=== PATIENT | male | born 1950 | race Caucasian/White ===

== ENCOUNTER 2018-10-12 06:22 | Day surgery (SDC) | payer BC ==
--- NOTE | 2018-10-11 19:36 | HP ---
HISTORY AND PHYSICAL CHIEF COMPLAINT: Left shoulder pain. HISTORY OF PRESENT ILLNESS: The patient is 68 years old, [id number], who presents with progressive left shoulder pain for the past several months. He has tried conservative measures with persistent pain with overhead use and at night. He notes that it limits his normal function and activities. PAST MEDICAL HISTORY: 1. Hypertension. 2. Myasthenia gravis. 3. Reflux disease. 4. Hypothyroidism. PAST SURGICAL HISTORY: 1. Partial thyroidectomy. 2. Left elbow olecranon bursectomy. 3. Right inguinal hernia repair. 4. Bilateral knee arthroscopy. 5. Bilateral cataract removal. 6. Colonoscopy. CURRENT MEDICATIONS: Current medications include: 1. Lasix. 2. Metoprolol. 3. Prednisone. 4. Terazosin. ALLERGIES: HE DENIES DRUG ALLERGIES. FAMILY HISTORY: Significant for heart disease. SOCIAL HISTORY: Negative for current tobacco or alcohol use. REVIEW OF SYSTEMS: Sixteen-point review of systems otherwise reviewed and is noncontributory. PHYSICAL EXAMINATION: The patient is approximately 5 feet 10 inches tall, 210 pounds of mesomorphic habitus. HEENT exam is nonfocal. NECK: Supple. He has painless cervical spine motion with Active range of motion of left shoulder forward elevation 145 degrees, external rotation degrees, internal rotation to L2. Motor strength is 5-/5 for abduction and external rotation. He has moderate subacromial crepitus. Impingement test, Neer test and Speed tests are positive. His distal neurovascular exam appears intact in the left upper extremity. MRI report left shoulder shows evidence of a possible full-thickness tear supraspinatus insertion. Intra-articular bicipital tendinosis is also noted. IMPRESSION: 1. Left shoulder impingement with symptomatic rotator cuff tear. 2. Left shoulder bicipital tendinosis. RECOMMENDATIONS: I talked to the patient at length regarding his condition along with treatment options. At this point he is quite symptomatic and opts to proceed with surgery. We will plan to proceed with arthroscopic evaluation with probable subacromial decompression, possible rotator cuff repair versus debridement, and possible biceps tenotomy. We will likely perform that as an outpatient procedure. Risks and benefits were discussed at length in layman's terms. MMODL / IJN: [id number] /
[~2018-10-12 06:22] MED LIST: DEXAMETHASONE SOD PHOSPHATE 10 MG/ML 1 ML VIAL IV ONE; LACTATED RINGERS 1,000 ML IV SCH; MIDAZOLAM 2 MG/2 ML VIAL IV PRN; ONDANSETRON 4 MG/2 ML VIAL IVP ONE
[2018-10-12] MEDS ORDERED: HYDROCORTISONE SUCCINATE 100 MG/2 ML VIAL IVP ONE (07:36)
[2018-10-12 07:40] LABS: Glucose,Whole Blood 100 mg/dL (75-99)
[2018-10-12] MEDS ORDERED: ePHEDrine SULFATE/0.9% NACL/PF 50 MG/5 ML SYRINGE IV ONE (07:52)
[2018-10-12] MEDS ORDERED: MIDAZOLAM 2 MG/2 ML VIAL ONE (07:52)
[2018-10-12] MEDS ORDERED: SUCCINYLCHOLINE CHLORIDE 100 MG/5 ML SYR IV ONE (07:52)
[2018-10-12] MEDS ORDERED: fentaNYL (PF) 50 MCG/ML 2 ML AMP ONE (07:52)
[2018-10-12] MEDS ORDERED: PROPOFOL 10 MG/ML 20 ML VIAL IV ONE (07:52)
[2018-10-12] MEDS ORDERED: EPINEPHrine (PF) 1 ML in SODIUM CHLORIDE 0.9% IRRIGATIO 3,000 ML IRRIGATION ONE ×8 (08:08)
--- NOTE | 2018-10-12 09:18 | P.OP ---
Date of Procedure: 10/12/18 Preoperative Diagnosis: Symptomatic left rotator cuff tear Postoperative Diagnosis: 1.5 cm rotator cuff tear, high-grade partial-thickness tear intra-articular long head of biceps, type II SLAP lesion Procedure(s) Performed: Left shoulder arthroscopic subacromial decompression/superior labral debridement/biceps tenotomy/rotator cuff repair Implants: Arthrex 5.5 mm swivel lock anchor 1 Anesthesia: favian SHETTY Surgeon: Luciano Grijalva Carton Forming Machine Adjuster #1: Agustin Rodriguez Estimated Blood Loss (ml): 10 Pathology: none sent Condition: stable Disposition: PACU Indications for Procedure: The patient's a 68-year-old male who presents with progressive left shoulder pain despite conservative measures. A discussion of the risks and benefits of operative intervention versus continued conservative measures was made with the patient. He opted to proceed with surgery. Operative risks to include infection, neurovascular injury, development of blood clots, possible tendon rerupture, possible postoperative stiffness and need for subsequent procedures was discussed. Informed consent was obtained. Operative Findings: As below Description of Procedure: The patient was brought to the operating room, and after induction of general anesthesia was placed in a beachchair position. A preoperative interscalene block was placed for postoperative analgesia. I examined the left shoulder. There was no gross block to passive motion or gross glenohumeral instability. The left upper extremity was prepped and draped in normal fashion. The bony outlines the acromion, distal clavicle, and coracoid process were outlined with a skin marker. The glenohumeral joint was inflated with 50 mL of saline utilizing a spinal needle from posterior approach. A posterior portal was made through a 5 mm skin incision 1 cm medial and inferior to the posterior lateral border time. A blunt trocar was used to easily into the joint. Diagnostic arthroscopy was performed. An anterior portal was made just lateral to the coracoid process entering the joint above the subscapularis tendon. The subscapularis tendon appeared to be intact. Anterior labrum was intact. The inferior recess was inspected. The posterior labrum was intact. There was a high-grade partial-thickness tear of the long head of the biceps involving interarticular portion. It was elected to proceed with release at this point. This was released from the superior labrum with electrocautery and was allowed to retract to the bicipital groove. A type II superior labral tear was noted in this was debrided back to stable base with a motorized shaver. On inspection the rotator cuff a full-thickness tear involving the anterior aspect the supraspinatus was noted.. A lateral portal was made 2 centimeters inferior to the anterior lateral border of the acromion. The rotator cuff was then mobilized with a traction suture. This was then easily brought back to the greater tuberosity. The soft tissue on the undersurface of the acromion was debrided with a motorized shaver and electrocautery clearly defining the anterior medial and lateral borders as well as the distal clavicle. An anterior inferior acromioplasty was performed with a motorized carmencita starting anterolateral, then extending this posteriorly, then extending this medially. I converted to a flat acromion and this was verified in the posterior and lateral viewing portals. The greater tuberosity was lightly decorticating with a shaver down to a bleeding bony surface. A #2 fiber tape was passed through the rotator cuff with a scorpion suture passer. A central fiber link was also placed. A lateral anchor was placed utilizing the appropriate starting awl. 5.5 mm swivel lock anchor was inserted. Good purchase was obtained. Final arthroscopic view showed adequate compression at the footprint. The arthroscope was then removed. The portals were closed with simple 3-0 nylon sutures. A sterile dressing was applied in addition to a sling. The patient was then awoken from general anesthesia and transferred to recovery room in good condition. Blood loss was estimated at 10 mL. No complications were incurred. Sponge and needle counts were correct in the case. Duarte CORTEZ assisted and the major components of the case to include arm positioning, anchor placement, and rotator cuff repair.
[2018-10-12 09:29] VITALS: TEMP 97.2
[2018-10-12] MEDS: HYDROmorphone 0.5 MG/0.5 ML SYRINGE IVP PRN ×4 (09:38→09:56)
[2018-10-12] MEDS ORDERED: fentaNYL (PF) 50 MCG/ML 2 ML AMP IVP ONE ×2 (10:11→10:16)
[2018-10-12] MEDS ORDERED: LACTATED RINGERS 1,000 ML IV ONE (10:15)
[2018-10-12 10:21] VITALS: RESP 16
[2018-10-12 10:35] VITALS: BP 118/70
[2018-10-12] MEDS ORDERED: HYDROcodone/APAP 7.5-325MG 1 EACH TAB PO ONE (10:44)
[2018-10-12 10:49] VITALS: PULSE 64
== END 2018-10-12 11:23 | disposition home or self-care (01) ==
LOC: OR 06:22
PROVIDERS: ATTEND Orthopaedic Surgery
DX: M75.102 Unspecified rotator cuff tear or rupture of left shoulder, not specified as traumatic (principal); S46.112A Strain of muscle, fascia and tendon of long head of biceps, left arm, initial encounter; X58.XXXA Exposure to other specified factors, initial encounter; S43.432A Superior glenoid labrum lesion of left shoulder, initial encounter; I11.0 Hypertensive heart disease with heart failure; I50.9 Heart failure, unspecified; K21.9 Gastro-esophageal reflux disease without esophagitis; G70.00 Myasthenia gravis without (acute) exacerbation; F41.9 Anxiety disorder, unspecified; F41.0 Panic disorder [episodic paroxysmal anxiety]; F32.9 Major depressive disorder, single episode, unspecified; H93.3X9 Disorders of unspecified acoustic nerve; N52.8 Other male erectile dysfunction; M17.10 Unilateral primary osteoarthritis, unspecified knee; Z85.850 Personal history of malignant neoplasm of thyroid; E89.0 Postprocedural hypothyroidism; Z79.82 Long term (current) use of aspirin; Z79.52 Long term (current) use of systemic steroids; Z79.899 Other long term (current) drug therapy
CPT/HCPCS: 29826; 29827; C1713; C1894; J2250; J1100; J1720; J0690; J2405; J0171; J3010; J0330; J2704; J1170

== ENCOUNTER → 2023-03-14 | Outpatient (CLI) | payer MEDICARE, BC ==
[2023-03-14 15:27] LABS: BUN/Creat Ratio 19.42 Ratio (12.00-20.00); Blood Urea Nitrogen 23.3 mg/dL (9.0-27.0); Calcium 9.9 mg/dL (8.7-10.3); Carbon Dioxide 23.5 mmol/L (21.6-31.8); Chloride 107 mmol/L (96-109); Glucose 95 mg/dL (70-110); Potassium 4.4 mmol/L (3.5-5.5); Sodium 142 mmol/L (135-145)
[2023-03-14 15:32] LABS: HCT 45.1 % (39.6-50.0); HGB 15.6 g/dL (13.0-17.0); RBC 5.01 X 10*6/uL (4.40-5.60); WBC 7.43 X 10*3/uL (4.50-10.00)
[2023-03-14 15:33] LABS: Basophils # (A) 0.03 X 10*3/uL (0.00-0.10); Basophils % (A) 0.4 %; Eosinophils # (A) 0.08 X 10*3/uL (0.04-0.35); Eosinophils % (A) 1.1 %; Lymphocytes # (A) 1.36 X 10*3/uL (0.90-5.00); Lymphocytes % (A) 18.3 %; MCH 31.1 pg (27.0-32.0); MCHC 34.6 g/dL (32.0-37.0); Mean Platelet Volume 10.4 FL (9.5-12.2); Monocytes # (A) 0.58 X 10*3/uL (0.20-1.00); Monocytes % (A) 7.8 %; NRBC Per 100 WBC 0 X 10*3/uL (0.00-0.01); Neutrophils # (A) 5.36 X 10*3/uL (1.80-7.70); Neutrophils % (A) 72.1 %; Platelet Count 244 X 10*3/uL (140-440); RDW 13.8 % (11.5-14.5)
== END | disposition home or self-care (01) ==
LOC: LABPAT 11:26
PROVIDERS: ATTEND Orthopaedic Surgery
DX: G70.00 Myasthenia gravis without (acute) exacerbation (principal)
CPT/HCPCS: 80048; 85025; 86850; 86900; 86901; 87070

== ENCOUNTER → 2023-03-14 | Outpatient (CLI) | payer MEDICARE, BC | END | disposition home or self-care (01) | LOC: LABWHC1 11:29 | PROVIDERS: ATTEND Family Medicine | DX: Z53.9 Procedure and treatment not carried out, unspecified reason (principal) ==

== ENCOUNTER 2023-03-21 05:45 | Day surgery (SDC) | payer MEDICARE, BC ==
[2023-03-15 12:54] VITALS: BMI 27.2
--- NOTE | 2023-03-20 08:12 | P.HPOR ---
History of Present Illness H&P Date: 03/20/23 Chief Complaint: Left hip pain The patient is a 72-year-old retired male who presents with progressive left hip pain for the past several years worsening recently. He is having pain with weightbearing activities. He notes giving way. He notes groin and thigh pain. He has tried medications without much relief. He is having night symptoms. Review of Systems Negative except as in HPI Past Medical History Past Medical History: Cancer, Hypertension, Osteoarthritis (OA) Additional Past Medical History / Comment(s): MYASTHENIA GRAVIS DIAGNOSED POST ANESTHESIA WHEN HE BACK SURGERY, NO symptoms with myasthenia gravis. HEADACHES FROM IG INFUSION. 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 THYROID CANCER. GOUT,Covid 2020-ICU petr collapsed lungs History of Any Multi-Drug Resistant Organisms: None Reported Past Surgical History: Hernia Repair, Orthopedic Surgery Additional Past Surgical History / Comment(s): 11/12/18 RIGHT SHOULDER. LUMBAR BACK SURGERY FUSION HAS 2 RODS AND CAGES, RIGHT AND LEFT KNEE ARTHROSCOPIC, RIGHT ING,HERNIA X2. PARTIAL THYROIDECTOMY Past Anesthesia/Blood Transfusion Reactions: No Reported Reaction Additional Past Anesthesia/Blood Transfusion Reaction / Comment(s): no hx blood transfusion Smoking Status: Never smoker - Past Family History Mother Family Medical History: No Reported History Medications and Allergies Home Medications Medication Instructions Recorded Confirmed Type Furosemide [Lasix] 20 mg PO QAM PRN 11/12/15 03/15/23 History Potassium Chloride [Klor-Con 20] 20 meq PO HS 11/12/15 03/15/23 History Terazosin HCl [Hytrin] 10 mg PO HS 11/12/15 03/15/23 History Acetaminophen 325 - 650 mg PO Q6H PRN 10/09/18 03/15/23 History Calcium/Magnesium/Zinc 1 tab PO DAILY 10/09/18 03/15/23 History [Zajcxan-Oeddogzqw-Epjc Tablet] Ivig 1 dose IV Q42D 10/09/18 03/15/23 History Metoprolol Tartrate [Lopressor] 25 mg pe PO HS 10/09/18 03/15/23 History predniSONE 20 mg PO PANIAGUA 10/09/18 03/15/23 History Cholecalciferol [Vitamin D3 (125 125 mcg PO DAILY 03/15/23 03/15/23 History Mcg = 5000 Iu)] SUMAtriptan succinate 50 mg PO DIRECTED PRN 03/15/23 03/15/23 History diphenhydrAMINE [Benadryl] 25 mg PO ONCE PRN 03/15/23 03/15/23 History mycophenolate mofetiL [Cellcept] 1,000 mg PO HS 03/15/23 03/15/23 History mycophenolate mofetiL [Cellcept] 500 mg PO QAM 03/15/23 03/15/23 History Allergies Allergy/AdvReac Type Severity Reaction Status Date / Time adhesive tape Allergy skin Verified 03/15/23 12:22 redness Physical Examination - Hip left Gait: antalgic Tenderness with palpation: anterior Pain with motion: internal rotation and hip flexion ROM: flexion: 80 degrees ROM: internal rotation: 10 degrees (With pain) ROM: external rotation: 60 degrees Crepitus with motion: Yes Strength: abduction: 4/5 Tests: impingement tests: positive Results The patient is a well-developed well-nourished male proximal 5 foot 10, 185 pounds of the Sushila habitus. HEENT exam is nonfocal, neck is supple. He has painful limited passive motion of the left hip. Clinically he has shortening compared to the right. He has a Trendelenburg gait pattern. His distal neurovascular appears intact in the left lower extremity. - Diagnostic results Hip MRI: image reviewed (MRI of the left hip shows evidence of severe osteoarthrosis with [id number] changes.) Assessment and Plan Assessment: Left hip severe osteoarthrosis Plan: I talked with the patient at length regarding his condition along with treatment options. At this point he is quite limited because of pain related to his left hip osteoarthrosis despite conservative measures. After a thorough discussion, he opts to proceed with surgery. We will plan to proceed with left total hip arthroplasty utilizing an anterior approach. Risks and benefits were discussed at length in layman's terms. We will institute DVT prophylaxis postoperatively.
[~2023-03-21 05:45] MED LIST changes: +ACETAMINOPHEN TAB 500 MG TAB PO PRN; -DEXAMETHASONE SOD PHOSPHATE 10 MG/ML 1 ML VIAL IV ONE; -LACTATED RINGERS 1,000 ML IV SCH; +MELOXICAM 7.5 MG TAB PO PRN; -MIDAZOLAM 2 MG/2 ML VIAL IV PRN; -ONDANSETRON 4 MG/2 ML VIAL IVP ONE; +TRANEXAMIC 1,000 MG/100ML-NACL 1,000 MG in SALINE 1 100ML.BAG IVPB PRN
[2023-03-21] MEDS: LACTATED RINGERS 1,000 ML IV SCH ×2 (06:41→07:31)
[2023-03-21 07:05] LABS: Prothrombin Time 11.1 sec (10.0-12.5)
[2023-03-21] MEDS: ONDANSETRON 4 MG/2 ML VIAL IVP ONE ×2 (07:05→14:35)
[2023-03-21] MEDS ORDERED: MIDAZOLAM 2 MG/2 ML VIAL IVP ONE ×2 (07:05→07:17)
[2023-03-21] MEDS ORDERED: fentaNYL (PF) 50 MCG/ML 2 ML AMP IVP ONE (07:17)
[2023-03-21] MEDS ORDERED: fentaNYL (PF) 50 MCG/ML 2 ML AMP ONE (07:27)
[2023-03-21] MEDS ORDERED: PHENYLEPHRINE 10 MG/ML VIAL ONE (07:27)
[2023-03-21] MEDS ORDERED: MIDAZOLAM 2 MG/2 ML VIAL ONE (07:27)
[2023-03-21] MEDS ORDERED: SUGAMMADEX SODIUM 200 MG/2 ML SDV IV ONE (07:27)
[2023-03-21] MEDS ORDERED: ROCURONIUM 10 MG/ML (5 ML VIAL) IV ONE (07:27)
[2023-03-21] MEDS ORDERED: HYDROmorphone (PF) 1 MG/ML ONE (07:27)
[2023-03-21] MEDS ORDERED: LIDOCAINE 1% INJ 10MG/ML (20 ML MDV) ONE (07:27)
[2023-03-21] MEDS ORDERED: PROPOFOL 10 MG/ML 20 ML VIAL IV ONE (07:27)
[2023-03-21] MEDS ORDERED: ePHEDrine 50 MG/ML 1 ML VIAL ONE (07:27)
[2023-03-21] MEDS ORDERED: TRANEXAMIC 1,000 MG/100ML-NACL PREMIX BAG ONE (07:27)
[2023-03-21] MEDS ORDERED: ROPIVACAINE 5 MG/ML 30 ML VIAL ONE (07:27)
[2023-03-21] MEDS ORDERED: ceFAZolin 3,000 MG in SODIUM CHLORIDE 0.9% IRRIGATIO 3,000 ML IRRIGATION ONE (08:03)
[2023-03-21] MEDS ORDERED: LACTATED RINGERS 1,000 ML IV ONE (09:07)
[2023-03-21] MEDS ORDERED: hydrOXYzine pamoate 25 MG CAP PO PRN (09:14)
[2023-03-21] MEDS ORDERED: HYDROmorphone 0.5 MG/0.5 ML SYRINGE IVP PRN ×2 (09:14)
[2023-03-21] MEDS ORDERED: MAGNESIUM HYDROXIDE 2,400 MG/30 ML CUP PO PRN (09:14)
[2023-03-21] MEDS ORDERED: HYDROcodone/APAP 5-325MG 1 EACH TAB PO PRN (09:14)
[2023-03-21] MEDS ORDERED: NALOXONE 0.4 MG/ML 1 ML VIAL IV PRN (09:14)
--- NOTE | 2023-03-21 09:38 | P.OP ---
Date of Procedure: 03/21/23 Preoperative Diagnosis: Left hip severe osteoarthrosis Postoperative Diagnosis: Same Procedure(s) Performed: Left total hip arthroplastypress-fit anterior approach Implants: Depuy Corail size [id number] standard collared press-fit femoral stem, 49 mm/28 mm dual mobility femoral head, 58 mm Edmonds acetabular shell with metal acetabular liner. Anesthesia: DIOGENES Surgeon: Luciano Grijalva Interior Surface Insulation Worker #1: Ariseto Weston Estimated Blood Loss (ml): 150 Pathology: none sent Indications for Procedure: The patient's a 72-year-old male presents with progressive left hip pain secondary to osteoarthrosis despite conservative measures. A discussion of the risks and benefits of operative intervention versus continued conservative measures was made with patient. He opted to proceed with surgery. Specific risks of surgery to include infection, neurovascular injury, development of blood clots, fracture, leg length discrepancy, possible instability, possible component loosening/failure and need for subsequent procedures was discussed. Informed consent was obtained. Operative Findings: As below Description of Procedure: The patient was brought to the operating room, and after induction of spinal anesthesia was placed supine on the Nehal table. Positioning was checked with fluoroscopy. The left hip was then prepped and draped in a normal fashion. A 12 cm incision was then made starting 2 fingerbreadths distal and 3 finger breaths posterior to the ASIS in line with the proximal femur. The skin was incised sharply. Subcutaneous tissues were divided sharply. Electrocautery was used for hemostasis. The fascia was split in line with skin incision. The interval between the sartorius and tensor fascia patricia was then bluntly developed. The posterior fascia was opened with electrocautery. The lateral circumflex vessels were identified and cauterized prior to sectioning. A retractor was placed along the superior femoral neck as well as the anterior acetabular rim. A wide capsulotomy was performed. The neck cut was then made at a 45 angle to the shaft approximately 1 1/2 cm above the level of the lesser trochanter. The head was extracted. Attention was then paid towards preparing the acetabular. Anterior and posterior retractors were placed. The remaining capsular labral tissue sharply debrided clearly defining the acetabular margins. I began reaming with a 51 mm reamer taking care to initially medialize then reaming at 45 of abduction and 20 of anteversion. Sequential reaming is performed up to 57 mm. A trial 58 mm acetabular shell was inserted in the same orientation and was fully seated. There was good rim fit and stability. Positioning was checked with fluoroscopy. The final 58 mm acetabular shell was inserted again at 45 of abduction and 20 of anteversion. This was fully seated. There was good rim fit and stability. Again fluoroscopy was used to check the adequacy of placement. A neutral metal liner was gently impacted. Care was taken to avoid any soft tissue in terposition. Pulsatile lavage was utilized. Attention was then paid towards preparing the proximal femur. The central region was cleared of soft tissue. A canal finder was used to find the femoral canal. Sequential broaching was performed up to size 14 taking care to lateralize proximally. A calcar mill was used to fashion the medial calcar. There was good rotational stability. A standard neck along with a 49/28 mm +5 femoral head was placed. The hip was gently reduced. Fluoroscopy was used to check the adequacy of positioning along with leg lengths. I felt both were good. The hip was gently dislocated. The trial components were removed. The final size 14 collared standard press-fit femoral stem was inserted parallel to the posterior cortex. This was fully seated and there was good rotational stability. A 49/28 mm +5 femoral head was placed. This was gently impacted. The hip was then gently reduced. Final fluoroscopic view showed adequate placement implant along with zoroastrianism of leg length. Stability was checked with 80 of external rotation and 60 of extension of the right hip. The wound was irrigated with sterile lavage. The fascia was closed with running 0 Vicryl suture. There was minimal drainage therefore a deep drain was not placed. The second dose of IV TXA was given. The subcutaneous tissues were reapproximated interrupted 2-0 Vicryl sutures. The skin was reapproximated with 3-0 subcuticular strata fix suture. Skin tape and adhesive was applied. A sterile dressing was applied. The patient was then awoken from sedation and transferred to recovery room in good condition. Blood loss was estimated at 150 mL. No complications were incurred. Sponge and needle counts were correct at the end of the case. Aristeo CORTEZ assisted during the major components is case to include exposure, bone resection, implantation, and closure.
[2023-03-21] MEDS: HYDROmorphone 0.5 MG/0.5 ML SYRINGE IVP PRN ×3 (09:57→10:37)
--- NOTE | 2023-03-21 10:04 | XR ---
EXAMINATION TYPE: XR Hip Limited LT DATE OF EXAM: 03/21/2023 COMPARISON: None HISTORY: Left hip replacement TECHNIQUE: AP left hip FINDINGS: Femoral prosthesis has been placed. No acute fractures are evident. Soft tissue postsurgica l changes are evident. IMPRESSION: 1. No acute fracture post left hip replacement
--- NOTE | 2023-03-21 10:56 | P.ANPRN ---
Procedure Note - Anesthesia - Nerve Block Performed Left Julio Single Time Out Performed: Yes ([id number]) Date of Procedure: 03/21/23 Procedure Start Time: : Procedure Stop Time: Location of Patient: PreOp Indication: Acute Post-Operative Pain, Requested by Surgeon Specifically requested for management of pain by DrGustavo: Luciano Grijalva Sedation Type: Sedate with meaningful contact maintained Preparation: Sterile Prep Position: Supine Catheter: None Needle Types: Pajunk Needle Gauge: 21 Ultrasound used to visualize needle placement: Yes Ultrasound used to observe medication spread: Yes Injectate: 0.5% Ropivacaine (see comment for volume) (30cc) Blood Aspirated: No Pain Paresthesia on Injection Noted: No Resistance on Injection: Normal Image Stored and Saved: Yes Events: Uneventful and Well Tolerated
--- NOTE | 2023-03-21 12:49 | XR ---
EXAMINATION TYPE: XR Hip Limited LT, FL guidance operating room DATE OF EXAM: 03/21/2023 Comparison: None Clinical History: 72-year-old male Left Hip-Ant Findings: DAP 1.2890 Gycm2. FL 26.[address] DAVIS Impression: Intraoperative fluoroscopy as above.
[2023-03-21] MEDS: HYDROcodone/APAP 7.5-325MG 1 EACH TAB PO PRN ×2 (14:24→20:42)
[2023-03-21] MEDS ORDERED: SUMAtriptan succinate 50 MG TAB PO PRN (15:50)
[2023-03-21] MEDS ORDERED: FUROSEMIDE 20 MG TAB PO PRN (15:50)
--- NOTE | 2023-03-21 16:01 | P.CONS ---
History of Present Illness - Reason for Consult Consult date: 03/21/23 Medical management Requesting physician: Luciano Grijalva - Chief Complaint Left hip surgery - History of Present Illness This is a pleasant 72-year-old patient who follows with Dr. Aubrey Grijalva. 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 Patient is in the ICU in 2020 with COVID. Patient's also had previous lumbar surgery. Has undergone left total hip arthroplasty. Some pain is present at the oper ative site. No nausea vomiting. ,Lina at the bedside. Review of systems: GEN.: Tired EYES: None HEENT: Deaf in the right ear NECK: None RESPIRATORY: None CARDIOVASCULAR: None GASTROINTESTINAL: None GENITOURINARY: None MUSCULOSKELETAL: Chronic low back pain, left hip pain LYMPHATICS: None HEMATOLOGICAL: None PSYCHIATRY: None NEUROLOGICAL: None INVESTIGATIONS, reviewed in the clinical context: 03/14/2023: White count 7.4 hemoglobin 15.6 platelets 244 sodium 142 potassium 4.4 creatinine 1.2 Assessment and plan: -Left total hip arthroplasty. Pain controllable or throat. Xarelto for DVT prophylaxis. -Myasthenia gravis. Patient admitted to his neurologist recently. Will increase the CellCept for his surgery. Patient takes prednisone 20 mg once a week on Sundays. No change of dose was recommended for that. Discussed with the patient. 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 Hytrin. Care was discussed with the patient and at the bedside. Questions answered. Thank you Dr. Grijalva Past Medical History Past Medical History: Cancer, Hypertension, Osteoarthritis (OA) Additional Past Medical History / Comment(s): MYASTHENIA GRAVIS DIAGNOSED POST ANESTHESIA WHEN HE BACK SURGERY, NO symptoms with myasthenia gravis. HEADACHES FROM IG INFUSION. 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 THYROID CANCER. GOUT,Covid 2020-ICU petr collapsed lungs History of Any Multi-Drug Resistant Organisms: None Reported Past Surgical History: Hernia Repair, Orthopedic Surgery Additional Past Surgical History / Comment(s): 11/12/18 RIGHT SHOULDER. and left shoulder, right hand surgery, LUMBAR BACK SURGERY FUSION HAS 2 RODS AND CAGES, RIGHT AND LEFT KNEE ARTHROSCOPIC, RIGHT ING,HERNIA X2. PARTIAL THYROIDECTOMY, left hip replacement Past Anesthesia/Blood Transfusion Reactions: No Reported Reaction Additional Past Anesthesia/Blood Transfusion Reaction / Comm: no hx blood transfusion Past Psychological History: Anxiety Additional Psychological History / Comment(s): CLAUSTROPHOBIC Smoking Status: Never smoker Past Alcohol Use History: None Reported Past Drug Use History: None Reported - Past Family History Mother Family Medical History: No Reported History Medications and Allergies Home Medications Medication Instructions Recorded Confirmed Type Furosemide [Lasix] 20 mg PO QAM PRN 11/12/15 03/21/23 History Potassium Chloride [Klor-Con 20] 20 meq PO HS 11/12/15 03/21/23 History Terazosin HCl [Hytrin] 10 mg PO HS 11/12/15 03/21/23 History Acetaminophen 325 - 650 mg PO Q6H PRN 10/09/18 03/21/23 History Calcium/Magnesium/Zinc 1 tab PO DAILY 10/09/18 03/21/23 History [Qeqzojs-Bersqgxdf-Ujjb Tablet] Ivig 1 dose IV Q42D 10/09/18 03/21/23 History Metoprolol Tartrate [Lopressor] 25 mg pe PO HS 10/09/18 03/21/23 History predniSONE 20 mg PO PANIAGUA 10/09/18 03/21/23 History Cholecalciferol [Vitamin D3 (125 125 mcg PO DAILY 03/15/23 03/21/23 History Mcg = 5000 Iu)] SUMAtriptan succinate 50 mg PO DIRECTED PRN 03/15/23 03/21/23 History diphenhydrAMINE [Benadryl] 25 mg PO ONCE PRN 03/15/23 03/21/23 History mycophenolate mofetiL [Cellcept] 1,000 mg PO HS 03/15/23 03/21/23 History mycophenolate mofetiL [Cellcept] 500 mg PO QAM 03/15/23 03/21/23 History Allergies Allergy/AdvReac Type Severity Reaction Status Date / Time adhesive tape Allergy skin Verified 03/21/23 06:25 redness Physical Exam Vitals: Vital Signs Temp Pulse Pulse Resp BP BP Pulse Ox 03/21/23 14:37 98.5 F 112 H 19 170/84 94 L 03/21/23 14:00 97.5 F L 62 22 135/77 96 03/21/23 13:35 64 16 122/70 99 03/21/23 13:05 61 16 126/67 98 03/21/23 12:15 59 L 16 125/65 98 03/21/23 11:45 57 L 16 127/68 98 03/21/23 11:15 61 16 125/67 98 03/21/23 10:45 64 16 127/62 99 03/21/23 10:30 65 18 123/64 99 03/21/23 10:15 63 18 114/58 100 03/21/23 10:00 63 20 129/64 99 03/21/23 09:45 66 20 121/62 99 03/21/23 09:35 97.5 F L 71 22 139/67 98 03/21/23 07:29 52 L 18 140/65 96 03/21/23 07:08 97.9 F 57 L 18 129/71 97 Intake and Output 03/21/23 03/21/23 03/21/23 06:59 14:59 22:59 Intake Total 2000 Output Total 150 Balance 1851 Intake: IV 2000 Output: Estimated Blood Loss 150 Other: Weight 87.4 kg 87.4 kg
[2023-03-21] MEDS: ONDANSETRON 4 MG/2 ML VIAL IVP PRN (16:18)
[2023-03-21] MEDS ORDERED: METOCLOPRAMIDE 5 MG/ML 2 ML VIAL IVP PRN (19:52)
[2023-03-21] MEDS: DOXAZOSIN 4 MG TAB PO SCH (20:44)
[2023-03-21] MEDS ORDERED: METOPROLOL TARTRATE 25 MG TAB PO SCH (21:00)
[2023-03-21] MEDS ORDERED: POTASSIUM CHLORIDE ER 20 MEQ TAB.ER PO SCH (21:00)
[2023-03-21] MEDS ORDERED: SENNOSIDES-DOCUSATE SODIUM 1 EACH TAB PO SCH (21:00)
[2023-03-22 03:41] VITALS: PULSE 65
[2023-03-22] MEDS: HYDROcodone/APAP 7.5-325MG 1 EACH TAB PO PRN ×2 (04:47→11:39)
[2023-03-22] MEDS: LACTATED RINGERS 1,000 ML IV SCH (08:00)
[2023-03-22] MEDS: DOXAZOSIN 4 MG TAB PO SCH (08:29)
[2023-03-22] MEDS ORDERED: NON FORMULARY DRUG (Calcium/Magnesium/Zinc [Calcium-Magnesium-Zinc Tablet] 1 EACH Tablet) PO SCH (09:00)
[2023-03-22] MEDS ORDERED: CHOLECALCIFEROL 125 MCG (5000 IU) TABLET PO SCH (09:00)
[2023-03-22] MEDS ORDERED: RIVAROXABAN 10 MG TAB PO SCH (09:00)
[2023-03-22 09:31] VITALS: BP 115/57; RESP 20; TEMP 98.6
[2023-03-22 10:45] LABS: Basophils # (A) 0.02 X 10*3/uL (0.00-0.10); Basophils % (A) 0.3 %; Eosinophils # (A) 0.09 X 10*3/uL (0.04-0.35); Eosinophils % (A) 1.2 %; HCT 33.6 % (39.6-50.0); HGB 11.3 g/dL (13.0-17.0); Lymphocytes # (A) 0.96 X 10*3/uL (0.90-5.00); Lymphocytes % (A) 12.6 %; MCH 30.8 pg (27.0-32.0); MCHC 33.6 g/dL (32.0-37.0); MCV 91.6 FL (80.0-97.0); Monocytes # (A) 0.75 X 10*3/uL (0.20-1.00); Monocytes % (A) 9.9 %; NRBC Per 100 WBC 0 X 10*3/uL (0.00-0.01); Neutrophils # (A) 5.75 X 10*3/uL (1.80-7.70); Neutrophils % (A) 75.7 %; Platelet Count 231 X 10*3/uL (140-440); RBC 3.67 X 10*6/uL (4.40-5.60); RDW 13.7 % (11.5-14.5); WBC 7.59 X 10*3/uL (4.50-10.00)
--- NOTE | 2023-03-22 10:47 | P.PN ---
Subjective Progress Note Date: 03/22/23 Principal diagnosis: Left hip osteoarthritis Patient was seen at bedside this morning with dressing present over left anterior hip. Patient says he has been doing well since surgery yesterday. Patient says last night he did walk down the hallway using walker. Patient says he has urinated several times since surgery yesterday. Patient says he is hoping to go home later today. Patient says he does have a walker for home. Patient says the pain is well-controlled with medication. Patient denies chest pain, fever, shortness breath, nausea, vomiting, change in vision, loss of bowel/bladder control. Objective - Vital Signs Vital signs: Vital Signs Temp 98.7 F 03/22/23 01:17 Pulse 65 03/22/23 01:17 Resp 18 03/22/23 01:17 BP 105/58 03/22/23 01:17 Pulse Ox 95 03/22/23 01:17 FiO2 Intake & Output 03/21/23 03/22/23 03/22/23 18:59 06:59 18:59 Intake Total 2000 Output Total 150 Balance 1851 Weight 87.4 kg Intake: IV 2000 Output: Estimated Blood Loss 150 Other: Voiding Method Urinal # Voids 3 1 - Exam Left hip: Incision is clean, dry, and intact. The exofin fusion tape is in good condition. There is minimal soft tissue swelling and ecchymosis surrounding the medial and lateral aspects of the incision. Calf is soft, no tenderness with palpation. Plantar flexion, dorsiflexion, EHL, FHL are intact. Sensory exam to light touch throughout the extremity is intact, dorsal pedis pulses 2+. Assessment and Plan Assessment: 1. Left hip osteoarthritis - Postoperative day #1 status post direct anterior left total hip arthroplasty Plan: 1. Left hip osteoarthritis - left total hip arthroplasty performed yesterday, 03/21/2023. Patient stable at bedside this morning. Patient does have a walker home. Pending PT/OT evaluation today, plan for discharge home today with health services. 2. Appreciate medical management 3. Pain management - [place] 4. DVT prophylaxis - Xarelto in hospital. Going home with Eliquis 2.5 mg twice a day times x 2 weeks 5. GI prophylaxis - senna 6. PT/OT - weightbearing as tolerated walker 7. Encourage incentive spirometer use 8. Discharge planning - home today with health services pending PT/OT eval Time with Patient: Less than 30
--- NOTE | 2023-03-22 10:52 | P.DS ---
Providers Date of admission: 03/21/2023 Expected date of discharge: 03/22/23 Attending physician: Luciano Grijalva Consults: 03/21/23 09:14 Consult Physician Routine Consulting Provider: Floyd Camarillo Consult Reason/Comments: medical management s/p direct anterior left total hip arthroplasty Do you want consulting provider notified?: Yes Primary care physician: Aubrey Grijalva Hospital Course: Date of admission: 03/21/2023 Date of discharge: 03/22/2023 Admission diagnosis: Left hip osteoarthritis Discharge diagnosis: Same Attending physician: Dr. Grijalva Surgical procedures: Direct anterior left total hip arthroplasty Brief history: Patient is a 72-year-old male with a history of progressive primary left hip osteoarthritis. At this point patient has failed conservative treatment measures and has opted to proceed with a elective left total hip arthroplasty. Hospital course: Details of patient's surgery can be found in operative report. Patient tolerated the procedure well and was subsequently transported to orthopedic floor. Patient's orthopeidc and medical care was provided daily. Patient had daily laboratory tests performed for evaluation of overall blood counts. Patient had daily physical therapy to include strengthening range of motion as well as education with walker ambulation. Patient was treated with Xarelto for their postoperative DVT prophylaxis during their inpatient stay. Patient was noted to have a relatively uneventful postoperative course. Patient reported satisfactory pain control with oral pain medications by postoperative day 1. Patient showed satisfactory progress with physical therapy. Patient moved steadily through the program and had no difficulty meeting the goals by postoperative day 1. Given patient's otherwise satisfactory course and having met physical therapy goals, plan is to discharge patient home with health services on postoperative day 1. Discharge condition/disposition: Patient will be discharged home with health services in stable condition. Discharge medications: Instructions are given on resumption of patient's normal daily medications per primary care recommendation, in addition patient will be prescribed [place]; senna; Zofran; Eliquis 2.5 mg twice a day 2 weeks. Discharge instructions: 1. Wound care and infection precautions, keep incision dry and covered while showering, no lotions, creams, moisturizers. No soaking, tubs, pools, hottubs. Do not scrub over the incision. 2. Weight-bear as tolerated with walker / cane until follow-up. 3. Ice and elevate when necessary. Do not exceed 20 minutes per hour with ice pack. 4. Utilize compression sleeve until seen at first follow up appointment. 5. Visiting nursing care. 6. Home physical therapy. 7. Pain meds and anticoagulants per prescription. 8. Pain medication has potential to cause constipation. Increase oral fluid and fiber intake. Contact primary care provider if you have not had a bowel movement within 48 hours after discharge 9. No anti-inflammatory medication until discussed at first post operative visit, this including Motrin, Aleve, Mobic, Diclofenac. 10. Follow up in office at 2 weeks postop with Duarte Rodriguez PA-C / Aristeo Weston PA-C 11. Follow up with your primary care doctor 7-10 days after discharge. 12. Contact [facility] with any questions, . Assessment: Left hip osteoarthritis Procedures: Direct anterior left total hip arthroplasty Patient Condition at Discharge: Good Plan - Discharge Summary Discharge Rx Participant: Yes New Discharge Prescriptions: New Sennosides-Docusate Sodium [Senokot-S] 2 each PO HS #60 tab Continue Potassium Chloride [Klor-Con 20] 20 meq PO HS Terazosin HCl [Hytrin] 10 mg PO HS Furosemide [Lasix] 20 mg PO QAM PRN PRN Reason: LEG SWELLING Acetaminophen 325 - 650 mg PO Q6H PRN PRN Reason: Pain Calcium/Magnesium/Zinc [Wzofeyj-Bowvlmwbe-Aziu Tablet] 1 tab PO DAILY Metoprolol Tartrate [Lopressor] 25 mg pe PO HS predniSONE 20 mg PO PANIAGUA Ivig 1 dose IV Q42D Cholecalciferol [Vitamin D3 (125 Mcg = 5000 Iu)] 125 mcg PO DAILY diphenhydrAMINE [Benadryl] 25 mg PO ONCE PRN PRN Reason: prior to IVIG infusion mycophenolate mofetiL [Cellcept] 500 mg PO QAM mycophenolate mofetiL [Cellcept] 1,000 mg PO HS SUMAtriptan succinate 50 mg PO DIRECTED PRN PRN Reason: migraines Discharge Medication List Furosemide [Lasix] 20 mg PO QAM PRN 11/12/15 [History] Potassium Chloride [Klor-Con 20] 20 meq PO HS 11/12/15 [History] Terazosin HCl [Hytrin] 10 mg PO HS 11/12/15 [History] Acetaminophen 325 - 650 mg PO Q6H PRN 10/09/18 [History] Calcium/Magnesium/Zinc [Tczslep-Dclzvtpyv-Hobf Tablet] 1 tab PO DAILY 10/09/18 [History] Ivig 1 dose IV Q42D 10/09/18 [History] Metoprolol Tartrate [Lopressor] 25 mg pe PO HS 10/09/18 [History] predniSONE 20 mg PO PANIAGUA 10/09/18 [History] Cholecalciferol [Vitamin D3 (125 Mcg = 5000 Iu)] 125 mcg PO DAILY 03/15/23 [History] SUMAtriptan succinate 50 mg PO DIRECTED PRN 03/15/23 [History] diphenhydrAMINE [Benadryl] 25 mg PO ONCE PRN 03/15/23 [History] mycophenolate mofetiL [Cellcept] 1,000 mg PO HS 03/15/23 [History] mycophenolate mofetiL [Cellcept] 500 mg PO QAM 03/15/23 [History] Sennosides-Docusate Sodium [Senokot-S] 2 each PO HS #60 tab 03/22/23 [Rx] Follow up Appointment(s)/Referral(s): Aristeo Weston PAC [PHYSICIAN [employer]] - 2 Weeks [facility] [NON-STAFF] - As Needed Aubrey Grijalva MD [Primary Care Provider] - 1 Week Patient Instructions/Handouts: Anterior Hip Replacement (DC), Anterior Hip Replacement (GEN) Activity/Diet/Wound Care/Special Instructions: Orthopedic Discharge Instructions: 1. Wound care and infection precautions, keep incision dry and covered while showering, no lotions, creams, moisturizers. No soaking, pools, hot tubs. Do not scrub over incision. 2. Weight-bear as tolerated with walker / cane until follow-up. 3. Ice and elevate when necessary. Do not exceed 20 minutes per hour with ice pack. 4. Utilize compression sleeve until seen at first follow up appointment. 5. Pain meds and anticoagulants per prescription. 6. Pain medication has potential to cause constipation. Increase oral fluid and fiber intake. Contact primary care provider if you have not had a bowel movement within 48 hours after discharge. 7. No anti-inflammatory medication until discussed at first post operative visit, this including Motrin, Aleve, Mobic, Diclofenac. 8. Follow up in office at 2 weeks postop with Duarte Rodriguez PA-C / Aristeo Weston PA-C 9. Follow up with your primary care doctor 7-10 days after discharge. 10. Contact [facility] with any questions, . Keep incision clean, dry, intact. While showering, cover fusion tape with Saran wrap. Keep fusion tape on until follow-up appointment in office 2 weeks Discharge Disposition: HOME WITH HOME HEALTH SERVICES
[2023-03-22] MEDS: ONDANSETRON 4 MG/2 ML VIAL IVP PRN (11:39)
--- NOTE | 2023-03-22 12:42 | P.PN ---
Progress Note - Text Progress Note Date: 03/22/23 - Chief Complaint Left hip surgery - History of Present Illness This is a pleasant 72-year-old patient who follows with Dr. Aubrey Grijalva. 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 Patient is in the ICU in 2020 with COVID. Patient's also had previous lumbar surgery. Has undergone left total hip arthroplasty. Some pain is present at the operative site. No nausea vomiting. ,Lina at the bedside. 03/22/2023: Some pain at the operative site. Did vomit last night. Doing better this morning. Did discuss the patient to have light meals. Special in view of pain medications. Otherwise doing well. Did ambulate for therapy. On examination: VITAL SIGNS: [98.6, 65, 20, 11 5 x 57, 96% room air] GENERAL APPEARANCE: Renal point chair, comfortable HEENT: Normal external appearance of nose and ear. Oral cavity normal EYES: Pupils equal. Conjunctiva normal. NECK: JVD not raised. Mass not palpable. RESPIRATORY: Respiratory effort normal. Lungs clear to auscultation. CARDIOVASCULAR: First and second sounds normal. No edema. ABDOMEN: Soft. Liver and spleen not palpable. No tenderness. No mass palpable. PSYCHIATRY: Alert and oriented x3. Mood and affect normal. MUSCULAR skeletal: Dressing over the left hip incision site. Evidence of OA. INVESTIGATIONS, reviewed in the clinical context: 03/23/2023: White count 7.5 hemoglobin 11.3 platelets 231 03/14/2023: White count 7.4 hemoglobin 15.6 platelets 244 sodium 142 potassium 4.4 creatinine 1.2 Assessment and plan: -Left total hip arthroplasty. Pain controllable or throat. Xarelto for DVT prophylaxis. -Acute postprocedure blood loss anemia expected from surgery Add ferrous sulfate twice a day. -Myasthenia gravis. Seen by his neurologist recently. Did increase the CellCept for his surgery. Patient takes prednisone 20 mg once a week on Sundays. No change of dose was recommended for that. Discussed with the patient. 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 Hytrin. Care was discussed with the patient. Questions answered. Patient to follow-up with his PCP upon discharge. Thank you Dr. Grijalva Past Medical History Past Medical History: Cancer, Hypertension, Osteoarthritis (OA) Additional Past Medical History / Comment(s): MYASTHENIA GRAVIS DIAGNOSED POST ANESTHESIA WHEN HE BACK SURGERY, NO symptoms with myasthenia gravis. HEADACHES FROM IG INFUSION. 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 THYROID CANCER. GOUT,Covid 2020-ICU petr collapsed lungs History of Any Multi-Drug Resistant Organisms: None Reported Past Surgical History: Hernia Repair, Orthopedic Surgery Additional Past Surgical History / Comment(s): 11/12/18 RIGHT SHOULDER. and left shoulder, right hand surgery, LUMBAR BACK SURGERY FUSION HAS 2 RODS AND CAGES, RIGHT AND LEFT KNEE ARTHROSCOPIC, RIGHT ING,HERNIA X2. PARTIAL THYROIDECTOMY, left hip replacement Past Anesthesia/Blood Transfusion Reactions: No Reported Reaction Additional Past Anesthesia/Blood Transfusion Reaction / Comm: no hx blood transfusion Past Psychological History: Anxiety Additional Psychological History / Comment(s): CLAUSTROPHOBIC Smoking Status: Never smoker Past Alcohol Use History: None Reported Past Drug Use History: None Reported
[2023-03-26] MEDS ORDERED: predniSONE 20 MG TAB PO SCH (15:50)
== END 2023-03-22 13:54 | disposition home health service (06) ==
LOC: OR 05:45 → 4SSUR 09:24 → OR 03-22 13:54
PROVIDERS: ATTEND Orthopaedic Surgery
DX: M16.12 Unilateral primary osteoarthritis, left hip (principal); G89.18 Other acute postprocedural pain; I10 Essential (primary) hypertension; G70.00 Myasthenia gravis without (acute) exacerbation; Z85.850 Personal history of malignant neoplasm of thyroid; M10.9 Gout, unspecified; Z86.16 Personal history of COVID-19; E89.0 Postprocedural hypothyroidism; Z96.652 Presence of left artificial knee joint; Z79.624 Long term (current) use of inhibitors of nucleotide synthesis; Z79.899 Other long term (current) drug therapy; Z91.048 Other nonmedicinal substance allergy status
CPT/HCPCS: 97161; 97535; 97166; 64447; 85025; 85610; 73501; 27130; C1776; J2250; J2765; J0690 ×3; J2405 ×2; J3010; J7517 ×2; J1170

== ENCOUNTER → 2023-09-08 | Outpatient (CLI) | payer MEDICARE, BC ==
[2023-09-08 13:04] LABS: Partial Thromboplastin Time 26.5 sec (22.0-30.0)
[2023-09-08 17:28] LABS: Basophils # (A) 0.04 X 10*3/uL (0.00-0.10); Basophils % (A) 0.6 %; Eosinophils # (A) 0.14 X 10*3/uL (0.04-0.35); Eosinophils % (A) 2.1 %; HCT 46.4 % (39.6-50.0); HGB 15.3 g/dL (13.0-17.0); Lymphocytes # (A) 0.97 X 10*3/uL (0.90-5.00); Lymphocytes % (A) 14.4 %; MCH 29.9 pg (27.0-32.0); MCV 90.8 FL (80.0-97.0); Monocytes # (A) 0.44 X 10*3/uL (0.20-1.00); Monocytes % (A) 6.5 %; NRBC Per 100 WBC 0 X 10*3/uL (0.00-0.01); Neutrophils # (A) 5.11 X 10*3/uL (1.80-7.70); Neutrophils % (A) 76.1 %; Platelet Count 251 X 10*3/uL (140-440); RBC 5.11 X 10*6/uL (4.40-5.60); RDW 14.3 % (11.5-14.5); WBC 6.72 X 10*3/uL (4.50-10.00)
[2023-09-08 17:47] LABS: BUN/Creat Ratio 21.75 Ratio (12.00-20.00); Blood Urea Nitrogen 26.1 mg/dL (9.0-27.0); Chloride 108 mmol/L (96-109); Glucose 100 mg/dL (70-110); Potassium 4.4 mmol/L (3.5-5.5); Sodium 143 mmol/L (135-145)
[2023-09-08 17:48] LABS: Calcium 9.7 mg/dL (8.7-10.3); Carbon Dioxide 22.7 mmol/L (21.6-31.8)
== END | disposition home or self-care (01) ==
LOC: LABWHC1 11:45
PROVIDERS: ATTEND Orthopaedic Surgery
DX: Z01.812 Encounter for preprocedural laboratory examination (principal); M17.12 Unilateral primary osteoarthritis, left knee; Z22.322 Carrier or suspected carrier of Methicillin resistant Staphylococcus aureus
CPT/HCPCS: 36415; 80048; 85025; 85610; 85730; 87070

== ENCOUNTER 2023-09-12 11:17 | Day surgery (SDC) | payer MEDICARE, BC ==
--- NOTE | 2023-09-11 08:15 | P.HPOR ---
History of Present Illness H&P Date: 09/11/23 Chief Complaint: Left knee pain Patient is a 72-year-old retired male who presents with progressive left knee pain for the past 2 years. He notes diffuse pain along with swelling and stiffness. He tried medications in addition to injections without much relief. He does have a history of left knee arthroscopy. He notes daily pain in addition to night symptoms. Review of Systems As per HPI Past Medical History Past Medical History: Cancer, Heart Failure, Hypertension, Osteoarthritis (OA) Additional Past Medical History / Comment(s): MYASTHENIA GRAVIS POST ANESTHESIA WHEN HE BACK SURGERY, NO RESIDUAL. HEADACHES FROM IG INFUSION. 2020 covid, bilateral lung collapsed in ICU FOR 4 WEEKS AT [facility]. 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 THYROID CANCER. GOUT History of Any Multi-Drug Resistant Organisms: None Reported Past Surgical History: Hernia Repair, Orthopedic Surgery Additional Past Surgical History / Comment(s): 03/21/23 left take hip arthroplasty 11/12/18 RIGHT SHOULDER. and left shoulder, right hand surgery, LUMBAR BACK SURGERY FUSION HAS 2 RODS AND CAGES, RIGHT AND LEFT KNEE ARTHROSCOPIC, RIGHT ING,HERNIA X2. PARTIAL THYROIDECTOMY, left hip replacement Past Anesthesia/Blood Transfusion Reactions: No Reported Reaction Additional Past Anesthesia/Blood Transfusion Reaction / Comment(s): MYASTHENIA GRAVIS POST LUMBAR SURGERY. Past Psychological History: Anxiety Additional Psychological History / Comment(s): CLAUSTROPHOBIC Smoking Status: Never smoker Past Alcohol Use History: None Reported Past Drug Use History: None Reported - Past Family History Mother Family Medical History: No Reported History Medications and Allergies Home Medications Medication Instructions Recorded Confirmed Type Furosemide [Lasix] 20 mg PO QAM PRN 11/12/15 09/08/23 History Potassium Chloride [Klor-Con 20] 20 meq PO HS 11/12/15 09/08/23 History Terazosin HCl [Hytrin] 10 mg PO HS 11/12/15 09/08/23 History Acetaminophen 325 - 650 mg PO Q6H PRN 10/09/18 09/08/23 History Calcium/Magnesium/Zinc 1 tab PO DAILY 10/09/18 09/08/23 History [Gctoica-Dqzzxofkk-Ttqo Tablet] Ivig 1 dose IV Q42D 10/09/18 09/08/23 History Metoprolol Tartrate [Lopressor] 25 mg pe PO HS 10/09/18 09/08/23 History predniSONE 20 mg PO PANIAGUA 10/09/18 09/08/23 History Cholecalciferol [Vitamin D3 (125 125 mcg PO DAILY 03/15/23 09/08/23 History Mcg = 5000 Iu)] SUMAtriptan succinate 50 mg PO DIRECTED PRN 03/15/23 09/08/23 History diphenhydrAMINE [Benadryl] 25 mg PO ONCE PRN 03/15/23 09/08/23 History mycophenolate mofetiL [Cellcept] 1,000 mg PO BID 03/15/23 09/08/23 History Allergies Allergy/AdvReac Type Severity Reaction Status Date / Time adhesive tape Allergy skin Verified 09/08/23 08:46 redness Physical Examination - Knee left Appearance: effusion Effusion grade: grade 2 Valgus alignment in stance: 10 degrees Tenderness with palpation: anterior, medial, lateral Pain: throughout ROM Gait: limping ROM: extension: -15 degrees ROM: flexion: 100 degrees Crepitus with motion: Yes Strength: extension: 5/5 Strength: flexion: 5/5 Meniscal tests: medial meniscal tests: positive, lateral meniscal tests: positive, medial joint line pain: positive, lateral joint line pain: positive Results Patient is a well-developed well-nourished male approximately 5 foot 10, 186 pounds of mesomorphic habitus. HEENT exam is nonfocal, neck supple. He has painless passive motion of the left hip. Straight leg raise is negative. He's tender about the medial and lateral joint line of left knee. Collaterals are stable, Kristian is negative, and Anil's is equivocal. He has genu valgum alignment. He has an antalgic gait pattern. His distal neurovascular appears intact in the left lower extremity. - Diagnostic results Knee x-ray: image reviewed (3 views of the left knee obtained in the office show severe lateral and patellofemoral compartment osteoarthrosis.) Assessment and Plan Assessment: Left knee severe lateral and patellofemoral compartment osteoarthrosis Plan: I talked to the patient at length regarding his condition along with treatment options. At this point he is quite symptomatic having pain and mechanical symptoms related to his left knee osteoarthrosis despite extensive previous conservative measures. After a thorough discussion he opts to proceed with surgery. We'll plan to proceed with left total knee arthroplasty. Risks and benefits were discussed at length in layman's terms. We will institute DVT prophylaxis postoperatively.
[~2023-09-12 11:17] MED LIST changes: -ACETAMINOPHEN TAB 500 MG TAB PO PRN; -MELOXICAM 7.5 MG TAB PO PRN
[2023-09-12] MEDS ORDERED: MIDAZOLAM 2 MG/2 ML VIAL IV PRN (11:42)
[2023-09-12] MEDS: IV FLUID CONTINUATION 1,000 ML IV ONE ×2 (12:00→14:54)
[2023-09-12] MEDS: LACTATED RINGERS 1,000 ML IV SCH (12:00)
[2023-09-12] MEDS: ACETAMINOPHEN TAB 500 MG TAB PO PRN (12:06)
[2023-09-12] MEDS: MELOXICAM 7.5 MG TAB PO PRN (12:07)
[2023-09-12] MEDS: ONDANSETRON 4 MG/2 ML VIAL IVP ONE (12:08)
[2023-09-12] MEDS: DEXAMETHASONE SOD PHOSPHATE 4 MG/ML 1 ML VIAL IV ONE (12:08)
[2023-09-12] MEDS: MIDAZOLAM 2 MG/2 ML VIAL IVP ONE ×2 (12:16→12:25)
[2023-09-12] MEDS: fentaNYL (PF) 50 MCG/1 ML VIAL IVP ONE (12:17)
[2023-09-12 12:20] LABS: Glucose,Whole Blood 96 mg/dL (70-110)
--- NOTE | 2023-09-12 12:59 | P.ANPRN ---
Procedure Note - Anesthesia - Nerve Block Performed Left Elizabethck Single Time Out Performed: Yes Date of Procedure: 09/12/23 Procedure Start Time: 12:16 Procedure Stop Time: 12:21 Location of Patient: PreOp Indication: Acute Post-Operative Pain, Analgesia, Requested by Surgeon Sedation Type: Sedate with meaningful contact maintained Preparation: Sterile Prep Position: Right Lateral Needle Types: Pajunk Needle Gauge: 21 Ultrasound used to visualize needle placement: Yes Ultrasound used to observe medication spread: Yes Injectate: 0.5% Ropivacaine (see comment for volume) ([id number]) Blood Aspirated: No Pain Paresthesia on Injection Noted: No Resistance on Injection: Normal Image Stored and Saved: Yes Events: Uneventful and Well Tolerated
--- NOTE | 2023-09-12 13:01 | P.ANPRN ---
Procedure Note - Anesthesia - Nerve Block Performed Left Adductor Canal Infusion Time Out Performed: Yes Date of Procedure: 09/12/23 Procedure Start Time: 12: Procedure Stop Time: : Location of Patient: PreOp Indication: Acute Post-Operative Pain, Analgesia, Requested by Surgeon Sedation Type: Sedate with meaningful contact maintained Preparation: Sterile Prep, Sterile Dressing Position: Supine Catheter: Indwelling Needle Types: On-Q Ultrasound used to visualize needle placement: Yes Ultrasound used to observe medication spread: Yes Injectate: 0.5% Ropivacaine (see comment for volume) (Ropiv [id number]) Blood Aspirated: No Pain Paresthesia on Injection Noted: No Resistance on Injection: Normal Image Stored and Saved: Yes Events: Uneventful and Well Tolerated
[2023-09-12] MEDS ORDERED: ROPIVACAINE 5 MG/ML 30 ML VIAL ONE (13:04)
[2023-09-12] MEDS ORDERED: DEXAMETHASONE SOD PHOSPHATE 4 MG/ML 1 ML VIAL ONE (13:04)
[2023-09-12] MEDS ORDERED: KETAMINE HCL IN 0.9 % NACL 50 MG/5 ML SYRINGE ONE (13:04)
[2023-09-12] MEDS ORDERED: MIDAZOLAM 2 MG/2 ML VIAL ONE (13:04)
[2023-09-12] MEDS ORDERED: PROPOFOL 10 MG/ML 20 ML VIAL IV ONE (13:04)
[2023-09-12] MEDS ORDERED: TRANEXAMIC 1,000 MG/100ML-NACL PREMIX BAG ONE (13:04)
[2023-09-12] MEDS ORDERED: ePHEDrine 50 MG/ML 1 ML VIAL ONE (13:04)
[2023-09-12] MEDS: ceFAZolin 3,000 MG in SODIUM CHLORIDE 0.9% IRRIGATIO 3,000 ML IRRIGATION ONE (13:42)
[2023-09-12] MEDS ORDERED: NALOXONE 0.4 MG/ML 1 ML VIAL IV PRN (14:59)
[2023-09-12] MEDS ORDERED: MAGNESIUM HYDROXIDE 2,400 MG/30 ML CUP PO PRN (14:59)
[2023-09-12] MEDS ORDERED: HYDROcodone/APAP 7.5-325MG 1 EACH TAB PO PRN (14:59)
[2023-09-12] MEDS ORDERED: HYDROmorphone 0.5 MG/0.5 ML SYRINGE IVP PRN (14:59)
--- NOTE | 2023-09-12 15:16 | P.OP ---
Date of Procedure: 09/12/23 Preoperative Diagnosis: Left knee severe tricompartmental osteoarthrosis/chondrocalcinosis Postoperative Diagnosis: Same Procedure(s) Performed: Left total knee arthroplastycementedposterior stabilized Implants: Depuy Attune size 8 cemented femoral component, size 7 cemented tibial component, 9 mm articular surface, 41 mm cemented patellar component. There is a posterior stabilized implant. Anesthesia: regional, spinal Surgeon: Luciano Grijalva Party Plan Demonstrator #1: Aristeo Weston Estimated Blood Loss (ml): 50 Pathology: none sent Condition: stable Disposition: PACU Indications for Procedure: The patient is a 73-year-old male who presents with progressive left knee pain secondary to osteoarthrosis and chondrocalcinosis despite conservative measures. A discussion of the risks and benefits of operative intervention versus continu ed conservative measures was made with the patient. He opted to proceed with surgery. Operative risks include infection, neurovascular injury, development of blood clots, possible fracture, possible component loosening/failure and possible need for subsequent procedures was discussed. Informed consent was obtained. Operative Findings: As below Description of Procedure: The patient was brought to the operating room, and after induction of spinal anesthesia the left lower extremity was prepped and draped in a normal fashion. The tourniquet was inflated to 270 mm marker. A longitudinal incision extending 3 finger breaths above the superior pole of patella extending to the medial aspect the tibial tubercle was then made. The skin and subcutaneous tissues were divided sharply. Electrocautery was used for hemostasis. A medial parapatellar arthrotomy was performed. The medial soft tissues to include the superficial and deep portions of the medial collateral ligament were elevated subperiosteally. The patella was everted. A portion of the retropatellar fat pad was excised sharply. The anterior cruciate ligament was sacrificed. Blunt retractors were placed. A starting hole was made in the distal femur 1 cm anterior to the posterior cruciate ligament origin. An intramedullary femoral guide was then inserted planning on 5 valgus distal cut with 9 mm distal resection. The cutting block was pinned in place. The distal cut was then made. The posterior referencing sizing guide was utilized. I felt size [] was most appropriate. 3 of external rotation was built into the system and verified off the trans-epicondylar axis and the posterior condyles. The cutting block was pinned in place. The anterior, posterior, and chamfer cuts then made. Bone fragments were removed. The intercondylar guide was placed and the notch cut was made with a sagittal saw. The bone block was removed in one fragment. The trial component was then placed. There is good anterior to posterior and medial to lateral fit. The distal peg holes were drilled. There was still a significant flexion contracture therefore an additional 4 mm of the distal femur was resected. The cutting blocks were utilized to finish the previous cuts. Attention was then paid towards preparing the proximal tibia. An extra medullary guide was utilized in line with the tibial shaft and second metatarsal distally. I planned on 2 mm resection from the medial compartment. The cutting block was pinned in place. The proximal tibial cut was then made. The bone was removed in one fragment. The remnants of the medial and lateral menisci were excised at the capsular junction with electrocautery. The tibia sized most appropriately at size 7. The trial femoral and tibial components were placed along with a 9 mm articular surface. I was able to obtain full flexion and extension with internal and external rotation. After several flexion and extension cycles, the tibial rotation was marked with electrocautery line with the medial one third of the tibial tubercle. Attention was then paid towards preparing the patella. A patella reamer was utilized taking stem to 14 mm of bone stock. A good flush cut was made. The patella sized most appropriately 41 mm. The peg holes were drilled. The trial components placed. I had good patellofemoral tracking with no hands technique. The trial components were then removed. The tibia was prepared in the appropriate rotation with appropriate drill and keel punch. The posterior osteophytes were removed with a curved osteotome. The flexion and extension gaps were checked and felt to be symmetric at 9 mm. A trial components were then removed. The bony surfaces were prepared with pulsatile lavage and dried. The tibial component was then cemented place was fully seated. Excess cement was removed. The femoral component cemented place and was fully seated. Excess cement was removed. The trial 9 mm articular surface was placed and the knee was put in full extension. The patella component was cemented place. After the cement had sufficiently hardened, the knee was again taken through a range of motion. Again I was able to obtain full flexion and extension with varus and valgus stress. The trial 9 mm articular surface was removed and the final one inserted. This was fully seated. Care was taken to avoid any soft tissue interposition. Pulsatile lavage was again utilized. The medial parapatellar arthrotomy was closed with #2 Ethibond suture. The tourniquet was deflated with approximately 60 minutes total tourniquet time. Final hemostasis was obtained with the cautery. There was minimal bleeding therefore a deep drain was not placed. The subcutaneous tissues were reapproximated with interrupted 2-0 Vicryl sutures. The skin was reapproximated with 3-0 subcuticular strata fix suture. Skin tape and adhesive was applied. A sterile dressing was applied. The patient was awoken from sedation and transferred to recovery room in good condition. Blood loss was estimated at 50 mL. No complications were incurred. Sponge and needle counts were correct at the end of the case. Aristeo CORTEZ assisted during the major components of this case to include exposure, bone resection, implantation, and closure.
--- NOTE | 2023-09-12 15:31 | XR ---
EXAMINATION TYPE: XR knee limited LT DATE OF EXAM: 09/12/2023 COMPARISON: NONE TECHNIQUE: Two views submitted HISTORY: Post op FINDINGS: There is a prosthetic knee in near anatomic alignment. There is soft tissue edema and soft tissue a ir\emphysema consistent with recent surgery. IMPRESSION: 1. Postoperative change.
[2023-09-12] MEDS: HYDROmorphone 0.5 MG/0.5 ML SYRINGE IVP PRN (16:24)
[2023-09-12] MEDS: ROPIVACAINE 1,100 MG, SODIUM CHLORIDE 0.9% 500 ML 330 ML, EMPTY PAIN BALL 1 EACH MISCELLANE PRN (17:12)
[2023-09-12] MEDS ORDERED: FUROSEMIDE 20 MG TAB PO PRN (18:56)
--- NOTE | 2023-09-12 19:45 | P.CONS ---
History of Present Illness - Reason for Consult Consult date: 09/12/23 Medical management Requesting physician: Luciano Grijalva - Chief Complaint Left knee surgery - History of Present Illness - Chief Complaint Left hip surgery - History of Present Illness This is a pleasant 73-year-old patient who follows with Dr. Aubrey Grijalva. 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 previous lumbar surgery. Left total knee arthroplasty. No nausea vomiting. Pain control in place. On ropivacaine pump. at the bedside. Review of systems: GEN.: Tired EYES: None HEENT: Deaf in the right ear NECK: None RESPIRATORY: None CARDIOVASCULAR: None GASTROINTESTINAL: None GENITOURINARY: None MUSCULOSKELETAL: Chronic low back pain, left knee pain LYMPHATICS: None HEMATOLOGICAL: None PSYCHIATRY: None NEUROLOGICAL: None Social history: No smoking. No alcohol. Physical examination: VITAL SIGNS: [97.5, 56, 18, 153 x 79, 97% room air GENERAL: JOANEN 27.4, reclining in bed. EYES: Pupils equal. Conjunctiva terese l. HEENT: External appearance of nose and ears normal, oral cavity grossly normal. NECK: JVD not raised; masses not palpable. HEART: First and second heart sounds are normal; no edema. LUNGS: Respiratory rate normal; clear to auscultation. ABDOMEN: Soft, nontender, liver spleen not palpable, no masses palpable. PSYCH: Alert and oriented x3; mood and affect terese l. MUSCULOSKELETAL:No Clubbing/cyanosis;muscles-grossly intact. Dressing of the left knee. OA NEUROLOGICAL: Cranial nerves grossly intact; no facial asymmetry, power and sensation grossly intact. LYMPHATICS: No lymph nodes palpable in the axilla and neck INVESTIGATIONS, reviewed in the clinical context: September 08, 2023: White count 6.7 hemoglobin 15.3 platelets 251 sodium 143 potassium 4.4 creatinine 1.2 Assessment and plan: -Left total knee arthroplasty IV cefazolin for infection prophylaxis. Ropivacaine pain pump. Grannis as needed. -Myasthenia gravis. 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 Hytrin. -Full code Care was discussed with the patient and at the bedside. Questions answered. Thank you Dr. Grijalva Past Medical History Past Medical History: Cancer, Heart Failure, Hypertension, Osteoarthritis (OA) Additional Past Medical History / Comment(s): MYASTHENIA GRAVIS POST ANESTHESIA WHEN HE BACK SURGERY, NO RESIDUAL. HEADACHES FROM IG INFUSION. 2020 covid, bilateral lung collapsed in ICU FOR 4 WEEKS AT [facility]. 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 THYROID CANCER. GOUT History of Any Multi-Drug Resistant Organisms: None Reported Past Surgical History: Hernia Repair, Orthopedic Surgery Additional Past Surgical History / Comment(s): 03/21/23 left take hip arthroplasty 11/12/18 RIGHT SHOULDER. and left shoulder, right hand surgery, LUMBAR BACK SURGERY FUSION HAS 2 RODS AND CAGES, RIGHT AND LEFT KNEE ARTHROSCOPIC, RIGHT ING,HERNIA X2. PARTIAL THYROIDECTOMY, left hip replacement Past Anesthesia/Blood Transfusion Reactions: No Reported Reaction Additional Past Anesthesia/Blood Transfusion Reaction / Comm: MYASTHENIA GRAVIS POST LUMBAR SURGERY. Past Psychological History: Anxiety Additional Psychological History / Comment(s): CLAUSTROPHOBIC Smoking Status: Never smoker Past Alcohol Use History: None Reported Past Drug Use History: None Reported - Past Family History Mother Family Medical History: No Reported History Medications and Allergies Home Medications Medication Instructions Recorded Confirmed Type Furosemide [Lasix] 20 mg PO QAM PRN 11/12/15 09/08/23 History Potassium Chloride [Klor-Con 20] 20 meq PO HS 11/12/15 09/08/23 History Terazosin HCl [Hytrin] 10 mg PO HS 11/12/15 09/08/23 History Acetaminophen 325 - 650 mg PO Q6H PRN 10/09/18 09/08/23 History Calcium/Magnesium/Zinc 1 tab PO DAILY 10/09/18 09/08/23 History [Vdfdboe-Mlsjettow-Tauj Tablet] Ivig 1 dose IV Q42D 10/09/18 09/08/23 History Metoprolol Tartrate [Lopressor] 25 mg pe PO HS 10/09/18 09/08/23 History predniSONE 20 mg PO PANIAGUA 10/09/18 09/08/23 History Cholecalciferol [Vitamin D3 (125 125 mcg PO DAILY 03/15/23 09/08/23 History Mcg = 5000 Iu)] SUMAtriptan succinate 50 mg PO DIRECTED PRN 03/15/23 09/08/23 History diphenhydrAMINE [Benadryl] 25 mg PO ONCE PRN 03/15/23 09/08/23 History mycophenolate mofetiL [Cellcept] 1,000 mg PO BID 03/15/23 09/08/23 History Allergies Allergy/AdvReac Type Severity Reaction Status Date / Time adhesive tape Allergy skin Verified 09/12/23 11:45 redness Physical Exam Vitals: Vital Signs Temp Pulse Pulse Resp BP Pulse Ox 09/12/23 17:32 97.5 F L 56 L 18 153/79 97 09/12/23 17:11 59 L 20 151/79 95 09/12/23 16:45 56 L 18 139/76 99 09/12/23 16:15 53 L 18 134/87 99 09/12/23 16:00 54 L 18 139/72 98 09/12/23 15:45 56 L 15 139/72 98 09/12/23 15:30 56 L 20 130/63 96 09/12/23 15:15 64 18 105/61 91 L 09/12/23 15:12 97.1 F L 60 16 115/66 92 L 09/12/23 12:35 57 L 16 125/74 97 09/12/23 11:50 97.1 F L 60 16 138/76 97 Intake and Output 09/12/23 09/12/23 09/12/23 06:59 14:59 22:59 Intake Total 1151 520 Output Total 50 Balance 1101 520 Intake: IV 1151 400 Oral 120 Output: Estimated Blood Loss 50 Other: # Voids 1 Weight 86.7 kg 86.7 kg
[2023-09-12] MEDS ORDERED: ACETAMINOPHEN TAB 325 MG TAB PO PRN (20:09)
[2023-09-12] MEDS: METOPROLOL TARTRATE 25 MG TAB PO SCH (20:22)
[2023-09-12] MEDS: HYDROcodone/APAP 5-325MG 1 EACH TAB PO PRN (20:22)
[2023-09-12] MEDS: POTASSIUM CHLORIDE ER 20 MEQ TAB.ER PO SCH (20:22)
[2023-09-12] MEDS: SENNOSIDES-DOCUSATE SODIUM 1 EACH TAB PO SCH (20:24)
[2023-09-12] MEDS: DOXAZOSIN 4 MG TAB PO SCH (20:26)
[2023-09-12] MEDS: ONDANSETRON 4 MG/2 ML VIAL IVP PRN (20:34)
[2023-09-13] MEDS: HYDROmorphone 0.5 MG/0.5 ML SYRINGE IVP PRN (01:23)
[2023-09-13 08:41] VITALS: BP 127/68; PULSE 62; RESP 18; TEMP 97.6
[2023-09-13] MEDS: CHOLECALCIFEROL 125 MCG (5000 IU) TABLET PO SCH (08:53)
[2023-09-13] MEDS: RIVAROXABAN 10 MG TAB PO SCH (08:53)
[2023-09-13 09:06] LABS: Basophils # (A) 0.01 X 10*3/uL (0.00-0.10); Basophils % (A) 0.1 %; Eosinophils # (A) 0 X 10*3/uL (0.04-0.35); Eosinophils % (A) 0 %; HCT 40.1 % (39.6-50.0); HGB 13.5 g/dL (13.0-17.0); Lymphocytes # (A) 0.63 X 10*3/uL (0.90-5.00); Lymphocytes % (A) 5.9 %; MCH 30.2 pg (27.0-32.0); MCHC 33.7 g/dL (32.0-37.0); MCV 89.7 FL (80.0-97.0); Monocytes % (A) 5.7 %; NRBC Per 100 WBC 0 X 10*3/uL (0.00-0.01); Neutrophils # (A) 9.33 X 10*3/uL (1.80-7.70); Neutrophils % (A) 87.9 %; Platelet Count 272 X 10*3/uL (140-440); RBC 4.47 X 10*6/uL (4.40-5.60); RDW 13.9 % (11.5-14.5); WBC 10.61 X 10*3/uL (4.50-10.00)
[2023-09-13] MEDS ORDERED: traMADol 50 MG TAB PO PRN (10:04)
--- NOTE | 2023-09-13 10:30 | P.DS ---
Providers Date of admission: 09/12/2023 Expected date of discharge: 09/13/23 Attending physician: Luciano Grijalva Consults: 09/12/23 14:59 Consult Physician Routine Consulting Provider: Floyd Camarillo Consult Reason/Comments: medical management s/p left total knee arthroplasty Do you want consulting provider notified?: Yes Primary care physician: Aubrey Grijalva Hospital Course: Date of admission: 09/12/2023 Date of discharge: 09/13/2023 Admission diagnosis: Left knee osteoarthritis Discharge diagnosis: Same Attending physician: Dr. Grijalva Surgical procedures: Left total knee arthroplasty Brief history: Patient is a 73-year-old male with a history of progressive primary left knee osteoarthritis. At this point patient has failed conservative treatment measures and has opted to proceed with a elective left total knee arthroplasty. Hospital course: Details of patient's surgery can be found in operative report. Patient tolerated the procedure well and was subsequently transported to orthopedic floor. Patient's orthopeidc and medical care was provided daily. Patient had daily laboratory tests performed for evaluation of overall blood counts. Patient had daily physical therapy to include strengthening range of motion as well as education with walker ambulation. Patient was treated with Xarelto for their postoperative DVT prophylaxis during their inpatient stay. Patient was noted to have a relatively uneventful postoperative course. Patient reported satisfactory pain control with oral pain medications by postoperative day 1. Patient showed satisfactory progress with physical therapy. Patient moved steadily through the program and had no difficulty meeting the goals by postoperative day 1. Given patient's otherwise satisfactory course and having met physical therapy goals, plan is to discharge patient home with health services on postoperative day1. Discharge condition/disposition: Patient will be discharged home with health services in stable condition. Discharge medications: Instructions are given on resumption of patient's normal daily medications per primary care recommendation, in addition patient will be prescribed Tylenol 3; senna; Eliquis 2.5 mg twice daily x 2 weeks. Discharge instructions: 1. Wound care and infection precautions, keep incision dry and covered while showering, no lotions, creams, moisturizers. No soaking, tubs, pools, hottubs. Do not scrub over the incision. 2. Weight-bear as tolerated with walker / cane until follow-up. 3. Ice and elevate when necessary. Do not exceed 20 minutes per hour with ice pack. 4. Utilize compression sleeve until seen at first follow up appointment. 5. Visiting nursing care. 6. Home physical therapy including home CPM. 7. Pain meds and anticoagulants per prescription. 8. Pain medication has potential to cause constipation. Increase oral fluid and fiber intake. Contact primary care provider if you have not had a bowel movement within 48 hours after discharge 9. No anti-inflammatory medication until discussed at first post operative visit, this including Motrin, Aleve, Mobic, Diclofenac. 10. Follow up in office at 2 weeks postop with Duarte Rodriguez PA-C / Aristeo Weston PA-C 11. Follow up with your primary care doctor 7-10 days after discharge. 12. Contact [facility] with any questions, . Assessment: Left knee osteoarthritis Procedures: Left total knee arthroplasty Patient Condition at Discharge: Good Plan - Discharge Summary Discharge Rx Participant: No New Discharge Prescriptions: New Apixaban [Eliquis] 2.5 mg PO BID #60 tab Acetaminophen-Codeine 300-30mg [Tylenol w/codeine #3] 1 - 2 tab PO Q4-6H PRN #36 tablet PRN Reason: Pain Sennosides/Docusate Sodium [Senna Plus 8.6-50 mg Softgel] 1 each PO DAILY #20 capsule Ondansetron [Zofran] 4 mg PO Q8HR PRN #12 tab PRN Reason: Nausea No Action Potassium Chloride [Klor-Con 20] 20 meq PO HS Terazosin HCl [Hytrin] 10 mg PO HS Furosemide [Lasix] 20 mg PO QAM PRN PRN Reason: LEG SWELLING Acetaminophen 325 - 650 mg PO Q6H PRN PRN Reason: Pain Calcium/Magnesium/Zinc [Uyhneey-Parlifexu-Fsvz Tablet] 1 tab PO DAILY Metoprolol Tartrate [Lopressor] 25 mg pe PO HS predniSONE 20 mg PO PANIAGUA Ivig 1 dose IV Q42D Cholecalciferol [Vitamin D3 (125 Mcg = 5000 Iu)] 125 mcg PO DAILY diphenhydrAMINE [Benadryl] 25 mg PO ONCE PRN PRN Reason: prior to IVIG infusion mycophenolate mofetiL [Cellcept] 1,000 mg PO BID SUMAtriptan succinate 50 mg PO DIRECTED PRN PRN Reason: migraines Discharge Medication List Furosemide [Lasix] 20 mg PO QAM PRN 11/12/15 [History] Potassium Chloride [Klor-Con 20] 20 meq PO HS 11/12/15 [History] Terazosin HCl [Hytrin] 10 mg PO HS 11/12/15 [History] Acetaminophen 325 - 650 mg PO Q6H PRN 10/09/18 [History] Calcium/Magnesium/Zinc [Zdhfkvv-Djioiswsa-Uqqv Tablet] 1 tab PO DAILY 10/09/18 [History] Ivig 1 dose IV Q42D 10/09/18 [History] Metoprolol Tartrate [Lopressor] 25 mg pe PO HS 10/09/18 [History] predniSONE 20 mg PO PANIAGUA 10/09/18 [History] Cholecalciferol [Vitamin D3 (125 Mcg = 5000 Iu)] 125 mcg PO DAILY 03/15/23 [History] SUMAtriptan succinate 50 mg PO DIRECTED PRN 03/15/23 [History] diphenhydrAMINE [Benadryl] 25 mg PO ONCE PRN 03/15/23 [History] mycophenolate mofetiL [Cellcept] 1,000 mg PO BID 03/15/23 [History] Acetaminophen-Codeine 300-30mg [Tylenol w/codeine #3] 1 - 2 tab PO Q4-6H PRN #36 tablet 09/13/23 [Rx] Apixaban [Eliquis] 2.5 mg PO BID #60 tab 09/13/23 [Rx] Ondansetron [Zofran] 4 mg PO Q8HR PRN #12 tab 09/13/23 [Rx] Sennosides/Docusate Sodium [Senna Plus 8.6-50 mg Softgel] 1 each PO DAILY #20 capsule 09/13/23 [Rx] Follow up Appointment(s)/Referral(s): Aristeo Weston, KAREN [PHYSICIAN DELIVERY TABLE OPERATOR] - 09/28/23 10:40 am [facility] [NON-STAFF] - 1-2 Days ([facility] will call you to schedule your in home nursing and physical therapy visits. ) [facility] [NON-STAFF] - As Needed (*Please call [facility] once home to arrange delivery of the Continuous Passive Motion (CPM) machine. ) Patient Instructions/Handouts: Knee Replacement (DC), Knee Replacement (GEN) Activity/Diet/Wound Care/Special Instructions: Orthopedic Discharge Instructions: 1. Wound care and infection precautions, keep incision dry and covered while showering, no lotions, creams, moisturizers. No soaking, pools, hot tubs. Do not scrub over incision. 2. Weight-bear as tolerated with walker / cane until follow-up. 3. Ice and elevate when necessary. Do not exceed 20 minutes per hour with ice pack. 4. Utilize compression sleeve until seen at first follow up appointment. 5. Pain meds and anticoagulants per prescription. 6. Pain medication has potential to cause constipation. Increase oral fluid and fiber intake. Contact primary care provider if you have not had a bowel movement within 48 hours after discharge. 7. No anti-inflammatory medication until discussed at first post operative visit, this including Motrin, Aleve, Mobic, Diclofenac. 8. Follow up in office at 2 weeks postop with Duarte Rodriguez PA-C / Aristeo Weston PA-C 9. Follow up with your primary care doctor 7-10 days after discharge. 10. Contact [facility] with any questions, . Keep incision clean, dry, intact. While showering, cover fusion tape with Saran wrap. Keep fusion tape on until follow-up appointment in office in 2 weeks. Discharge Disposition: HOME WITH HOME HEALTH SERVICES
[2023-09-13] MEDS: traMADol 50 MG TAB PO PRN (13:01)
--- NOTE | 2023-09-13 13:10 | P.PN ---
Subjective Progress Note Date: 09/13/23 Principal diagnosis: Left knee osteoarthritis Patient was seen at bedside this morning lying in; position with dressing present over left knee. Patient says he did do well with therapy this morning walked out of the hallway and up and down stairs. Patient says he has urinated several times since surgery yesterday without issue. Patient says he has been passing gas. Patient says he has not had a bowel yet. Patient says she does have a walker and cane at home to aid in ambulation. Patient is looking forward to going home later today. Patient denies any other issues at this time. Patient denies chest pain, fever, shortness of breath, nausea, vomiting, change in vision, loss of bowel/bladder control. Objective - Vital Signs Vital signs: Vital Signs Temp 97.6 F 09/13/23 07:06 Pulse 62 09/13/23 07:06 Resp 18 09/13/23 07:06 BP 127/68 09/13/23 07:06 Pulse Ox 95 09/13/23 07:06 FiO2 Intake & Output 09/12/23 09/13/23 09/13/23 18:59 06:59 18:59 Intake Total 1671 480 Output Total 50 Balance 1621 480 Weight 86.7 kg Intake: IV 1551 Oral 120 480 Output: Estimated Blood Loss 50 Other: # Voids 1 1 - Exam Left knee: Incision is clean, dry, and intact. The exofin fusion tape is in good condition. There is minimal soft tissue swelling and ecchymosis surrounding the medial and lateral aspects of the incision. Calf is soft, no tenderness with palpation. Plantar flexion, dorsiflexion, EHL, FHL are intact. Sensory exam to light touch throughout the extremity is intact, dorsal pedis pulses 2+. - Labs CBC & Chem 7: 09/13/23 06:00 Labs: Abnormal Lab Results - Last 24 Hours (Table) 09/13/23 Range/Units 06:00 WBC 10.61 H (4.50-10.00) X 10*3/uL Neutrophils # 9.33 H (1.80-7.70) X 10*3/uL Lymphocytes # 0.63 L (0.90-5.00) X 10*3/uL Eosinophils # 0 L (0.04-0.35) X 10*3/uL Assessment and Plan Assessment: 1. Left knee osteoarthritis -Postop day 1 status post left total knee arthroplasty Plan: 1. Left knee osteoarthritis -left total knee arthroplasty performed yesterday, 09/12/2023. Patient stable bedside this morning. Patient did do well with therapy this morning. Patient does have a walker for home. Discharge home today with health services. 2. Appreciate medical management 3. Pain management -Elsie; Dilaudid only as necessary 4. DVT prophylaxis -Xarelto in hospital. Going home with Eliquis 2.5 mg twice daily x 2 weeks 5. GI prophylaxis -senna 6. PT/OT -weightbearing as tolerated with walker as needed 7. Encourage incentive spirometer use 8. Discharge planning -discharge home to day with health services Time with Patient: Less than 30
--- NOTE | 2023-09-13 15:47 | P.PN ---
Progress Note - Text Progress Note Date: 09/13/23 - Chief Complaint Left knee surgery - History of Present Illness - Chief Complaint Left hip surgery - History of Present Illness This is a pleasant 73-year-old patient who follows with Dr. Aubrey Grijalva. 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 previous lumbar surgery. Left total knee arthroplasty. No nausea vomiting. Pain control in place. On ropivacaine pump. at the bedside. September 12: Patient doing well. Some pain present. Otherwise tolerating diet. Did ambulate. No dizziness/lightheadedness. Questions answered. Patient neurologist did not change any of his medications for the surgery for myasthenia gravis. Medications reviewed Social history: No smoking. No alcohol. Physical examination: VITAL SIGNS: 97.6, 62, 18, 127 x 68, 95% room air GENERAL: JOANNE 27.4, reclining in bed. EYES: Pupils equal. Conjunctiva terese l. HEENT: External appearance of nose and ears normal, oral cavity grossly normal. NECK: JVD not raised; masses not palpable. HEART: First and second heart sounds are normal; no edema. LUNGS: Respiratory rate normal; clear to auscultation. ABDOMEN: Soft, nontender, liver spleen not palpable, no masses palpable. PSYCH: Alert and oriented x3; mood and affect terese l. MUSCULOSKELETAL:No Clubbing/cyanosis;muscles-grossly intact. Dressing of the left knee. OA INVESTIGATIONS, reviewed in the clinical context: September 12: White count 10.6 hemoglobin 13.5 platelets 272 September 08, 2023: White count 6.7 hemoglobin 15.3 platelets 251 sodium 143 potassium 4.4 creatinine 1.2 Assessment and plan: -Left total knee arthroplasty IV cefazolin for infection prophylaxis. Ropivacaine pain pump. Redgranite as needed. -Myasthenia gravis. 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 Hytrin. -Full code Stable. Doing well. Follow-up with PCP after discharge. Thank you Dr. Grijalva Past Medical History Past Medical History: Cancer, Heart Failure, Hypertension, Osteoarthritis (OA) Additional Past Medical History / Comment(s): MYASTHENIA GRAVIS POST ANESTHESIA WHEN HE BACK SURGERY, NO RESIDUAL. HEADACHES FROM IG INFUSION. 2020 covid, bilateral lung collapsed in ICU FOR 4 WEEKS AT [facility]. 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 THYROID CANCER. GOUT History of Any Multi-Drug Resistant Organisms: None Reported Past Surgical History: Hernia Repair, Orthopedic Surgery Additional Past Surgical History / Comment(s): 03/21/23 left take hip arthroplasty 11/12/18 RIGHT SHOULDER. and left shoulder, right hand surgery, LUMBAR BACK SURGERY FUSION HAS 2 RODS AND CAGES, RIGHT AND LEFT KNEE ARTHROSCOPIC, RIGHT ING,HERNIA X2. PARTIAL THYROIDECTOMY, left hip replacement Past Anesthesia/Blood Transfusion Reactions: No Reported Reaction Additional Past Anesthesia/Blood Transfusion Reaction / Comm: MYASTHENIA GRAVIS POST LUMBAR SURGERY. Past Psychological History: Anxiety Additional Psychological History / Comment(s): CLAUSTROPHOBIC Smoking Status: Never smoker Past Alcohol Use History: None Reported Past Drug Use History: None Reported
--- NOTE | 2023-09-13 19:10 | P.PN ---
Progress Note - Text 09/13/23 622am 73-year-old male status post total knee replacement. Patient has an On-Q pump for postop pain control with a solution running at 86 with a VAS of 3. Dressing clean dry and intact. To continue On-Q pump infusion
[2023-09-17] MEDS ORDERED: predniSONE 20 MG TAB PO SCH (18:56)
== END 2023-09-13 14:40 | disposition home health service (06) ==
LOC: OR 11:17 → 4SSUR 15:08 → OR 09-13 14:40
PROVIDERS: ATTEND Orthopaedic Surgery
DX: M17.12 Unilateral primary osteoarthritis, left knee (principal); I11.0 Hypertensive heart disease with heart failure; I50.9 Heart failure, unspecified; G89.29 Other chronic pain; G89.18 Other acute postprocedural pain; G70.00 Myasthenia gravis without (acute) exacerbation; M10.9 Gout, unspecified; Z79.01 Long term (current) use of anticoagulants; Z79.899 Other long term (current) drug therapy; Z85.850 Personal history of malignant neoplasm of thyroid; Z86.16 Personal history of COVID-19
CPT/HCPCS: 97161; 64999; 64448; 85025; 73560; 27447; C1713 ×2; C1776; C1751; J2250; J1100; J0690 ×3; J2405 ×2; J7517 ×2; J2795; J2704; J1170 ×2; J3010

== ENCOUNTER → 2024-05-31 | Outpatient (CLI) | payer MEDICARE, BC | END | disposition home or self-care (01) | LOC: LABWHC1 13:11 | PROVIDERS: ATTEND Orthopaedic Surgery | DX: Z01.812 Encounter for preprocedural laboratory examination (principal); Z22.322 Carrier or suspected carrier of Methicillin resistant Staphylococcus aureus; M16.11 Unilateral primary osteoarthritis, right hip | CPT/HCPCS: 36415; 86850; 86900; 86901; 87070 ==

== ENCOUNTER 2024-06-07 06:24 | Day surgery (SDC) | payer MEDICARE, BC ==
--- NOTE | 2024-06-06 08:47 | P.HPOR ---
History of Present Illness H&P Date: 06/06/24 Chief Complaint: Right hip pain The patient is a 73-year-old male who presents with progressive right hip pain for the past year worsening over the past couple months. He notes groin and thigh pain with ambulation. He is having night symptoms. He is tried medications without much relief. He notes he has been limping. Review of Systems Per HPI Past Medical History Past Medical History: Cancer, Heart Failure, Hypertension, Osteoarthritis (OA) Additional Past Medical History / Comment(s): MYASTHENIA GRAVIS POST ANESTHESIA WHEN HE BACK SURGERY, NO RESIDUAL. HEADACHES FROM IG INFUSION. 2020 covid, bilateral lung collapsed in ICU FOR 4 WEEKS AT [facility]. 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 THYROID CANCER. GOUT History of Any Multi-Drug Resistant Organisms: None Reported Past Surgical History: Back Surgery, Hernia Repair, Joint Replacement, Orthopedic Surgery Additional Past Surgical History / Comment(s): 03/21/23 left take hip arthroplasty 11/12/18 RIGHT SHOULDER. and left shoulder, right hand surgery, LUMBAR BACK SURGERY FUSION HAS 2 RODS AND CAGES, RIGHT AND LEFT KNEE ARTHROSCOPIC, RIGHT ING,HERNIA X2. PARTIAL THYROIDECTOMY, left hip replacement left knee replaced Past Anesthesia/Blood Transfusion Reactions: No Reported Reaction Additional Past Anesthesia/Blood Transfusion Reaction / Comment(s): MYASTHENIA GRAVIS POST LUMBAR SURGERY. Smoking Status: Never smoker - Past Family History Mother Family Medical History: No Reported History Medications and Allergies Home Medications Medication Instructions Recorded Confirmed Type Potassium Chloride [Klor-Con 20] 20 meq PO HS 11/12/15 05/31/24 History Terazosin HCl [Hytrin] 10 mg PO HS 11/12/15 05/31/24 History Calcium/Magnesium/Zinc 1 tab PO DAILY 10/09/18 05/31/24 History [Mzuvqpa-Tismkltsd-Pptt Tablet] Ivig 1 dose IV Q42D 10/09/18 05/31/24 History Metoprolol Tartrate [Lopressor] 25 mg pe PO HS 10/09/18 05/31/24 History predniSONE 20 mg PO PANIAGUA 10/09/18 05/31/24 History Cholecalciferol [Vitamin D3 (125 50 mcg PO DAILY 03/15/23 05/31/24 History Mcg = 5000 Iu)] mycophenolate mofetiL [Cellcept] 1,000 mg PO BID 03/15/23 05/31/24 History Allergies Allergy/AdvReac Type Severity Reaction Status Date / Time adhesive tape Allergy skin Verified 05/31/24 15:48 redness Physical Examination - Hip right Gait: antalgic Tenderness with palpation: anterior Pain with motion: internal rotation and hip flexion ROM: flexion: 80 degrees ROM: internal rotation: 0 degrees (Pain) ROM: external rotation: 60 degrees Strength: extension: 5/5 Strength: flexion: 5/5 Strength: abduction: 5/5 Tests: impingement tests: positive Results The patient is a well-developed well-nourished male approximately 5 foot 10, 192 pounds of mesomorphic habitus. HEENT exam is nonfocal, neck is supple. He has painful passive motion of the right hip. Straight leg raise is negative. He does have some shortening of the right lower extremity compared to left. His distal neurovascular exam appears intact in the right lower extremity. - Diagnostic results Hip x-ray: image reviewed (X-rays of the right hip obtained in the office show severe degenerative joint disease with uhlu-km-iscg changes and subchondral sclerosis.) Assessment and Plan Assessment: Right hip severe osteoarthrosis Plan: I talked to the patient at length regarding his condition along with treatment options. At this point he is quite symptomatic and limited having both pain and stiffness related to his right hip osteoarthrosis despite conservative measures. After thorough discussion he opts to proceed with surgery. We will plan to proceed with right total hip arthroplasty utilizing an anterior approach. Risks and benefits were discussed at length in layman's terms. We will institute DVT prophylaxis postoperatively.
[2024-06-07] MEDS ORDERED: HYDROmorphone 0.5 MG/0.5 ML SYRINGE IVP PRN ×2 (07:00→10:21)
[2024-06-07 07:17] LABS: Glucose,Whole Blood 92 mg/dL (70-110)
[2024-06-07] MEDS: LACTATED RINGERS 1,000 ML IV SCH (07:19)
[2024-06-07] MEDS: IV FLUID CONTINUATION 1,000 ML IV ONE ×2 (07:19)
[2024-06-07] MEDS: MELOXICAM 7.5 MG TAB PO PRN (07:20)
[2024-06-07] MEDS: ACETAMINOPHEN TAB 500 MG TAB PO PRN (07:20)
[2024-06-07] MEDS: ONDANSETRON 4 MG/2 ML VIAL IVP ONE (07:21)
[2024-06-07 07:26] LABS: INR 1.1 (<1.2); Prothrombin Time 11.7 sec (10.0-12.5)
[2024-06-07] MEDS: DEXAMETHASONE SOD PHOSPHATE 4 MG/ML 1 ML VIAL IV ONE (07:44)
[2024-06-07] MEDS: MIDAZOLAM 2 MG/2 ML VIAL IV PRN (07:55)
[2024-06-07] MEDS: fentaNYL (PF) 50 MCG/ML 2 ML AMP IVP ONE (07:55)
[2024-06-07] MEDS: MIDAZOLAM 2 MG/2 ML VIAL IV ONE (07:58)
[2024-06-07] MEDS ORDERED: DEXAMETHASONE SOD PHOSPHATE 4 MG/ML 1 ML VIAL ONE (08:40)
[2024-06-07] MEDS ORDERED: ePHEDrine 50 MG/ML 1 ML VIAL ONE (08:40)
[2024-06-07] MEDS ORDERED: WATER FOR INJECTION, STERILE 10 ML VIAL IV ONE (08:40)
[2024-06-07] MEDS ORDERED: KETAMINE HCL IN 0.9 % NACL 50 MG/5 ML SYRINGE ONE (08:40)
[2024-06-07] MEDS ORDERED: GLYCOPYRROLATE 0.2 MG/ML 2 ML VIAL ONE (08:40)
[2024-06-07] MEDS ORDERED: fentaNYL (PF) 50 MCG/ML 2 ML AMP ONE (08:40)
[2024-06-07] MEDS ORDERED: ROPIVACAINE 5 MG/ML 30 ML VIAL ONE (08:40)
[2024-06-07] MEDS ORDERED: PROPOFOL 10 MG/ML 20 ML VIAL IV ONE (08:40)
[2024-06-07] MEDS ORDERED: MIDAZOLAM 2 MG/2 ML VIAL ONE (08:40)
[2024-06-07] MEDS: ceFAZolin 1,000 MG in SODIUM CHLORIDE 0.9% 1,000 ML IRRIGATION ONE (09:17)
[2024-06-07] MEDS: LACTATED RINGERS 1,000 ML IV ONE (10:08)
[2024-06-07] MEDS ORDERED: traMADol 50 MG TAB PO PRN (10:21)
[2024-06-07] MEDS ORDERED: NALOXONE 0.4 MG/ML 1 ML VIAL IV PRN (10:21)
[2024-06-07] MEDS ORDERED: MAGNESIUM HYDROXIDE 2,400 MG/30 ML CUP PO PRN (10:21)
[2024-06-07] MEDS ORDERED: Acetaminophen-Codeine 300-30mg TAB PO PRN (10:21)
--- NOTE | 2024-06-07 10:40 | XR ---
EXAMINATION TYPE: XR Hip Limited RT, FL guidance operating room Intraoperative/procedural fluoroscopi c services were provided. CLINICAL INDICATION:Male, 73 years old with history of Rt Hip-Ant; , PHH FINDINGS: Fluoroscopic image demonstrating right hip arthroplasty. No radiographic evidence for complication. Total fluoroscopy time is 21.6 seconds. DAP: 1.0853 Gycm2 Please see the operative/procedural note for further details. [facility], , 06/07/2024 10:38 AM
--- NOTE | 2024-06-07 10:41 | P.OP ---
Date of Procedure: 06/07/24 Preoperative Diagnosis: Right hip severe osteoarthrosis Postoperative Diagnosis: Same Procedure(s) Performed: Right total hip arthroplastyanterior approachpress-fit Implants: DePuy Corail l size [id number] degree collared press-fit femoral stem, 46/28+1.5 bipolar femoral head, 58 mm [place] acetabular shell with metal liner. Anesthesia: spinal Surgeon: Luciano Grijalva Liquid Sugar Melter #1: Aristeo Weston Estimated Blood Loss (ml): 150 Pathology: none sent Condition: stable Disposition: PACU Indications for Procedure: The patient is a 73-year-old male who presents with progressive right hip pain secondary to osteoarthrosis despite conservative measures. A discussion of the risks and benefits of operative intervention versus continued conservative measures was made with the patient. He opted to proceed with surgery. Opera tive risks to include infection, neurovascular 3, development of blood clots, fracture, leg length discrepancy, possible instability, possible component loosening/failure and possible need for subsequent procedures was discussed. Informed consent was obtained. Operative Findings: As below Description of Procedure: The patient was brought to the operating room, and after induction of spinal anesthesia was placed supine on the Nehal table. Positioning was checked with fluoroscopy. The right hip was then prepped and draped in a normal fashion. A 12 cm incision was then made starting 2 fingerbreadths distal and 3 finger breaths posterior to the ASIS in line with the proximal femur. The skin was incised sharply. Subcutaneous tissues were divided sharply. Electrocautery was used for hemostasis. The fascia was split in line with skin incision. The interval between the sartorius and tensor fascia patricia was then bluntly developed. The posterior fascia was opened with electrocautery. The lateral circumflex vessels were identified and cauterized prior to sectioning. A retractor was placed along the superior femoral neck as well as the anterior acetabular rim. A wide capsulotomy was performed. The neck cut was then made at a 45 angle to the shaft approximately 1 1/2 cm above the level of the lesser trochanter. The head was extracted. Attention was then paid towards preparing the acetabular. Anterior and posterior retractors were placed. The remaining capsular labral tissue sharply debrided clearly defining the aceta bular margins. I began reaming with a 53 mm reamer taking care to initially medialize then reaming at 45 of abduction and 20 of anteversion. Sequential reaming is performed up to 57 mm. A trial 58 mm acetabular shell was inserted in the same orientation and was fully seated. There was good rim fit and stability. Positioning was checked with fluoroscopy. The final 58 mm acetabular shell was inserted again at 45 of abduction and 20 of anteversion. This was fully seated. There was good rim fit and stability. Again fluoroscopy was used to check the adequacy of placement. A metal liner was gently impacted. Care was taken to avoid any soft tissue interposition. Pulsatile lavage was utilized. Attention was then paid towards preparing the proximal femur. The saddle region was cleared of soft tissue. A canal finder was used to find the femoral canal. Sequential broaching was performed up to size 14 taking care to lateralize proximally. A calcar mill was used to fashion the medial calcar. There was good rotational stability. A standard neck along with a 48/28 mm +1.5 bipolar femoral head was placed. The hip was gently reduced. Fluoroscopy was used to check the adequacy of positioning along with leg lengths. I felt both were good. The hip was gently dislocated. The trial components were removed. The final size 14 collared standard press-fit femoral stem was inserted parallel to the posterior cortex. This was fully seated and there was good rotational stability. A 48/28 mm +1.5 bipolar femoral head was placed. This was gently impacted. The hip was then gently reduced. Final fluoroscopic view showed adequate placement implant along with temple of leg length. Stability was checked with 80 of external rotation and 60 of extension of the right hip. The wound was irrigated with sterile lavage. The fascia was closed with running 0 Vicryl suture. There was minimal drainage therefore a deep drain was not placed. The second dose of IV TXA was given. The subcutaneous tissues were reapproximated interrupted 2-0 Vicryl sutures. The skin was reapproximated with 3-0 subcuticular strata fix suture. Skin tape and adhesive was applied. A sterile dressing was applied. The patient was then awoken from sedation and transferred to recovery room in good condition. Blood loss was estimated at 150 mL. No complications were incurred. Sponge and needle counts were correct at the end of the case. Aristeo CORTEZ assisted during the major components is case to include exposure, bone resection, implantation, and closure.
--- NOTE | 2024-06-07 11:04 | P.ANPRN ---
Procedure Note - Anesthesia - Nerve Block Performed Right Julio Single Time Out Performed: Yes ([id number]) Date of Procedure: 06/07/24 Procedure Start Time: 07:54 Procedure Stop Time: 08:00 Indication: Acute Post-Operative Pain, Requested by Surgeon Sedation Type: Sedate with meaningful contact maintained Preparation: Sterile Prep Position: Supine Catheter: None Needle Types: Pajunk Needle Gauge: 21 Ultrasound used to visualize needle placement: Yes Ultrasound used to observe medication spread: Yes Injectate: 0.5% Ropivacaine (see comment for volume) (21 mL of block solution used for the block. Which containing 20 mL of 0.5% ropivacaine mixed with 4 mg of dexamethasone) Blood Aspirated: No Pain Paresthesia on Injection Noted: No Resistance on Injection: Normal Image Stored and Saved: Yes Events: Uneventful and Well Tolerated
--- NOTE | 2024-06-07 11:23 | XR ---
EXAMINATION TYPE: XR Hip Limited RT DATE OF EXAM: 06/07/2024 11:15 AM INDICATION: Patient age:Male; 73 years old; Reason for study: Status post hip surgery, assess surgical alignment; PHH. pain COMPARISON: Fluoroscopic images of the right hip from earlier today, right hip radiograph 05/08/2024. TECHNIQUE: The right hip was examined in the single frontal projection. FINDINGS: Post surgical changes from right hip arthroplasty. There is associated soft tissue gas and edema. Hardware appears in appropriate alignment and position on single view. No acute fracture or di slocation. IMPRESSION: Postsurgical changes from right hip arthroplasty. Hardware appears intact with appropriate position. [facility], , 06/07/2024 11:21 AM
[2024-06-07] MEDS: HYDROmorphone 0.5 MG/0.5 ML SYRINGE IVP PRN (13:28)
[2024-06-07] MEDS: Acetaminophen-Codeine 300-30mg TAB PO PRN (14:13)
[2024-06-07] MEDS: HYDROmorphone 1 MG/ML 1 ML SYRINGE IVP STA (15:06)
[2024-06-07] MEDS: hydrOXYzine pamoate 25 MG CAP PO PRN (15:11)
[2024-06-07] MEDS ORDERED: HYDROcodone/APAP 5-325MG 1 EACH TAB PO PRN ×2 (15:19)
[2024-06-07] MEDS ORDERED: HYDROcodone/APAP 7.5-325MG 1 EACH TAB PO PRN (15:20)
[2024-06-07] MEDS: HYDROcodone/APAP 7.5-325MG 1 EACH TAB PO PRN (17:35)
[2024-06-07] MEDS: ONDANSETRON 4 MG/2 ML VIAL IVP PRN (17:36)
[2024-06-07] MEDS: DOXAZOSIN 4 MG TAB PO SCH (20:52)
[2024-06-07] MEDS: SENNOSIDES-DOCUSATE SODIUM 1 EACH TAB PO SCH (20:52)
[2024-06-07 21:01] VITALS: RESP 18
[2024-06-07] MEDS: METOPROLOL TARTRATE 25 MG TAB PO SCH (22:08)
--- NOTE | 2024-06-07 23:22 | P.CONS ---
History of Present Illness - Reason for Consult Consult date: 06/07/24 Medical management - Chief Complaint Right total hip arthroplasty - History of Present Illness Patient is a 73-year-old male with a past medical history of chronic right hip pain failed conservative measures, myasthenia gravis, hypertension, history of thyroid cancer status post partial thyroidectomy, lumbar spinal fusion surgery and left hip and knee replacement was admitted to hospital for elective right total hip arthroplasty. Patient is status post surgery. Currently complaining of right hip pain and requesting IV pain medications. Patient is also feeling anxious. Denies any complaints of chest pain or shortness of breath. No nausea vomiting abdominal pain or diarrhea. No complaints of headache or dizziness. Laboratory data is not available at this time. Review of Systems Constitutional: Patient denies any fever or chills . No generalized weakness or weight loss. Abdomen: Patient denied nausea vomiting and diarrhea and abdominal pain. Cardiovascular: Patient denies any chest pain or short of breath no palpitations. Respiratory: patient denied any cough or sputum production. No shortness of breath Neurologic: Patient denied any numbness or tingling. no headache. Musculoskeletal: Patient denies any complaints of joint swelling or deformity. Right hip pain. Skin: Negative Psychiatric: Negative Endocrine: No heat or cold intolerance. No recent weight gain. Genitourinary: No dysuria or hematuria. All other 14 point ROS negative except the above Past Medical History Past Medical History: Cancer, Heart Failure, Hypertension, Osteoarthritis (OA) Additional Past Medical History / Comment(s): MYASTHENIA GRAVIS POST ANESTHESIA WHEN HE BACK SURGERY, NO RESIDUAL. HEADACHES FROM IG INFUSION. 2020 covid, bilateral lung collapsed in ICU FOR 4 WEEKS AT [facility]. 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 THYROID CANCER. GOUT History of Any Multi-Drug Resistant Organisms: None Reported Past Surgical History: Back Surgery, Hernia Repair, Joint Replacement, Orthopedic Surgery Additional Past Surgical History / Comment(s): 03/21/23 left take hip arthroplasty 11/12/18 RIGHT SHOULDER. and left shoulder, right hand surgery, LUMBAR BACK SURGERY FUSION HAS 2 RODS AND CAGES, RIGHT AND LEFT KNEE ARTHROSCOPIC, RIGHT ING,HERNIA X2. PARTIAL THYROIDECTOMY, left hip replacement left knee replaced, Right JANNETTE Past Anesthesia/Blood Transfusion Reactions: No Reported Reaction Additional Past Anesthesia/Blood Transfusion Reaction / Comm: MYASTHENIA GRAVIS POST LUMBAR SURGERY. Past Psychological History: Anxiety Additional Psychological History / Comment(s): CLAUSTROPHOBIC Smoking Status: Never smoker Past Alcohol Use History: None Reported Past Drug Use History: None Reported - Past Family History Mother Family Medical History: No Reported History Medications and Allergies Home Medications Medication Instructions Recorded Confirmed Type Potassium Chloride [Klor-Con 20] 20 meq PO HS 11/12/15 06/07/24 History Terazosin HCl [Hytrin] 10 mg PO HS 11/12/15 06/07/24 History Calcium/Magnesium/Zinc 1 tab PO DAILY 10/09/18 06/07/24 History [Wpjiudd-Fpsckwxmc-Stwa Tablet] Ivig 1 dose IV Q42D 10/09/18 06/07/24 History Metoprolol Tartrate [Lopressor] 25 mg pe PO HS 10/09/18 06/07/24 History predniSONE 20 mg PO PANIAGUA 10/09/18 06/07/24 History Cholecalciferol [Vitamin D3 (125 50 mcg PO DAILY 03/15/23 06/07/24 History Mcg = 5000 Iu)] mycophenolate mofetiL [Cellcept] 1,000 mg PO BID 03/15/23 06/07/24 History Acetaminophen-Codeine 300-30mg 1 - 2 tab PO Q4-6H PRN #36 tablet 06/07/24 Rx [Tylenol w/codeine #3] Aspirin [Adult Low Dose Aspirin EC] 81 mg PO BID #60 tab 06/07/24 Rx Ondansetron [Zofran] 4 mg PO Q8HR PRN #12 tab 06/07/24 Rx Sennosides/Docusate Sodium [Senna 1 each PO DAILY #20 capsule 06/07/24 Rx Plus 8.6-50 mg Softgel] Allergies Allergy/AdvReac Type Severity Reaction Status Date / Time adhesive tape Allergy skin Verified 06/07/24 06:47 redness Physical Exam Vitals: Vital Signs Temp Pulse Resp BP Pulse Ox 06/07/24 13:13 97.5 F L 68 17 109/64 96 06/07/24 12:08 97.3 F L 63 16 107/59 96 06/07/24 11:30 64 16 100/57 96 06/07/24 11:15 61 16 98/59 96 06/07/24 11:00 64 16 105/63 94 L 06/07/24 10:45 67 16 93/62 93 L 06/07/24 10:35 97.5 F L 74 12 92/64 92 L 06/07/24 08:05 50 L 14 150/80 98 06/07/24 06:46 97.5 F L 53 L 16 133/65 98 Intake and Output 06/06/24 06/07/24 06/07/24 22:59 06:59 14:59 Intake Total 1551 Output Total 150 Balance 1401 Intake: IV 1551 Output: Estimated Blood Loss 150 Other: Weight 85.1 kg 85.1 kg PHYSICAL EXAMINATION: Patient is lying in the bed comfortably, no acute distress, awake alert and oriented.. HEENT: Normocephalic. Neck is supple. Pupils reactive. Nostrils clear. Oral cavity is moist. Neck reveals no JVD, carotid bruits, or thyromegaly. CHEST EXAMINATION: Trachea is central. Symmetrical expansion. Bibasilar diminished sounds. No wheezing or rhonchi or crackles. CARDIAC: Normal S1, S2 with no gallops. No murmurs ABDOMEN: Soft. Bowel sounds normal. No organomegaly. No abdominal bruits. Extremities: reveal no edema. No clubbing or cyanosis Neurologically awake, alert, oriented x3 with well-coordinated movements. No focal deficits noted Skin: No rash or skin lesions. Psychiatric: Coperative. Nonsuicidal. Anxious. Musculoskeletal: No joint swelling or deformity. Normal range of motion. Assessment and Plan Assessment: Status post right total hip arthroplasty postoperative day 0 Prior history of left total hip arthroplasty and left knee arthroplasty Severe osteoarthritis Myasthenia gravis. Patient is on CellCept, prednisone, IVIG Hypertension History of thyroid cancer status post thyroidectomy History of lumbar spinal fusion surgery Anxiety DVT prophylaxis patient is on Xarelto Plan: Patient will continue on pain management, bowel regimen and encourage incentive spirometry. Start back on home medications and follow-up CBC and BMP tomorrow. Further recommendations based on the clinical course. Thank you kindly for your consult.
[2024-06-08 07:29] LABS: African American GFR (CKD) 88 (>60 ml/min/1.73 sqM); Anion Gap 8 mmol/L; Blood Urea Nitrogen 20 mg/dL (9-20); Carbon Dioxide 25 mmol/L (22-30); Chloride 100 mmol/L (98-107); Glucose 108 mg/dL (74-99); Non-African American GFR(CKD) 76 (>60 ml/min/1.73 sqM); Potassium 4.2 mmol/L (3.5-5.1); Sodium 133 mmol/L (137-145)
[2024-06-08 08:43] VITALS: BP 124/73; PULSE 63; TEMP 98.3
[2024-06-08] MEDS: RIVAROXABAN 10 MG TAB PO SCH (08:58)
[2024-06-08] MEDS: CHOLECALCIFEROL 25 MCG (1000 IU) TABLET PO SCH (08:58)
[2024-06-08] MEDS ORDERED: NON FORMULARY DRUG (Calcium/Magnesium/Zinc [Calcium-Magnesium-Zinc Tablet] 1 EACH Tablet) PO SCH (09:00)
[2024-06-08 09:22] LABS: Basophils # (A) 0.02 X 10*3/uL (0.00-0.10); Basophils % (A) 0.2 %; Eosinophils # (A) 0.03 X 10*3/uL (0.04-0.35); Eosinophils % (A) 0.3 %; HCT 38.1 % (39.6-50.0); HGB 12.7 g/dL (13.0-17.0); Lymphocytes % (A) 9.8 %; MCH 29.1 pg (27.0-32.0); MCHC 33.3 g/dL (32.0-37.0); MCV 87.2 FL (80.0-97.0); Mean Platelet Volume 10.7 FL (9.5-12.2); Monocytes # (A) 0.89 X 10*3/uL (0.20-1.00); Monocytes % (A) 7.9 %; NRBC Per 100 WBC 0 X 10*3/uL (0.00-0.01); Neutrophils # (A) 9.11 X 10*3/uL (1.80-7.70); Neutrophils % (A) 81.4 %; Platelet Count 252 X 10*3/uL (140-440); RBC 4.37 X 10*6/uL (4.40-5.60); RDW 13.9 % (11.5-14.5)
--- NOTE | 2024-06-08 11:20 | P.DS ---
Providers Date of admission: 06/06/2024 Expected date of discharge: 06/07/24 Attending physician: Luciano Grijalva Consults: 06/07/24 10:21 Consult Physician Routine Consulting Provider: Dariela Lopez Consult Reason/Comments: Medical management status post direct anterior right total hip arthroplasty Do you want consulting provider notified?: Yes Primary care physician: Stated None Hospital Course: Date of admission: 06/07/2024 Date of discharge: 06/08/2024 Admission diagnosis: Right hip osteoarthritis Discharge diagnosis: Same Attending physician: Dr. Grijalva Surgical procedures: Direct anterior right total hip arthroplasty Brief history: Patient is a 73-year-old male with a history of progressive primary right hip osteoarthritis. At this point patient has failed conservative treatment measures and has opted to proceed with a elective direct anterior right total hip arthroplasty. Hospital course: Details of patient's surgery can be found in operative report. Patient tolerated the procedure well and was subsequently transported to orthopedic floor. Patient's orthopeidc and medical care was provided daily. Patient had daily laboratory tests performed for evaluation of overall blood counts. Patient had daily physical therapy to include strengthening range of motion as well as education with walker ambulation. Patient was treated with Xarelto for their postoperative DVT prophylaxis during their inpatient stay. Patient was noted to have a relatively uneventful postoperative course. Patient reported satisfactory pain control with oral pain medications by postoperative day 1. Patient showed satisfactory progress with physical therapy. Patient moved steadily through the program and had no difficulty meeting the goals by postoperative day 1. Given patient's otherwise satisfactory course and having met physical therapy goals, plan is to discharge patient home with health services on postoperative day 1. Discharge condition/disposition: Patient will be discharged home with health services in stable condition. Discharge medications: Instructions are given on resumption of patient's normal daily medications per primary care recommendation, in addition patient will be prescribed Tylenol with codeine; senna; Zofran; aspirin 81 mg twice daily x 30 days. Discharge instructions: 1. Wound care and infection precautions, keep incision dry and covered while showering, no lotions, creams, moisturizers. No soaking, tubs, pools, hottubs. Do not scrub over the incision. 2. Weight-bear as tolerated with walker / cane until follow-up. 3. Ice and elevate when necessary. Do not exceed 20 minutes per hour with ice pack. 4. Utilize compression sleeve until seen at first follow up appointment. 5. Visiting nursing care. 6. Home physical therapy. 7. Pain meds and anticoagulants per prescription. 8. Pain medication has potential to cause constipation. Increase oral fluid and fiber intake. Contact primary care provider if you have not had a bowel movement within 48 hours after discharge 9. No anti-inflammatory medication until discussed at first post operative visit, this including Motrin, Aleve, Mobic, Diclofenac. 10. Follow up in office at 2 weeks postop with Duatre Rodriguez PA-C / Aristeo Weston PA-C 11. Follow up with your primary care doctor 7-10 days after discharge. 12. Contact [facility] with any questions, . Assessment: Right hip osteoarthritis Procedures: Direct anterior right total hip arthroplasty Patient Condition at Discharge: Good Plan - Discharge Summary Discharge Rx Participant: No New Discharge Prescriptions: New Aspirin [Adult Low Dose Aspirin EC] 81 mg PO BID #60 tab Acetaminophen-Codeine 300-30mg [Tylenol w/codeine #3] 1 - 2 tab PO Q4-6H PRN #36 tablet PRN Reason: Pain Sennosides/Docusate Sodium [Senna Plus 8.6-50 mg Softgel] 1 each PO DAILY #20 capsule Ondansetron [Zofran] 4 mg PO Q8HR PRN #12 tab PRN Reason: Nausea No Action Potassium Chloride [Klor-Con 20] 20 meq PO HS Terazosin HCl [Hytrin] 10 mg PO HS Calcium/Magnesium/Zinc [Gjevxqv-Xmogemkkt-Euzk Tablet] 1 tab PO DAILY Metoprolol Tartrate [Lopressor] 25 mg pe PO HS predniSONE 20 mg PO PANIAGUA Ivig 1 dose IV Q42D Cholecalciferol [Vitamin D3 (125 Mcg = 5000 Iu)] 50 mcg PO DAILY mycophenolate mofetiL [Cellcept] 1,000 mg PO BID Discharge Medication List Potassium Chloride [Klor-Con 20] 20 meq PO HS 11/12/15 [History] Terazosin HCl [Hytrin] 10 mg PO HS 11/12/15 [History] Calcium/Magnesium/Zinc [Vjbqgxw-Weqqkujup-Tjhb Tablet] 1 tab PO DAILY 10/09/18 [History] Ivig 1 dose IV Q42D 10/09/18 [History] Metoprolol Tartrate [Lopressor] 25 mg pe PO HS 10/09/18 [History] predniSONE 20 mg PO PANIAGUA 10/09/18 [History] Cholecalciferol [Vitamin D3 (125 Mcg = 5000 Iu)] 50 mcg PO DAILY 03/15/23 [History] mycophenolate mofetiL [Cellcept] 1,000 mg PO BID 03/15/23 [History] Acetaminophen-Codeine 300-30mg [Tylenol w/codeine #3] 1 - 2 tab PO Q4-6H PRN #36 tablet 06/07/24 [Rx] Aspirin [Adult Low Dose Aspirin EC] 81 mg PO BID #60 tab 06/07/24 [Rx] Ondansetron [Zofran] 4 mg PO Q8HR PRN #12 tab 06/07/24 [Rx] Sennosides/Docusate Sodium [Senna Plus 8.6-50 mg Softgel] 1 each PO DAILY #20 capsule 06/07/24 [Rx] Follow up Appointment(s)/Referral(s): Aristeo Weston, KAREN [PHYSICIAN MANAGER TRAINEE] - 2 Weeks [facility], [NON-STAFF] - 1-2 Days ([facility] will call you to schedule your in home nursing and physical therapy visits. ) Patient Instructions/Handouts: Anterior Hip Replacement (GEN) Activity/Diet/Wound Care/Special Instructions: Orthopedic Discharge Instructions: 1. Wound care and infection precautions, keep incision dry and covered while showering, no lotions, creams, moisturizers. No soaking, pools, hot tubs. Do not scrub over incision. 2. Weight-bear as tolerated with walker / cane until follow-up. 3. Ice and elevate when necessary. Do not exceed 20 minutes per hour with ice pack. 4. Utilize compression sleeve until seen at first follow up appointment. 5. Pain meds and anticoagulants per prescription. 6. Pain medication has potential to cause constipation. Increase oral fluid and fiber intake. Contact primary care provider if you have not had a bowel movement within 48 hours after discharge. 7. No anti-inflammatory medication until discussed at first post operative visit, this including Motrin, Aleve, Mobic, Diclofenac. 8. Follow up in office at 2 weeks postop with Duarte Rodriguez PA-C / Aristeo Weston PA-C 9. Follow up with your primary care doctor 7-10 days after discharge. 10. Contact [facility] with any questions, . Keep incision clean, dry, intact. While showering, cover fusion tape with Saran wrap. Keep fusion tape on until follow-up appointment in office in 2 weeks. Discharge Disposition: HOME WITH HOME HEALTH SERVICES
--- NOTE | 2024-06-08 11:23 | P.PN ---
Subjective Progress Note Date: 06/08/24 Principal diagnosis: Right hip osteoarthritis Patient was seen at bedside this morning sitting up in chair with dressing present over right hip. Patient says recovery has been going well since surgery yesterday. He says he has been up walking several times since surgery with the aid of walker. Patient says he does have a walker at home. Patient says he has urinated several times without problems since surgery. Patient says he is looking forward to going home later today. Patient pain under well-controlled with oral medication. Objective - Vital Signs Vital signs: Vital Signs Temp 98.3 F 06/08/24 07:00 Pulse 63 06/08/24 07:00 Resp 18 06/08/24 07:00 BP 124/73 06/08/24 07:00 Pulse Ox 95 06/08/24 07:00 FiO2 Intake & Output 06/07/24 06/08/24 06/08/24 18:59 06:59 18:59 Intake Total 1551 Output Total 150 300 Balance 1401 -300 Weight 85.1 kg Intake: IV 1551 Output: Urine 300 Estimated Blood Loss 150 Other: Voiding Method Urinal # Voids 1 1 - Exam Right hip: Incision is clean, dry, and intact. The exofin fusion tape is in good condition. There is minimal soft tissue swelling and ecchymosis surrounding the medial and lateral aspects of the incision. Calf is soft, no tenderness with palpation. Plantar flexion, dorsiflexion, EHL, FHL are intact. Sensory exam to light touch throughout the extremity is intact, dorsal pedis pulses 2+. - Labs CBC & Chem 7: 06/08/24 06:05 06/08/24 06:05 Labs: Abnormal Lab Results - Last 24 Hours (Table) 06/08/24 06/08/24 Range/Units 06:05 06:05 WBC 11.20 H (4.50-10.00) X 10*3/uL RBC 4.37 L (4.40-5.60) X 10*6/uL Hgb 12.7 L (13.0-17.0) g/dL Hct 38.1 L (39.6-50.0) % Immature Gran # 0.05 H (0.00-0.04) X 10*3/uL Neutrophils # 9.11 H (1.80-7.70) X 10*3/uL Eosinophils # 0.03 L (0.04-0.35) X 10*3/uL Sodium 133 L (137-145) mmol/L Glucose 108 H (74-99) mg/dL Assessment and Plan Assessment: 1. Right hip osteoarthritis -Postop day 1 status post direct anterior right total hip arthroplasty Plan: 1. Right hip osteoarthritis -direct anterior right total hip arthroplasty form yesterday, 06/07/2024. Patient stable bedside this morning. Patient does have a walker for home. Patient did do well with therapy this morning. Discharge home today with health services. 2. Appreciate medical management 3. Pain management -[place]; Tylenol with codeine 4. GI prophylaxis -senna 5. DVT prophylaxis -Xarelto in hospital. Going home with aspirin 80 mg twice daily x 30 days 6. PT/OT - weight-bearing as tolerated with walker 7. Encourage incentive spirometer use 8. Discharge planning -home today with health services Time with Patient: Less than 30
--- NOTE | 2024-06-08 12:17 | P.PN ---
Subjective Progress Note Date: 06/08/24 Patient is a 73-year-old male with a past medical history of chronic right hip pain failed conservative measures, myasthenia gravis, hypertension, history of thyroid cancer status post partial thyroidectomy, lumbar spinal fusion surgery and left hip and knee replacement was admitted to hospital for elective right total hip arthroplasty. Patient is status post surgery. Currently complaining of right hip pain and requesting IV pain medications. Patient is also feeling anxious. Denies any complaints of chest pain or shortness of breath. No nausea vomiting abdominal pain or diarrhea. No complaints of headache or dizziness. 06/08. Patient seen and examined labs reviewed showed WBC 9.2, hemoglobin 0.7, sodium 133, potassium 4.2. Tolerating diet. Right hip pain is improved. Patient is medically stable for discharge REVIEW OF SYSTEMS: CONSTITUTIONAL: No fever, no malaise,. CARDIOVASCULAR: No chest pain, no palpitations, no syncope. PULMONARY: No shortness of breath, no cough, GASTROINTESTINAL: No diarrhea, no nausea, no vomiting, no abdominal pain. NEUROLOGICAL: No headaches, no weakness, PHYSICAL EXAMINATION: GENERAL: The patient is alert and oriented x3, not in any acute distress. Well developed, well nourished. HEENT: Pupils are round and equally reacting to light. EOMI. No scleral icterus. No conjunctival pallor. Normocephalic, atraumatic. No pharyngeal erythema. No t hyromegaly. CARDIOVASCULAR: S1 and S2 present. No murmurs, rubs, or gallops. PULMONARY: Chest is clear to auscultation, no wheezing or crackles. ABDOMEN: Soft, nontender, nondistended, normoactive bowel sounds. No palpable organomegaly. MUSCULOSKELETAL: No joint swelling or deformity. EXTREMITIES: No cyanosis, clubbing, or pedal edema. NEUROLOGICAL: Gross neurological examination did not reveal any focal deficits. SKIN: No rashes. Assessment and plan Status post right total hip arthroplasty Prior history of left total hip arthroplasty and left knee arthroplasty Severe osteoarthritis Myasthenia gravis. Patient is on CellCept, prednisone, IVIG Hypertension History of thyroid cancer status post thyroidectomy History of lumbar spinal fusion surgery Anxiety Monitor vital signs Monitor CBC Continue pain management per orthopedics Continue DVT prophylaxis per orthopedics, currently on Xarelto Continue Lopressor Aggressive bowel regimen to prevent opioid-induced constipation Patient is medically stable for discharge Labs and medication were reviewed.. Continue same treatment. Continue with symptomatic treatment. Resume home medication. Monitor labs and vitals. DVT and GI prophylaxis. Further recommendations as per clinical course of the patient Dictation was produced using [employer] dictation software. please excuse any grammatical, word or spelling errors. r Objective - Vital Signs Vital signs: Vital Signs Temp 98.3 F 06/08/24 07:00 Pulse 63 06/08/24 07:00 Resp 18 06/08/24 07:00 BP 124/73 06/08/24 07:00 Pulse Ox 95 06/08/24 07:00 FiO2 Intake & Output 06/07/24 06/08/24 06/08/24 18:59 06:59 18:59 Intake Total 1551 Output Total 150 300 Balance 1401 -300 Weight 85.1 kg Intake: IV 1551 Output: Urine 300 Estimated Blood Loss 150 Other: Voiding Method Urinal # Voids 1 1 - Labs CBC & Chem 7: 06/08/24 06:05 06/08/24 06:05 Labs: Abnormal Lab Results - Last 24 Hours (Table) 06/08/24 06/08/24 Range/Units 06:05 06:05 WBC 11.20 H (4.50-10.00) X 10*3/uL RBC 4.37 L (4.40-5.60) X 10*6/uL Hgb 12.7 L (13.0-17.0) g/dL Hct 38.1 L (39.6-50.0) % Immature Gran # 0.05 H (0.00-0.04) X 10*3/uL Neutrophils # 9.11 H (1.80-7.70) X 10*3/uL Eosinophils # 0.03 L (0.04-0.35) X 10*3/uL Sodium 133 L (137-145) mmol/L Glucose 108 H (74-99) mg/dL
[2024-06-09] MEDS ORDERED: predniSONE 20 MG TAB PO SCH (09:00)
== END 2024-06-08 14:05 | disposition home health service (06) ==
LOC: OR 06:24 → 4SSUR 10:28 → OR 06-08 14:05
PROVIDERS: ATTEND Orthopaedic Surgery
DX: M16.11 Unilateral primary osteoarthritis, right hip (principal); M10.9 Gout, unspecified; I11.0 Hypertensive heart disease with heart failure; I50.9 Heart failure, unspecified; G70.00 Myasthenia gravis without (acute) exacerbation; Z86.16 Personal history of COVID-19; Z85.850 Personal history of malignant neoplasm of thyroid; Z98.890 Other specified postprocedural states; Z96.643 Presence of artificial hip joint, bilateral; Z79.624 Long term (current) use of inhibitors of nucleotide synthesis; Z79.01 Long term (current) use of anticoagulants; Z79.899 Other long term (current) drug therapy
CPT/HCPCS: 97161; 64473; 80048; 85025; 85610; 73501; 27130; C1776; J2250; J1100; J0690 ×3; J2405; J3010; J7517 ×2; J1171 ×2

== ENCOUNTER 2024-06-21 22:52 | Inpatient (IN) | payer MEDICARE, BC ==
[2024-06-21] MEDS: LACTATED RINGERS 1,000 ML IV ONE (23:47)
[2024-06-21] MEDS: LORazepam 2 MG/ML INJ IV STA (23:48)
[2024-06-21] MEDS: ACETAMINOPHEN TAB 325 MG TAB PO STA (23:48)
[2024-06-21 23:58] LABS: Basophils # (A) 0.06 10*3/uL (0.00-0.10); Basophils % (A) 0.4 %; Eosinophils # (A) 0.04 10*3/uL (0.04-0.35); Eosinophils % (A) 0.2 %; HCT 38.1 % (39.6-50.0); HGB 13.2 g/dL (13.0-17.0); Lymphocytes # (A) 0.88 10*3/uL (0.90-5.00); Lymphocytes % (A) 5.4 %; MCH 30.1 pg (27.0-32.0); MCHC 34.6 g/dL (32.0-37.0); Mean Platelet Volume 9.9 fL (9.5-12.2); Monocytes # (A) 0.99 10*3/uL (0.20-1.00); Neutrophils # (A) 14.36 10*3/uL (1.80-7.70); Neutrophils % (A) 87.6 %; Platelet Count 344 10*3/uL (140-440); RBC 4.38 10*6/uL (4.40-5.60); RDW 14.2 % (11.5-14.5)
[2024-06-22 00:10] LABS: INR 1.1 (<1.2); Partial Thromboplastin Time 29.6 sec (22.0-30.0); Prothrombin Time 11.5 sec (10.0-12.5)
--- NOTE | 2024-06-22 00:25 | ED ---
General Adult HPI - General Chief complaint: Fever Stated complaint: Fever Time Seen by Provider: 06/21/24 23:07 Source: patient, RN notes reviewed Mode of arrival: ambulatory Limitations: no limitations - History of Present Illness Initial comments: 73-year-old male presents to the emergency department for evaluation of fever. Patient notes that he has been running a fever for the past 3 days. He was seen at a walk-in clinic and was advised to come in for an outpatient abdominal CT. He had this performed today and states that he received a call that he should switch his antibiotic. He notes that his temperature had risen and this prompted his visit to the emergency department today. The patient also reports a recent right hip replacement 2 weeks ago. He has been on Keflex for a surgical site infection. He does note that the erythema to the area has improved but there is still some present and it is swollen and tender in that area as well. He reports that he went to see Dr. Grijalva and there was some drainage from the area at that time. He endorses chills, fever. Denies vomiting. Denies changes in his bowel movements. - Related Data Home Medications Medication Instructions Recorded Confirmed Potassium Chloride [Klor-Con 20] 20 meq PO HS 11/12/15 06/22/24 Terazosin HCl [Hytrin] 10 mg PO HS 11/12/15 06/22/24 Calcium/Magnesium/Zinc 1 tab PO HS 10/09/18 06/22/24 [Swlslsl-Ujgewgebq-Izdu Tablet] Metoprolol Tartrate [Lopressor] 25 mg PO HS 10/09/18 06/22/24 Cholecalciferol [Vitamin D3 (125 125 mcg PO HS 03/15/23 06/22/24 Mcg = 5000 Iu)] mycophenolate mofetiL [Cellcept] 1,000 mg PO BID 03/15/23 06/22/24 ALPRAZolam [Xanax] 0.5 - 1 mg PO BID PRN 06/22/24 06/22/24 Acetaminophen-Codeine 300-30mg 1 tab PO Q6H PRN 06/22/24 06/22/24 [Tylenol w/codeine #3] Amoxicillin 2,000 mg PO ONCE PRN 06/22/24 06/22/24 HYDROcodone/APAP 7.5-325MG [Cabool 1 tab PO Q6H PRN 06/22/24 06/22/24 7.5-325] Pyridostigmine [place] [Mestinon] 60 mg PO DAILY PRN 06/22/24 06/22/24 predniSONE [Deltasone] 20 mg PO PANIAGUA 06/22/24 06/22/24 Previous Rx's Medication Instructions Recorded Aspirin [Adult Low Dose Aspirin EC] 81 mg PO BID #60 tab 06/07/24 Ondansetron [Zofran] 4 mg PO Q8HR PRN #12 tab 06/07/24 cefuroxime axetiL [Ceftin] 500 mg PO 20 #10 tab 06/27/24 metroNIDAZOLE [Flagyl] 500 mg PO TID 10 Days #30 tab 06/27/24 Allergies Allergy/AdvReac Type Severity Reaction Status Date / Time adhesive tape Allergy skin Verified 06/22/24 09:25 redness lactose AdvReac Diarrhea Verified 06/25/24 19:45 Review of Systems ROS Statement: Those systems with pertinent positive or pertinent negative responses have been documented in the HPI. ROS Other: All systems not noted in ROS Statement are negative. Past Medical History Past Medical History: Cancer, Heart Failure, Hypertension, Osteoarthritis (OA) Additional Past Medical History / Comment(s): MYASTHENIA GRAVIS POST ANESTHESIA WHEN HE BACK SURGERY, NO RESIDUAL. HEADACHES FROM IG INFUSION. 2020 covid, bilateral lung collapsed in ICU FOR 4 WEEKS AT [facility]. 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 THYROID CANCER. GOUT History of Any Multi-Drug Resistant Organisms: None Reported Past Surgical History: Hernia Repair, Orthopedic Surgery Additional Past Surgical History / Comment(s): 03/21/23 left take hip arthroplasty 11/12/18 RIGHT SHOULDER. and left shoulder, right hand surgery, LUMBAR BACK SURGERY FUSION HAS 2 RODS AND CAGES, RIGHT AND LEFT KNEE ARTHROSCOPIC, RIGHT ING,HERNIA X2. PARTIAL THYROIDECTOMY, left hip replacement left knee replaced, Right JANNETTE Past Anesthesia/Blood Transfusion Reactions: No Reported Reaction Additional Past Anesthesia/Blood Transfusion Reaction / Comment(s): MYASTHENIA GRAVIS POST LUMBAR SURGERY. Past Psychological History: Anxiety Smoking Status: Never smoker Past Alcohol Use History: None Reported Past Drug Use History: None Reported - Past Family History Mother Family Medical History: No Reported History General Exam Limitations: no limitations General appearance: alert, in no apparent distress Head exam: Present: atraumatic, normocephalic, normal inspection Eye exam: Present: normal appearance, PERRL, EOMI. Absent: scleral icterus, conjunctival injection, periorbital swelling ENT exam: Present: normal exam, mucous membranes moist Respiratory exam: Present: normal lung sounds bilaterally. Absent: respiratory distress, wheezes, rales, rhonchi, stridor Cardiovascular Exam: Present: regular rate, normal rhythm, normal heart sounds. Absent: systolic murmur, diastolic murmur, rubs, gallop, clicks GI/Abdominal exam: Present: distended, tenderness (Left lower quadrant abdominal tenderness to palpation), normal bowel sounds. Absent: guarding, rebound, rigid Extremities exam: Present: full ROM, tenderness, other (Erythematous and swollen area to the surgical incision site on the right lateral thigh) Neurological exam: Present: alert, oriented X3 Psychiatric exam: Present: normal affect, normal mood Skin exam: Present: warm, dry. Absent: intact, normal color (See above) Course Vital Signs 06/21/24 06/21/24 06/22/24 22:56 23:44 00:00 Temperature 101.4 F H 100.0 F H Pulse Rate 91 84 Respiratory 18 16 Rate Blood Pressure 112/72 122/71 O2 Sat by Pulse 97 98 Oximetry 06/22/24 06/22/24 06/22/24 02:42 05:27 09:00 Temperature Pulse Rate 71 69 80 Respiratory 16 16 18 Rate Blood Pressure 116/62 121/60 135/73 O2 Sat by Pulse 95 96 98 Oximetry 06/22/24 06/22/24 06/22/24 10:03 12:48 14:17 Temperature 99.7 F H 101.2 F H 101.8 F H Pulse Rate 79 76 78 Respiratory 18 18 18 Rate Blood Pressure 145/69 111/66 134/72 O2 Sat by Pulse 97 97 98 Oximetry Medical Decision Making - Medical Decision Making Was pt. sent in by a medical professional or institution (, PA, [employer], urgent care, hospital, or jail...) When possible be specific @ -No Did you speak to anyone other than the patient for history (EMS, parent, family, police, friend...)? What history was obtained from this source @ -No Did you review nursing and triage notes (agree or disagree)? Why? @ -I reviewed and agree with nursing and triage notes Were old charts reviewed (outside hosp., previous admission, EMS record, old EKG, old radiological studies, urgent care reports/EKG's, jail records)? Report findings @ -I reviewed the patient's outpatient CT of the abdomen and pelvis revealing acute uncomplicated diverticulitis Differential Diagnosis (chest pain, altered mental status, abdominal pain women, abdominal pain men, vaginal bleeding, weakness, fever, dyspnea, syncope, headache, dizziness, GI bleed, back pain, seizure, CVA, palpatations, mental health, musculoskeletal)? @ -Differential Fever: Pneumonia, viral URI, endocarditis, myocarditis, pericarditis, otitis, sinusitis, peritonsillar Abscess, retropharyngeal Abscess, epiglottitis, peritonitis, appendicitis, Tammy cystitis, diverticulitis, hepatitis, colitis, UTI, PID, TOA, pyelonephritis, prostatitis, epididymitis, meningitis, encephalitis, pulmonary embolism, CVA, thyroid storm, pancreatitis, adrenal crisis, cavernous sinus thrombosis, this is not meant to be an all-inclusive list. EKG interpreted by me (3pts min.). @ -None X-rays interpreted by me (1pt min.). @ -None done CT interpreted by me (1pt min.). @ -None done U/S interpreted by me (1pt. min.). @ -None done What testing was considered but not performed or refused? (CT, X-rays, U/S, labs)? Why? @ -None What meds were considered but not given or refused? Why? @ -None Did you discuss the management of the patient with other professionals (professionals i.e. , PA, [employer], lab, RT, psych nurse, rn social work, laboratory technology teacher, teacher, executive vice president and chief operating officer, window caser)? Give summary @ -Management discussed with [facility] by EC attending, Dr. Machado Was smoking cessation discussed for >3mins.? @ -No Was critical care preformed (if so, how long)? @ -No Were there social determinants of health that impacted care today? How? (Homelessness, low income, unemployed, alcoholism, drug addiction, transportation, low edu. Level, literacy, decrease access to med. care, care home, rehab)? @ -No Was there de-escalation of care discussed even if they declined (Discuss DNR or withdrawal of care, Hospice)? DNR status @ -No What co-morbidities impacted this encounter? (DM, HTN, Smoking, COPD, CAD, Cancer, CVA, ARF, Chemo, Hep., AIDS, mental health diagnosis, sleep apnea, morbid obesity)? @ -None Was patient admitted / discharged? Hospital course, mention meds given and route, prescriptions, significant lab abnormalities, going to OR and other pert inent info. @ -Admitted. Patient presented emergency department for evaluation of fever. Patient had an outpatient CT done of the abdomen pelvis today revealing acute uncomplicated diverticulitis. He states that he has been running a fever for the past 3 days. Admits to left-sided abdominal pain. Laboratory studies obtained revealing leukocytosis at 16. No significant lactic acidosis. Patient febrile in the emergency department. He was administered antipyretics. He was also administered IV fluids, lactated Ringer's. Patient also has erythema and swelling to the surgical wound from his hip replacement that was performed 2 weeks ago. Patient will be started on Unasyn and vancomycin for coverage of both of these issues. He will be admitted to the hospital with consultation to his orthopedic provider. He is understanding agreeable with this plan. Patient stable at time of admission. The case was discussed with [facility] by EC attending, Dr. Cain. Undiagnosed new problem with uncertain prognosis? @ -No Drug Therapy requiring intensive monitoring for toxicity (Heparin, Nitro, Insulin, Cardizem)? @ -No Were any procedures done? @ -No Diagnosis/symptom? @ -Diverticulitis, surgical site infection Acute, or Chronic, or Acute on Chronic? @ -Acute Uncomplicated (without systemic symptoms) or Complicated (systemic symptoms)? @ -Complicated Side effects of treatment? @ -No Exacerbation, Progression, or Severe Exacerbation? @ -No Poses a threat to life or bodily function? How? (Chest pain, USA, HI, pneumonia, PE, COPD, DKA, ARF, appy, cholecystitis, CVA, Diverticulitis, Homicidal, Suicidal, threat to staff... and all critical care pts) @ -No - Lab Data Result diagrams: 06/28/24 03:28 06/26/24 02:41 Lab Results 06/21/24 06/21/24 06/21/24 Range/Units 23:37 23:37 23:37 WBC 16.40 H (4.50-10.00) 10*3/uL RBC 4.38 L (4.40-5.60) 10*6/uL Hgb 13.2 (13.0-17.0) g/dL Hct 38.1 L (39.6-50.0) % MCV 87.0 (80.0-97.0) fL MCH 30.1 (27.0-32.0) pg MCHC 34.6 (32.0-37.0) g/dL RDW (11.5-14.5) % Plt Count 344 (140-440) 10*3/uL MPV 9.9 (9.5-12.2) fL Immature Gran % (Auto) 0.4 % Absolute Nucleated RBC % Neutrophils % 87.6 % Lymphocytes % 5.4 % Monocytes % 6.0 % Eosinophils % 0.2 % Basophils % 0.4 % Immature Gran # 0.07 H (0.00-0.04) 10*3/uL Neutrophils # 14.36 H (1.80-7.70) 10*3/uL Lymphocytes # 0.88 L (0.90-5.00) 10*3/uL Monocytes # 0.99 (0.20-1.00) 10*3/uL Eosinophils # 0.04 (0.04-0.35) 10*3/uL Basophils # 0.06 (0.00-0.10) 10*3/uL NRBC/100 WBC Diff (0.00-0.01) X 10*3/uL ESR (0-20) mm/Hr PT (10.0-12.5) sec INR (<1.2) APTT (22.0-30.0) sec Sodium 134 L (137-145) mmol/L Potassium 4.4 (3.5-5.1) mmol/L Chloride 101 (98-107) mmol/L Carbon Dioxide 23 (22-30) mmol/L Anion Gap 10 mmol/L BUN 26 H (9-20) mg/dL Creatinine 1.09 (0.66-1.25) mg/dL Est GFR (CKD-EPI) (>=60) Est GFR (CKD-EPI)AfAm 78 (>60 ml/min/1.73 sqM) Est GFR (CKD-EPI)NonAf 68 (>60 ml/min/1.73 sqM) BUN/Creatinine Ratio (12.00-20.00) Ratio Glucose 105 H (74-99) mg/dL Plasma Lactic Acid Larry 1.1 (0.7-2.0) mmol/L Calcium 9.5 (8.4-10.2) mg/dL Total Bilirubin 1.1 (0.2-1.3) mg/dL AST 24 (17-59) U/L ALT 20 (4-49) U/L Alkaline Phosphatase 101 (38-126) U/L C-Reactive Protein (0.00-0.80) mg/dL Total Protein 6.3 (6.3-8.2) g/dL Albumin 4.0 (3.5-5.0) g/dL 06/21/24 06/22/24 06/23/24 Range/Units 23:37 13:11 03:41 WBC 10.51 H (4.50-10.00) 10*3/uL RBC 3.90 L (4.40-5.60) 10*6/uL Hgb 11.4 L (13.0-17.0) g/dL Hct 35.3 L (39.6-50.0) % MCV 90.5 (80.0-97.0) fL MCH 29.2 (27.0-32.0) pg MCHC 32.3 (32.0-37.0) g/dL RDW 14.1 (11.5-14.5) % Plt Count 274 (140-440) 10*3/uL MPV 10.0 (9.5-12.2) fL Immature Gran % (Auto) % Absolute Nucleated RBC 0 % Neutrophils % % Lymphocytes % % Monocytes % % Eosinophils % % Basophils % % Immature Gran # (0.00-0.04) 10*3/uL Neutrophils # (1.80-7.70) 10*3/uL Lymphocytes # (0.90-5.00) 10*3/uL Monocytes # (0.20-1.00) 10*3/uL Eosinophils # (0.04-0.35) 10*3/uL Basophils # (0.00-0.10) 10*3/uL NRBC/100 WBC Diff 0 (0.00-0.01) X 10*3/uL ESR (0-20) mm/Hr PT 11.5 12.6 H (10.0-12.5) sec INR 1.1 1.2 H (<1.2) APTT 29.6 (22.0-30.0) sec Sodium (137-145) mmol/L Potassium (3.5-5.1) mmol/L Chloride (98-107) mmol/L Carbon Dioxide (22-30) mmol/L Anion Gap mmol/L BUN (9-20) mg/dL Creatinine (0.66-1.25) mg/dL Est GFR (CKD-EPI) (>=60) Est GFR (CKD-EPI)AfAm (>60 ml/min/1.73 sqM) Est GFR (CKD-EPI)NonAf (>60 ml/min/1.73 sqM) BUN/Creatinine Ratio (12.00-20.00) Ratio Glucose (74-99) mg/dL Plasma Lactic Acid Larry (0.7-2.0) mmol/L Calcium (8.4-10.2) mg/dL Total Bilirubin (0.2-1.3) mg/dL AST (17-59) U/L ALT (4-49) U/L Alkaline Phosphatase (38-126) U/L C-Reactive Protein (0.00-0.80) mg/dL Total Protein (6.3-8.2) g/dL Albumin (3.5-5.0) g/dL 06/23/24 06/23/24 06/23/24 Range/Units 03:41 03:41 03:41 WBC (4.50-10.00) 10*3/uL RBC (4.40-5.60) 10*6/uL Hgb (13.0-17.0) g/dL Hct (39.6-50.0) % MCV (80.0-97.0) fL MCH (27.0-32.0) pg MCHC (32.0-37.0) g/dL RDW (11.5-14.5) % Plt Count (140-440) 10*3/uL MPV (9.5-12.2) fL Immature Gran % (Auto) % Absolute Nucleated RBC % Neutrophils % % Lymphocytes % % Monocytes % % Eosinophils % % Basophils % % Immature Gran # (0.00-0.04) 10*3/uL Neutrophils # (1.80-7.70) 10*3/uL Lymphocytes # (0.90-5.00) 10*3/uL Monocytes # (0.20-1.00) 10*3/uL Eosinophils # (0.04-0.35) 10*3/uL Basophils # (0.00-0.10) 10*3/uL NRBC/100 WBC Diff (0.00-0.01) X 10*3/uL ESR 31 H (0-20) mm/Hr PT (10.0-12.5) sec INR (<1.2) APTT (22.0-30.0) sec Sodium 136 (137-145) mmol/L Potassium 4.3 (3.5-5.1) mmol/L Chloride 104 (98-107) mmol/L Carbon Dioxide 24.6 (22-30) mmol/L Anion Gap 7.40 mmol/L BUN 14.2 (9-20) mg/dL Creatinine 1.0 (0.66-1.25) mg/dL Est GFR (CKD-EPI) 80 (>=60) Est GFR (CKD-EPI)AfAm (>60 ml/min/1.73 sqM) Est GFR (CKD-EPI)NonAf (>60 ml/min/1.73 sqM) BUN/Creatinine Ratio 14.20 (12.00-20.00) Ratio Glucose 98 (74-99) mg/dL Plasma Lactic Acid Larry (0.7-2.0) mmol/L Calcium 8.4 L (8.4-10.2) mg/dL Total Bilirubin (0.2-1.3) mg/dL AST (17-59) U/L ALT (4-49) U/L Alkaline Phosphatase (38-126) U/L C-Reactive Protein 20.40 H (0.00-0.80) mg/dL Total Protein (6.3-8.2) g/dL Albumin (3.5-5.0) g/dL 06/24/24 06/24/24 Range/Units 02:41 02:41 WBC 11.04 H (4.50-10.00) 10*3/uL RBC 3.86 L (4.40-5.60) 10*6/uL Hgb 11.4 L (13.0-17.0) g/dL Hct 34.7 L (39.6-50.0) % MCV 89.9 (80.0-97.0) fL MCH 29.5 (27.0-32.0) pg MCHC 32.9 (32.0-37.0) g/dL RDW 13.8 (11.5-14.5) % Plt Count 339 (140-440) 10*3/uL MPV 10.2 (9.5-12.2) fL Immature Gran % (Auto) 0.60 % Absolute Nucleated RBC 0 % Neutrophils % 88.3 % Lymphocytes % 5.5 % Monocytes % 5.3 % Eosinophils % 0.1 % Basophils % 0.2 % Immature Gran # 0.07 H (0.00-0.04) 10*3/uL Neutrophils # 9.74 H (1.80-7.70) 10*3/uL Lymphocytes # 0.61 L (0.90-5.00) 10*3/uL Monocytes # 0.59 (0.20-1.00) 10*3/uL Eosinophils # 0.01 L (0.04-0.35) 10*3/uL Basophils # 0.02 (0.00-0.10) 10*3/uL NRBC/100 WBC Diff 0 (0.00-0.01) X 10*3/uL ESR (0-20) mm/Hr PT (10.0-12.5) sec INR (<1.2) APTT (22.0-30.0) sec Sodium 137 (137-145) mmol/L Potassium 4.6 (3.5-5.1) mmol/L Chloride 103 (98-107) mmol/L Carbon Dioxide 23.1 (22-30) mmol/L Anion Gap 10.90 mmol/L BUN 12.0 (9-20) mg/dL Creatinine 0.9 (0.66-1.25) mg/dL Est GFR (CKD-EPI) 91 (>=60) Est GFR (CKD-EPI)AfAm (>60 ml/min/1.73 sqM) Est GFR (CKD-EPI)NonAf (>60 ml/min/1.73 sqM) BUN/Creatinine Ratio 13.33 (12.00-20.00) Ratio Glucose 132 H (74-99) mg/dL Plasma Lactic Acid Larry (0.7-2.0) mmol/L Calcium 8.8 (8.4-10.2) mg/dL Total Bilirubin (0.2-1.3) mg/dL AST (17-59) U/L ALT (4-49) U/L Alkaline Phosphatase (38-126) U/L C-Reactive Protein (0.00-0.80) mg/dL Total Protein (6.3-8.2) g/dL Albumin (3.5-5.0) g/dL Disposition Clinical Impression: Surgical site infection, Diverticulitis Disposition: ADMITTED IP TO THIS HOSP Condition: Stable Is patient prescribed a controlled substance at d/c from ED?: No
[2024-06-22 00:33] LABS: ALT 20 U/L (4-49); AST 24 U/L (17-59); African American GFR (CKD) 78 (>60 ml/min/1.73 sqM); Alkaline Phosphatase 101 U/L (38-126); Anion Gap 10 mmol/L; Blood Urea Nitrogen 26 mg/dL (9-20); Calcium 9.5 mg/dL (8.4-10.2); Carbon Dioxide 23 mmol/L (22-30); Chloride 101 mmol/L (98-107); Glucose 105 mg/dL (74-99); Non-African American GFR(CKD) 68 (>60 ml/min/1.73 sqM); Potassium 4.4 mmol/L (3.5-5.1); Sodium 134 mmol/L (137-145); Total Bilirubin 1.1 mg/dL (0.2-1.3); Total Protein 6.3 g/dL (6.3-8.2)
[2024-06-22] MEDS ORDERED: VANCOMYCIN IV PER PHARMACY 1 EACH MISC MISCELLANE PRN (00:56)
[2024-06-22] MEDS: AMPICILLIN-SULBACTAM 3 GM in SODIUM CHLORIDE 0.9% 100 ML IVPB STA (01:11)
[2024-06-22] MEDS: MORPHINE SULFATE 4 MG/ML SYRINGE IVP STA (01:11)
[2024-06-22] MEDS: LACTATED RINGERS 1,000 ML IV ONE (01:12)
[2024-06-22] MEDS: LACTATED RINGERS 1,000 ML IV SCH (01:16)
[2024-06-22] MEDS: VANCOMYCIN 1,500 MG in SODIUM CHLORIDE 0.9% 500 ML 500 ML IVPB ONE (02:55)
[2024-06-22] MEDS ORDERED: NALOXONE 0.4 MG/ML 1 ML VIAL IV PRN (03:30)
--- NOTE | 2024-06-22 09:19 | P.CNOR ---
History of Present Illness - [facility] Consult date: 06/22/24 Requesting physician: Kirstin Cardenas Consult reason: other (recent right hip replacement) History of present illness: Patient is a 73-year-old male who presented to the emergency department late last night for evaluation of fever. Orthopedics has been consulted due to recent right total hip arthroplasty. Patient did have direct anterior right total hip arthroplasty performed by Dr. Grijalva on 06/07/2024. Patient had been seen in the outpatient setting in clinic and was undergoing a regimen of Keflex 500 mg 4 times daily. Patient states he was seen at the walk-in clinic yesterday due to some increasing abdominal pain along with these fevers where he was advised to come in for an outpatient abdominal CT. After the abdominal CT was performed he received a call saying that he should switch his antibiotic. Patient states his temperature increased last night and is stated he needed to come to the emergency department. Patient states he does have increased pain to the right hip. Patient does note there was a little portion of the incision in the middle where there was some drainage. Patient notes some red streaks going from the incision back towards his buttocks on the right side. Patient denies any vomiting. He denies any change in bowel habits. Patient says he has had a couple hernia repairs on the right side in his past. Patient does note over the past couple days he has had some more swelling in the left side of the lower abdomen and pain in the left side and is wondering if he possibly has a hernia on that side. Patient says she has been weightbearing as tolerated. Patient also notes some pain in the right knee which she thinks may be referred from the pain in the right hip since he had surgery recently on the hip. Patient denies any falls or traumas at this time. Patient denies any other issues. Past Medical History Past Medical History: Cancer, Heart Failure, Hypertension, Osteoarthritis (OA) Additional Past Medical History / Comment(s): MYASTHENIA GRAVIS POST ANESTHESIA WHEN HE BACK SURGERY, NO RESIDUAL. HEADACHES FROM IG INFUSION. 2020 covid, bilateral lung collapsed in ICU FOR 4 WEEKS AT [facility]. 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 THYROID CANCER. GOUT History of Any Multi-Drug Resistant Organisms: None Reported Past Surgical History: Hernia Repair, Orthopedic Surgery Additional Past Surgical History / Comment(s): 03/21/23 left take hip arthroplasty 11/12/18 RIGHT SHOULDER. and left shoulder, right hand surgery, LUMBAR BACK SURGERY FUSION HAS 2 RODS AND CAGES, RIGHT AND LEFT KNEE ARTHROSCOPIC, RIGHT ING,HERNIA X2. PARTIAL THYROIDECTOMY, left hip replacement left knee replaced, Right JANNETTE Past Anesthesia/Blood Transfusion Reactions: No Reported Reaction Additional Past Anesthesia/Blood Transfusion Reaction / Comm: MYASTHENIA GRAVIS POST LUMBAR SURGERY. Past Psychological History: Anxiety Smoking Status: Never smoker Past Alcohol Use History: None Reported Past Drug Use History: None Reported - Past Family History Mother Family Medical History: No Reported History Medications and Allergies Home Medications Medication Instructions Recorded Confirmed Type Potassium Chloride [Klor-Con 20] 20 meq PO HS 11/12/15 06/07/24 History Terazosin HCl [Hytrin] 10 mg PO HS 11/12/15 06/07/24 History Calcium/Magnesium/Zinc 1 tab PO DAILY 10/09/18 06/07/24 History [Vxcrpaz-Oicjtgcoi-Ucab Tablet] Ivig 1 dose IV Q42D 10/09/18 06/07/24 History Metoprolol Tartrate [Lopressor] 25 mg pe PO HS 10/09/18 06/07/24 History predniSONE 20 mg PO PANIAGUA 10/09/18 06/07/24 History Cholecalciferol [Vitamin D3 (125 50 mcg PO DAILY 03/15/23 06/07/24 History Mcg = 5000 Iu)] mycophenolate mofetiL [Cellcept] 1,000 mg PO BID 03/15/23 06/07/24 History Acetaminophen-Codeine 300-30mg 1 - 2 tab PO Q4-6H PRN #36 tablet 06/07/24 Rx [Tylenol w/codeine #3] Aspirin [Adult Low Dose Aspirin EC] 81 mg PO BID #60 tab 06/07/24 Rx Ondansetron [Zofran] 4 mg PO Q8HR PRN #12 tab 06/07/24 Rx Sennosides/Docusate Sodium [Senna 1 each PO DAILY #20 capsule 06/07/24 Rx Plus 8.6-50 mg Softgel] Allergies Allergy/AdvReac Type Severity Reaction Status Date / Time adhesive tape Allergy skin Verified 06/21/24 22:55 redness Physical Examination Right hip Steri-Strips are present over the anterior incision on the right hip. There is some erythema locally near the edges of the incision. At the midportion of the incision the wound appears to not be healing fully. Negative for any active drainage from this area. Sensation is equal, symmetric, by intact throughout the extremities on exam. Patient does have significant tenderness to patient near the incision on the right hip and some moderate tenderness to patient extending laterally over the right hip. Patient does have some moderate tenderness to patient over the medial patellar facet and over the medial femoral epicondyle on the right knee. Nontender on rest of exam. Patient does have some limited range of motion in the right hip secondary to stiffness and referr ed pain due to the recent surgery. Patient does have good range of motion throughout the left lower extremity on exam in bilateral upper extremities on exam.4-/5 in right lower extremity in all major motor groups. 4+/5 in left lower extremity and bilateral upper extremities in all major motor groups. Radial pulse intact, 2+ bilaterally. Cap refill under 3 seconds in digits of upper extremities. Negative Homans bilaterally. Negative clonus bilaterally. Results - Labs Labs: Abnormal Lab Results - Last 24 Hours (Table) 06/21/24 06/21/24 Range/Units 23:37 23:37 WBC 16.40 H (4.50-10.00) 10*3/uL RBC 4.38 L (4.40-5.60) 10*6/uL Hct 38.1 L (39.6-50.0) % Immature Gran # 0.07 H (0.00-0.04) 10*3/uL Neutrophils # 14.36 H (1.80-7.70) 10*3/uL Lymphocytes # 0.88 L (0.90-5.00) 10*3/uL Sodium 134 L (137-145) mmol/L BUN 26 H (9-20) mg/dL Glucose 105 H (74-99) mg/dL H & H 06/21/24 Range/Units 23:37 Hgb 13.2 (13.0-17.0) g/dL Hct 38.1 L (39.6-50.0) % Coagulation 06/21/24 Range/Units 23:37 INR 1.1 (<1.2) Result Diagrams: 06/21/24 23:37 06/21/24 23:37 - Diagnostic results Comments: CT scan of the abdomen has been reviewed. Positive for left-sided hernia as well as diverticulitis Assessment and Plan Assessment: 1. History of recent direct anterior right total hip arthroplasty; fever; diverticulitis; history of multiple hernia repairs Plan: 1. History of recent direct anterior right total hip arthroplasty; fever; diverticulitis;hernia; history of multiple hernia repairs -CT of the abdomen does reveal diverticulitis as well as hernia on the left side. Patient does have fever and history of recent right total hip arthroplasty. I will discuss the findings of the exam and imaging with my attending, Dr. Grijalva before proceeding with any potential orthopedic intervention. Patient currently on vancomycin due to fever. General surgery has been consulted for diverticulitis/hernia and infectious disease consulted for fever. Patient may weight-bear as tolerated with a walker. Pain medication as needed. Further recommendations to follow 2. Appreciate medical, general surgery, ID management 3. Pain management - tylenol with codeine 4. DVT prophylaxis - mechanical 5. GI prophylaxis - senna 6. PT/OT -weightbearing as tolerated with walker 7. Encourage incentive spirometer use 8. Appreciate consult Time with Patient: Less than 30
[2024-06-22] MEDS: HYDROmorphone 1 MG/ML 1 ML SYRINGE IVP PRN (10:05)
[2024-06-22] MEDS: SENNOSIDES 8.6 MG TAB PO SCH (10:16)
[2024-06-22] MEDS ORDERED: VANCOMYCIN 1,250 MG in SODIUM CHLORIDE 0.9% 250 ML IVPB SCH (12:00)
[2024-06-22] MEDS: PIPERACILLIN-TAZOBACTAM 3.375 GM in SODIUM CHLORIDE 0.9% 100 ML IVPB SCH (12:49)
[2024-06-22] MEDS: ACETAMINOPHEN TAB 325 MG TAB PO PRN (12:55)
[2024-06-22] MEDS: HYDROmorphone 0.5 MG/0.5 ML SYRINGE IVP PRN (12:55)
[2024-06-22 13:45] LABS: INR 1.2 (<1.2); Prothrombin Time 12.6 sec (10.0-12.5)
--- NOTE | 2024-06-22 14:14 | P.HPIM ---
History of Present Illness 73-year-old male was brought in by his because of his severe left lower quadrant abdominal pain and diverticulitis for which patient on oral antibiotics as an outpatient patient is severe sigmoid diverticulitis without any abscess. Patient also had a hip surgery 2 weeks ago patient is surgical site appears to be infected because of which patient was started on daptomycin here patient had fever yesterday patient was eval by infectious disease and daptomycin is added to the Zosyn because of the possible surgical site area infection. Orthopedics will evaluate the patient. Orthopedic surgery recommending incision and draina ge of the surgical site area. Patient also has left inguinal hernia had multiple surgeries in the past General Surgery. Will evaluate the patient as well REVIEW OF SYSTEMS: All other systems are negative except those mentioned in the HPI PHYSICAL EXAMINATION: GENERAL: The patient is alert and oriented x3, not in any acute distress. Well developed, well nourished. HEENT: Pupils are round and equally reacting to light. EOMI. No scleral icterus. No conjunctival pallor. Normocephalic, atraumatic. No pharyngeal erythema. No thyromegaly. CARDIOVASCULAR: S1 and S2 present. No murmurs, rubs, or gallops. PULMONARY: Chest is clear to auscultation, no wheezing or crackles. ABDOMEN: Mild distention with the left lower quadrant abdominal tenderness which is severe, normoactive bowel sounds. No palpable organomegaly. MUSCULOSKELETAL: Right hip surgical site area is red. Appears to be infected present EXTREMITIES: No cyanosis, clubbing, or pedal edema. NEUROLOGICAL: Gross neurological examination did not reveal any focal deficits. SKIN: No rashes. Assessment and plan Sepsis secondary to sigmoid diverticulitis and possible infection of the surgical site area in the right hip. He had a replacement. Patient was started on Zosyn for diverticulitis and daptomycin for a right hip surgical site area with possible infection, patient is on liquid diet General Surgery to evaluate the patient - Right hip surgical site area infection. For which patient is on daptomycin -Recent right hip replacement - History of myasthenia gravis for which patient is on rivastigmine - Hypothyroidism history of thyroid cancer status post thyroidectomy patient is on immunosuppressive therapy, I am not sure why he is on mycophenolate and CellCept DVT prophylaxis: Patient will be started on Lovenox Past Medical History Past Medical History: Cancer, Heart Failure, Hypertension, Osteoarthritis (OA) Additional Past Medical History / Comment(s): MYASTHENIA GRAVIS POST ANESTHESIA WHEN HE BACK SURGERY, NO RESIDUAL. HEADACHES FROM IG INFUSION. 2020 covid, bilateral lung collapsed in ICU FOR 4 WEEKS AT [facility]. 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 THYROID CANCER. GOUT History of Any Multi-Drug Resistant Organisms: None Reported Past Surgical History: Hernia Repair, Orthopedic Surgery Additional Past Surgical History / Comment(s): 03/21/23 left take hip arthroplasty 11/12/18 RIGHT SHOULDER. and left shoulder, right hand surgery, LUMBAR BACK SURGERY FUSION HAS 2 RODS AND CAGES, RIGHT AND LEFT KNEE ARTHROSCOPIC, RIGHT ING,HERNIA X2. PARTIAL THYROIDECTOMY, left hip replacement left knee replaced, Right JANNETTE Past Anesthesia/Blood Transfusion Reactions: No Reported Reaction Additional Past Anesthesia/Blood Transfusion Reaction / Comment(s): MYASTHENIA GRAVIS POST LUMBAR SURGERY. Past Psychological History: Anxiety Smoking Status: Never smoker Past Alcohol Use History: None Reported Past Drug Use History: None Reported - Past Family History Mother Family Medical History: No Reported History Medications and Allergies Home Medications Medication Instructions Recorded Confirmed Type Potassium Chloride [Klor-Con 20] 20 meq PO HS 11/12/15 06/22/24 History Terazosin HCl [Hytrin] 10 mg PO HS 11/12/15 06/22/24 History Calcium/Magnesium/Zinc 1 tab PO HS 10/09/18 06/22/24 History [Reblsyq-Sqzeejqyr-Veot Tablet] Metoprolol Tartrate [Lopressor] 25 mg PO HS 10/09/18 06/22/24 History Cholecalciferol [Vitamin D3 (125 125 mcg PO HS 03/15/23 06/22/24 History Mcg = 5000 Iu)] mycophenolate mofetiL [Cellcept] 1,000 mg PO BID 03/15/23 06/22/24 History Aspirin [Adult Low Dose Aspirin EC] 81 mg PO BID #60 tab 06/07/24 06/22/24 Rx Ondansetron [Zofran] 4 mg PO Q8HR PRN #12 tab 06/07/24 06/22/24 Rx ALPRAZolam [Xanax] 0.5 - 1 mg PO BID PRN 06/22/24 06/22/24 History Acetaminophen-Codeine 300-30mg 1 tab PO Q6H PRN 06/22/24 06/22/24 History [Tylenol w/codeine #3] Amoxicillin 2,000 mg PO ONCE PRN 06/22/24 06/22/24 History Cephalexin [Keflex] 500 mg PO Q12HR 06/22/24 06/22/24 History HYDROcodone/APAP 7.5-325MG [[place] 1 tab PO Q6H PRN 06/22/24 06/22/24 History 7.5-325] Pyridostigmine [place] [Mestinon] 60 mg PO DAILY PRN 06/22/24 06/22/24 History predniSONE [Deltasone] 20 mg PO PANIAGUA 06/22/24 06/22/24 History Allergies Allergy/AdvReac Type Severity Reaction Status Date / Time adhesive tape Allergy skin Verified 06/22/24 09:25 redness Physical Exam Vitals: Vital Signs Temp Pulse Resp BP Pulse Ox 06/22/24 12:48 101.2 F H 76 18 111/66 97 06/22/24 10:03 99.7 F H 79 18 145/69 97 06/22/24 09:00 80 18 135/73 98 06/22/24 05:27 69 16 121/60 96 06/22/24 02:42 71 16 116/62 95 06/22/24 00:00 100.0 F H 06/21/24 23:44 84 16 122/71 98 06/21/24 22:56 101.4 F H 91 18 112/72 97 Intake and Output 06/21/24 06/22/24 06/22/24 22:59 06:59 14:59 Other: Weight 86.183 kg Results CBC & Chem 7: 06/21/24 23:37 06/21/24 23:37 Labs: Abnormal Lab Results - Last 24 Hours (Table) 06/21/24 06/21/24 06/22/24 Range/Units 23:37 23:37 13:11 WBC 16.40 H (4.50-10.00) 10*3/uL RBC 4.38 L (4.40-5.60) 10*6/uL Hct 38.1 L (39.6-50.0) % Immature Gran # 0.07 H (0.00-0.04) 10*3/uL Neutrophils # 14.36 H (1.80-7.70) 10*3/uL Lymphocytes # 0.88 L (0.90-5.00) 10*3/uL PT 12.6 H (10.0-12.5) sec INR 1.2 H (<1.2) Sodium 134 L (137-145) mmol/L BUN 26 H (9-20) mg/dL Glucose 105 H (74-99) mg/dL
[2024-06-22] MEDS ORDERED: Acetaminophen-Codeine 300-30mg TAB PO PRN (14:15)
[2024-06-22] MEDS ORDERED: ALPRAZolam 0.5 MG TAB PO PRN (14:15)
[2024-06-22] MEDS ORDERED: ONDANSETRON ODT 4 MG TAB PO PRN (14:15)
[2024-06-22] MEDS: IBUPROFEN 400 MG TAB PO PRN (14:28)
[2024-06-22] MEDS ORDERED: HYDROmorphone 2 MG/ML 1 ML SYRINGE IVP PRN (15:27)
[2024-06-22] MEDS: DAPTOmycin 350 MG in SODIUM CHLORIDE 0.9% 50 ML IVPB SCH (20:34)
[2024-06-22] MEDS: METOPROLOL TARTRATE 25 MG TAB PO SCH (22:14)
[2024-06-22] MEDS: DOXAZOSIN 4 MG TAB PO SCH (22:15)
[2024-06-22] MEDS: ASPIRIN 81 MG PO SCH (22:26)
[2024-06-22] MEDS: POTASSIUM CHLORIDE ER 20 MEQ TAB.ER PO SCH (22:26)
--- NOTE | 2024-06-22 22:32 | P.CONS ---
History of Present Illness - Reason for Consult Consult date: 06/22/24 ID management diverticulitis, fever Requesting physician: Aristeo Weston - Chief Complaint Fever and abdominal pain x days - History of Present Illness Patient is a 73-year-old with a past medical history significant for heart failure hypertension osteoarthritis myasthenia gravis patient did have a right hip arthroplasty on 06/07/2024 patient apparently has been dealing with fever for the last few days in this patient who did have a also abdominal pain with a CT abdominal pelvis completed in the outpatient setting yesterday which was concerning for diverticulitis with the patient present to the hospital for further evaluation patient also mention he did have some erythema to the right hip incision site which was thought to be reaction to the stitches and he was started on oral Keflex with the patient has been taking before presenting to the hospital patient complaining of mostly fever with rigors and chills has been complaining of pain to the left lower abdominal area describing it to be sharp moderate to severe intensity without radiation did have some nausea but no vomiting no diarrhea constipation also complaining of pain to the right hip surgical site with an area of erythema and some drainage over the last few days with the symptoms the patient has been evaluated on presentation to the hospital patient did have a temperature of 101.4 F patient was mildly tachycardic with heart rate of 91 he was not hypoxic or hypotensive he did have white count of 16.40 with a left shift creatinine 1.09 electrolytes has been normal liver enzymes are normal patient has been started on vancomycin pharmacy to dose and received a dose of Unasyn infectious disease was consulted for further management of antibiotic therapy Review of Systems Positive point and negatives has been mentioned in the HPI, complete review of systems was performed and all other systems are negative Past Medical History Past Medical History: Cancer, Heart Failure, Hypertension, Osteoarthritis (OA) Additional Past Medical History / Comment(s): MYASTHENIA GRAVIS POST ANESTHESIA WHEN HE BACK SURGERY, NO RESIDUAL. HEADACHES FROM IG INFUSION. 2020 covid, bilateral lung collapsed in ICU FOR 4 WEEKS AT [facility]. 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 THYROID CANCER. GOUT History of Any Multi-Drug Resistant Organisms: None Reported Past Surgical History: Hernia Repair, Orthopedic Surgery Additional Past Surgical History / Comment(s): 03/21/23 left take hip arthroplasty 11/12/18 RIGHT SHOULDER. and left shoulder, right hand surgery, LUMBAR BACK SURGERY FUSION HAS 2 RODS AND CAGES, RIGHT AND LEFT KNEE ARTHROSCOPIC, RIGHT ING,HERNIA X2. PARTIAL THYROIDECTOMY, left hip replacement left knee replaced, Right JANNETTE Past Anesthesia/Blood Transfusion Reactions: No Reported Reaction Additional Past Anesthesia/Blood Transfusion Reaction / Comm: MYASTHENIA GRAVIS POST LUMBAR SURGERY. Past Psychological History: Anxiety Smoking Status: Never smoker Past Alcohol Use History: None Reported Past Drug Use History: None Reported - Past Family History Mother Family Medical History: No Reported History Medications and Allergies Home Medications Medication Instructions Recorded Confirmed Type Potassium Chloride [Klor-Con 20] 20 meq PO HS 11/12/15 06/22/24 History Terazosin HCl [Hytrin] 10 mg PO HS 11/12/15 06/22/24 History Calcium/Magnesium/Zinc 1 tab PO HS 10/09/18 06/22/24 History [Efsufzc-Ywkyeazce-Qrre Tablet] Metoprolol Tartrate [Lopressor] 25 mg PO HS 10/09/18 06/22/24 History Cholecalciferol [Vitamin D3 (125 125 mcg PO HS 03/15/23 06/22/24 History Mcg = 5000 Iu)] mycophenolate mofetiL [Cellcept] 1,000 mg PO BID 03/15/23 06/22/24 History Aspirin [Adult Low Dose Aspirin EC] 81 mg PO BID #60 tab 06/07/24 06/22/24 Rx Ondansetron [Zofran] 4 mg PO Q8HR PRN #12 tab 06/07/24 06/22/24 Rx ALPRAZolam [Xanax] 0.5 - 1 mg PO BID PRN 06/22/24 06/22/24 History Acetaminophen-Codeine 300-30mg 1 tab PO Q6H PRN 06/22/24 06/22/24 History [Tylenol w/codeine #3] Amoxicillin 2,000 mg PO ONCE PRN 06/22/24 06/22/24 History Cephalexin [Keflex] 500 mg PO Q12HR 06/22/24 06/22/24 History HYDROcodone/APAP 7.5-325MG [[place] 1 tab PO Q6H PRN 06/22/24 06/22/24 History 7.5-325] Pyridostigmine [place] [Mestinon] 60 mg PO DAILY PRN 06/22/24 06/22/24 History predniSONE [Deltasone] 20 mg PO PANIAGUA 06/22/24 06/22/24 History Allergies Allergy/AdvReac Type Severity Reaction Status Date / Time adhesive tape Allergy skin Verified 06/22/24 09:25 redness Physical Exam Vitals: Vital Signs Temp Pulse Resp BP Pulse Ox 06/22/24 10:03 99.7 F H 79 18 145/69 97 06/22/24 09:00 80 18 135/73 98 06/22/24 05:27 69 16 121/60 96 06/22/24 02:42 71 16 116/62 95 06/22/24 00:00 100.0 F H 06/21/24 23:44 84 16 122/71 98 06/21/24 22:56 101.4 F H 91 18 112/72 97 Intake and Output 06/21/24 06/22/24 06/22/24 22:59 06:59 14:59 Other: Weight 86.183 kg GENERAL DESCRIPTION: Elderly male lying in bed, no distress. No tachypnea or ac cessory muscle of respiration use. HEENT: Shows Pallor , no scleral icterus. Oral mucous membrane is dry. NECK: Trachea central, no thyromegaly. LUNGS: Unlabored breathing. Clear to auscultation anteriorly. No wheeze or crackle. HEART: S1, S2, regular rate and rhythm. No loud murmur ABDOMEN: Soft, lower quadrant tenderness no guarding rigidity EXTREMITIES: Right anterior hip surgical incision in the middle part did have some erythema no drainage was noticed SKIN: No rash, no masses palpable. NEUROLOGICAL: The patient is awake, alert, oriented x3, mood and affect normal. Results CBC & Chem 7: 06/23/24 03:41 06/23/24 03:41 Labs: Abnormal Lab Results - Last 24 Hours (Table) 06/21/24 06/21/24 Range/Units 23:37 23:37 WBC 16.40 H (4.50-10.00) 10*3/uL RBC 4.38 L (4.40-5.60) 10*6/uL Hct 38.1 L (39.6-50.0) % Immature Gran # 0.07 H (0.00-0.04) 10*3/uL Neutrophils # 14.36 H (1.80-7.70) 10*3/uL Lymphocytes # 0.88 L (0.90-5.00) 10*3/uL Sodium 134 L (137-145) mmol/L BUN 26 H (9-20) mg/dL Glucose 105 H (74-99) mg/dL Assessment and Plan (1) Sepsis Current Visit: Yes Status: Acute Code(s): A41.9 - SEPSIS, UNSPECIFIED ORGANISM SNOMED Code(s): 44286246 (2) Diverticulitis Current Visit: Yes Status: Acute Code(s): K57.92 - DVTRCLI OF INTEST, PART UNSP, W/O PERF OR ABSCESS W/O BLEED SNOMED Code(s): 003056231 (3) Surgical site infection Current Visit: Yes Status: Acute Code(s): T81.49XA - INFECTION FOLLOWING A PROCEDURE, OTHER SURGICAL SITE, INIT SNOMED Code(s): 01648181 Plan: 1patient presented hospital with sepsis in this patient who did have fever tachycardia elevated white count meeting criteria for SIRS/sepsis source is likely acute diverticulitis however the patient also have recent right hip arthroplasty with the middle part of incision did have some erythema and the patient mention some drainage possible component of surgical site infection not entirely excluded and will need to cover for both the gram-positive as well as gram-negative enteric pathogen 2-blood culture as well as culture from the right hip surgical site has been pain results will be followed 3-discontinue vancomycin 4-will start the patient on Zosyn 3.375 g every 8 hours and daptomycin 4 mg/kg daily while waiting for the workup to be completed We will follow on clinical condition and cultures to further adjust medication if needed Thank you for this consultation we will follow the patient along with you Dictation was produced using [employer] dictation software. please excuse any grammatical, word or spelling errors. Time with Patient: Greater than 30
[2024-06-23] MEDS: ENOXAPARIN 40 MG/0.4 ML SYRINGE SQ SCH (08:12)
[2024-06-23 10:03] LABS: HCT 35.3 % (39.6-50.0); HGB 11.4 g/dL (13.0-17.0); MCH 29.2 pg (27.0-32.0); MCHC 32.3 g/dL (32.0-37.0); MCV 90.5 FL (80.0-97.0); NRBC Per 100 WBC 0 X 10*3/uL (0.00-0.01); Platelet Count 274 X 10*3/uL (140-440); RDW 14.1 % (11.5-14.5); WBC 10.51 X 10*3/uL (4.50-10.00)
--- NOTE | 2024-06-23 10:49 | P.GSCN ---
History of Present Illness Consult date: 06/23/24 Reason for Consult: Diverticulitis History of present illness: 73-year-old male came to the hospital after outpatient CAT scan showed diverticu litis. Patient also was noted to have a fever at home as high as 103. Here in the hospital Tmax 101.8. Patient was being followed for a surgical site infection involving a recent right hip replacement. Patient apparently says he had some purulent drainage coming from a wound along the incision site. The patient developed left lower quadrant abdominal pain about 2 to 3 days ago. Again outpatient CAT scan was performed showing mild diverticulitis without abscess or significant phlegmon formation. No evidence of pneumoperitoneum. Patient also has a fat filled left inguinal hernia suspected on CAT scan. Patient says today his pain in the right hip and the abdomen are similar. They are moderate in degree. Was admitted yesterday with IV antibiotic therapy. White blood cell count on arrival 16.4 today 10.5. Heart rate is 85, BP 108/62 on recent check. No history of diverticulitis previously. Last colonoscopy 10 years ago or so. No rectal bleeding or melena. Did have some constipation after the hip surgery and took some stool softeners for that. Review of Systems The patient denies any acute changes in vision or hearing, no dysphagia or odynophagia, no chest pain or shortness of breath, no dysuria or hematuria, no headache, no runny nose, no rectal bleeding or melena, no unexplained weight loss Past Medical History Past Medical History: Cancer, Heart Failure, Hypertension, Osteoarthritis (OA) Additional Past Medical History / Comment(s): MYASTHENIA GRAVIS POST ANESTHESIA WHEN HE BACK SURGERY, NO RESIDUAL. HEADACHES FROM IG INFUSION. 2020 covid, bilateral lung collapsed in ICU FOR 4 WEEKS AT [facility]. 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 THYROID CANCER. GOUT History of Any Multi-Drug Resistant Organisms: None Reported Past Surgical History: Hernia Repair, Orthopedic Surgery Additional Past Surgical History / Comment(s): 03/21/23 left take hip arthroplasty 11/12/18 RIGHT SHOULDER. and left shoulder, right hand surgery, LUMBAR BACK SURGERY FUSION HAS 2 RODS AND CAGES, RIGHT AND LEFT KNEE ARTHROSCOPIC, RIGHT ING,HERNIA X2. PARTIAL THYROIDECTOMY, left hip replacement left knee replaced, Right JANNETTE Past Anesthesia/Blood Transfusion Reactions: No Reported Reaction Additional Past Anesthesia/Blood Transfusion Reaction / Comm: MYASTHENIA GRAVIS POST LUMBAR SURGERY. Past Psychological History: Anxiety Smoking Status: Never smoker Past Alcohol Use History: None Reported Past Drug Use History: None Reported - Past Family History Mother Family Medical History: No Reported History Medications and Allergies Home Medications Medication Instructions Recorded Confirmed Type Potassium Chloride [Klor-Con 20] 20 meq PO HS 11/12/15 06/22/24 History Terazosin HCl [Hytrin] 10 mg PO HS 11/12/15 06/22/24 History Calcium/Magnesium/Zinc 1 tab PO HS 10/09/18 06/22/24 History [Riikudp-Pfwgtisfw-Brgj Tablet] Metoprolol Tartrate [Lopressor] 25 mg PO HS 10/09/18 06/22/24 History Cholecalciferol [Vitamin D3 (125 125 mcg PO HS 03/15/23 06/22/24 History Mcg = 5000 Iu)] mycophenolate mofetiL [Cellcept] 1,000 mg PO BID 03/15/23 06/22/24 History Aspirin [Adult Low Dose Aspirin EC] 81 mg PO BID #60 tab 06/07/24 06/22/24 Rx Ondansetron [Zofran] 4 mg PO Q8HR PRN #12 tab 06/07/24 06/22/24 Rx ALPRAZolam [Xanax] 0.5 - 1 mg PO BID PRN 06/22/24 06/22/24 History Acetaminophen-Codeine 300-30mg 1 tab PO Q6H PRN 06/22/24 06/22/24 History [Tylenol w/codeine #3] Amoxicillin 2,000 mg PO ONCE PRN 06/22/24 06/22/24 History Cephalexin [Keflex] 500 mg PO Q12HR 06/22/24 06/22/24 History HYDROcodone/APAP 7.5-325MG [[place] 1 tab PO Q6H PRN 06/22/24 06/22/24 History 7.5-325] Pyridostigmine [place] [Mestinon] 60 mg PO DAILY PRN 06/22/24 06/22/24 History predniSONE [Deltasone] 20 mg PO PANIAGUA 06/22/24 06/22/24 History Allergies Allergy/AdvReac Type Severity Reaction Status Date / Time adhesive tape Allergy skin Verified 06/22/24 09:25 redness Surgical - Exam Vital Signs Temp Pulse Resp BP Pulse Ox 101.4 F H 91 18 112/72 97 06/21/24 22:56 06/21/24 22:56 06/21/24 22:56 06/21/24 22:56 06/21/24 22:56 Physical exam: General: Well-developed, well-nourished HEENT: Normocephalic, sclerae nonicteric Abdomen: Mild to moderate left lower quadrant tenderness, no peritoneal signs, nondistended Extremities: Right hip incision with small area of dehiscence centrally, mild erythema, no active drainage, mild tenderness there Neuro: Alert and oriented Results - Labs 06/23/24 03:41 06/21/24 23:37 Abnormal Lab Results - Last 24 Hours (Table) 06/22/24 06/23/24 Range/Units 13:11 03:41 WBC 10.51 H (4.50-10.00) X 10*3/uL RBC 3.90 L (4.40-5.60) X 10*6/uL Hgb 11.4 L (13.0-17.0) g/dL Hct 35.3 L (39.6-50.0) % PT 12.6 H (10.0-12.5) sec INR 1.2 H (<1.2) Microbiology - Last 24 Hours (Table) 06/22/24 01:27 Gram Stain - Preliminary Leg - Right Wound Culture - Preliminary Assessment and Plan (1) Diverticulitis Narrative/Plan: 73-year-old male with diverticulitis and surgical site infection along with associated fevers. Continue broad-spectrum antibiotics. Appreciate infectious disease input regarding this complicated case. Patient still has moderate tenderness on exam despite antibiotics starting yesterday. Will monitor closely. If the patient is still having fevers or significant pain tomorrow we will repeat CAT scan abdomen pelvis. Clinical significance of the CAT scan findings were reviewed with the patient. Will follow closely. Current Visit: Yes Status: Acute Code(s): K57.92 - DVTRCLI OF INTEST, PART UNSP, W/O PERF OR ABSCESS W/O BLEED SNOMED Code(s): 786002021
[2024-06-23 11:04] LABS: Blood Urea Nitrogen 14.2 mg/dL (9.0-27.0); Calcium 8.4 mg/dL (8.7-10.3); Carbon Dioxide 24.6 mmol/L (21.6-31.8); Chloride 104 mmol/L (96-109); Glucose 98 mg/dL (70-110); Potassium 4.3 mmol/L (3.5-5.5); Sodium 136 mmol/L (135-145)
--- NOTE | 2024-06-23 11:08 | P.PN ---
Subjective Progress Note Date: 06/23/24 Principal diagnosis: Status post right total hip arthroplasty with superficial wound infection versus allergic reaction to glue/tape. The patient notes he does have some mild soreness in the right hip and knee. He is able to weight-bear. He also complains of abdominal pain. Objective - Vital Signs Vital signs: Vital Signs Temp 99.6 F 06/23/24 07:00 Pulse 85 06/23/24 07:00 Resp 18 06/23/24 07:00 BP 108/62 06/23/24 07:00 Pulse Ox 95 06/23/24 07:00 FiO2 Intake & Output 06/22/24 06/23/24 06/23/24 18:59 06:59 18:59 Output Total 200 Balance -200 Weight 86.183 kg Output: Urine 200 Other: # Voids 2 - Exam Right hip incision with mild erythema about the central portion along with 3 x 5 mm dehiscence. Minimal serous drainage is noted. Mild tenderness is noted over the incision. No gross fluctuance is present. He has painless logroll of the right hip. He is tender about the right knee along the medial joint line. He has a mild effusion. Homans is negative right lower extremity. His distal n eurovascular appears intact in the right lower extremity. - Constitutional General appearance: Present: no acute distress - Labs CBC & Chem 7: 06/23/24 03:41 06/23/24 03:41 Labs: Abnormal Lab Results - Last 24 Hours (Table) 06/22/24 06/23/24 06/23/24 Range/Units 13:11 03:41 03:41 WBC 10.51 H (4.50-10.00) X 10*3/uL RBC 3.90 L (4.40-5.60) X 10*6/uL Hgb 11.4 L (13.0-17.0) g/dL Hct 35.3 L (39.6-50.0) % PT 12.6 H (10.0-12.5) sec INR 1.2 H (<1.2) Calcium 8.4 L (8.7-10.3) mg/dL Microbiology - Last 24 Hours (Table) 06/22/24 01:27 Gram Stain - Preliminary Leg - Right Wound Culture - Preliminary Assessment and Plan Assessment: Status post right total hip arthroplasty with superficial wound infection versus allergic reaction Diverticulosis Possible gouty flareup right knee Plan: I talked to the patient and his regarding his condition regarding his right hip. At this point we will continue with IV antibiotics. We will continue to monitor clinically.
[2024-06-23] MEDS: COLCHICINE 0.6 MG EACH PO SCH (11:37)
--- NOTE | 2024-06-23 12:03 | P.PN ---
Subjective 73-year-old male was brought in by his because of his severe left lower quadrant abdominal pain and diverticulitis for which patient on oral antibiotics as an outpatient patient is severe sigmoid diverticulitis without any abscess. Patient also had a hip surgery 2 weeks ago patient is surgical site appears to be infected because of which patient was started on daptomycin here patient had fever yesterday patient was eval by infectious disease and daptomycin is added to the Zosyn because of the possible surgical site area infection. Orthopedics will evaluate the patient. Orthopedic surgery recommending incision and drainage of the surgical site area. Patient also has left inguinal hernia had multiple surgeries in the past General Surgery. Will evaluate the patient as well 06/23/2024 Patient's right hip area redness almost completely resolved with the daptomycin. Orthopedic surgery is not planning on any incision and drainage as patient has significant improvement and patient does not have swelling in the joint. P atient still has left lower quadrant abdominal tenderness which is still significant patient remains on Zosyn. REVIEW OF SYSTEMS: All other systems are negative except those mentioned in the HPI PHYSICAL EXAMINATION: GENERAL: The patient is alert and oriented x3, not in any acute distress. Well developed, well nourished. HEENT: Pupils are round and equally reacting to light. EOMI. No scleral icterus. No conjunctival pallor. Normocephalic, atraumatic. No pharyngeal erythema. No thyromegaly. CARDIOVASCULAR: S1 and S2 present. No murmurs, rubs, or gallops. PULMONARY: Chest is clear to auscultation, no wheezing or crackles. ABDOMEN: Mild distention with the left lower quadrant abdominal tenderness which is severe, normoactive bowel sounds. No palpable organomegaly. MUSCULOSKELETAL: Right hip surgical site area is red. Appears to be infected present EXTREMITIES: No cyanosis, clubbing, or pedal edema. NEUROLOGICAL: Gross neurological examination did not reveal any focal deficits. SKIN: No rashes. Assessment and plan Sepsis secondary to sigmoid diverticulitis and possible infection of the surgical site area in the right hip. He had a replacement. Patient was started on Zosyn for diverticulitis and daptomycin for a right hip surgical site area infection, patient is on liquid diet General Surgery to evaluate the patient - Right hip surgical site area infection. For which patient is on daptomycin given improvement in redness of the surgical site area. -Recent right hip replacement - History of myasthenia gravis for which patient is on rivastigmine - Hypothyroidism history of thyroid cancer status post thyroidectomy patient is on immunosuppressive therapy, I am not sure why he is on mycophenolate and CellCept DVT prophylaxis: Patient will be started on Lovenox Objective - Vital Signs Vital signs: Vital Signs Temp 99.6 F 06/23/24 07:00 Pulse 85 06/23/24 07:00 Resp 18 06/23/24 07:00 BP 108/62 06/23/24 07:00 Pulse Ox 95 06/23/24 07:00 FiO2 Intake & Output 06/22/24 06/23/24 06/23/24 18:59 06:59 18:59 Output Total 200 Balance -200 Weight 86.183 kg Output: Urine 200 Other: # Voids 2 - Labs CBC & Chem 7: 06/23/24 03:41 06/23/24 03:41 Labs: Abnormal Lab Results - Last 24 Hours (Table) 06/22/24 06/23/24 06/23/24 Range/Units 13:11 03:41 03:41 WBC 10.51 H (4.50-10.00) X 10*3/uL RBC 3.90 L (4.40-5.60) X 10*6/uL Hgb 11.4 L (13.0-17.0) g/dL Hct 35.3 L (39.6-50.0) % PT 12.6 H (10.0-12.5) sec INR 1.2 H (<1.2) Calcium 8.4 L (8.7-10.3) mg/dL Microbiology - Last 24 Hours (Table) 06/22/24 01:27 Gram Stain - Preliminary Leg - Right Wound Culture - Preliminary
[2024-06-23] MEDS: predniSONE 20 MG TAB PO SCH (15:49)
--- NOTE | 2024-06-23 23:20 | P.PN ---
Subjective Progress Note Date: 06/23/24 Principal diagnosis: Reason for follow-up is diverticulitis and right hip surgical site infection Patient is a 73-year-old with a past medical history significant for heart failure hypertension osteoarthritis myasthenia gravis patient did have a right hip arthroplasty on 06/07/2024 patient apparently has been dealing with fever and outpatient CT was positive for diverticulitis with the patient has been admitted to hospital. On today's evaluation that is 06/23/2024, Patient did have improvement in his fever pattern and is afebrile today, patient is currently on room air and denies having any shortness of breath, the patient denies any chest pain or cough, the patient denies any nausea vomiting circumventing on left side abdominal pain but controlled with the pain medication and right hip pain and redness has decreased no drainage. Patient white count is down to 10.51, creatinine is 1.0 cultures currently pending Objective - Vital Signs Vital signs: Vital Signs Temp 98.8 F 06/23/24 14:18 Pulse 81 06/23/24 14:18 Resp 18 06/23/24 14:18 BP 116/64 06/23/24 14:18 Pulse Ox 97 06/23/24 14:18 FiO2 Intake & Output 06/23/24 06/23/24 06/24/24 06:59 18:59 06:59 Output Total 200 Balance -200 Output: Urine 200 Other: # Voids 2 0 - Exam GENERAL DESCRIPTION: An elderly male lying in bed in no distress RESPIRATORY SYSTEM: Unlabored breathing , decreased breath sounds at bases HEART: S1 S2 regular rate and rhythm , ABDOMEN: Soft , left-sided tenderness EXTREMITIES: Right hip incision with less erythema - Labs CBC & Chem 7: 06/23/24 03:41 06/23/24 03:41 Labs: Abnormal Lab Results - Last 24 Hours (Table) 06/23/24 06/23/24 06/23/24 Range/Units 03:41 03:41 03:41 WBC 10.51 H (4.50-10.00) X 10*3/uL RBC 3.90 L (4.40-5.60) X 10*6/uL Hgb 11.4 L (13.0-17.0) g/dL Hct 35.3 L (39.6-50.0) % ESR 31 H (0-20) mm/Hr Calcium 8.4 L (8.7-10.3) mg/dL C-Reactive Protein (0.00-0.80) mg/dL 06/23/24 Range/Units 03:41 WBC (4.50-10.00) X 10*3/uL RBC (4.40-5.60) X 10*6/uL Hgb (13.0-17.0) g/dL Hct (39.6-50.0) % ESR (0-20) mm/Hr Calcium (8.7-10.3) mg/dL C-Reactive Protein 20.40 H (0.00-0.80) mg/dL Microbiology - Last 24 Hours (Table) 06/21/24 23:37 Blood Culture - Preliminary Blood 06/22/24 01:27 Gram Stain - Preliminary Leg - Right Wound Culture - Preliminary Assessment and Plan (1) Sepsis Current Visit: Yes Status: Acute Code(s): A41.9 - SEPSIS, UNSPECIFIED ORGANISM SNOMED Code(s): 93233489 (2) Diverticulitis Current Visit: Yes Status: Acute Code(s): K57.92 - DVTRCLI OF INTEST, PART UNSP, W/O PERF OR ABSCESS W/O BLEED SNOMED Code(s): 462822637 (3) Surgical site infection Current Visit: Yes Status: Acute Code(s): T81.49XA - INFECTION FOLLOWING A PROCEDURE, OTHER SURGICAL SITE, INIT SNOMED Code(s): 71274980 Plan: 1patient presented hospital with sepsis in this patient who did have fever tachycardia elevated white count meeting criteria for SIRS/sepsis source is lik sergio acute diverticulitis however the patient also have recent right hip arthroplasty with the middle part of incision did have some erythema and the patient mention some drainage possible component of surgical site infection not entirely excluded and will need to cover for both the gram-positive as well as gram-negative enteric pathogen 2-blood culture as well as culture from the right hip surgical site has been obtained results are currently pending 3-patient did have resolution of his fever white count is trending down to continue Zosyn 3.375 g every 8 hours and daptomycin 4 mg/kg daily while waiting for the workup to be completed Family the bedside question also Dictation was produced using [employer] software. please excuse any grammatical, word or spelling errors.
[2024-06-24] MEDS: ONDANSETRON 4 MG/2 ML VIAL IVP PRN (04:17)
[2024-06-24 08:47] LABS: HCT 34.7 % (39.6-50.0); HGB 11.4 g/dL (13.0-17.0); MCH 29.5 pg (27.0-32.0); MCHC 32.9 g/dL (32.0-37.0); MCV 89.9 FL (80.0-97.0); Mean Platelet Volume 10.2 FL (9.5-12.2); NRBC Per 100 WBC 0 X 10*3/uL (0.00-0.01); Platelet Count 339 X 10*3/uL (140-440); RBC 3.86 X 10*6/uL (4.40-5.60); RDW 13.8 % (11.5-14.5); WBC 11.04 X 10*3/uL (4.50-10.00)
[2024-06-24 08:48] LABS: Basophils # (A) 0.02 X 10*3/uL (0.00-0.10); Basophils % (A) 0.2 %; Eosinophils # (A) 0.01 X 10*3/uL (0.04-0.35); Eosinophils % (A) 0.1 %; Lymphocytes # (A) 0.61 X 10*3/uL (0.90-5.00); Lymphocytes % (A) 5.5 %; Monocytes # (A) 0.59 X 10*3/uL (0.20-1.00); Monocytes % (A) 5.3 %; Neutrophils # (A) 9.74 X 10*3/uL (1.80-7.70); Neutrophils % (A) 88.3 %
[2024-06-24 08:51] LABS: BUN/Creat Ratio 13.33 Ratio (12.00-20.00); Calcium 8.8 mg/dL (8.7-10.3); Carbon Dioxide 23.1 mmol/L (21.6-31.8); Chloride 103 mmol/L (96-109); Glucose 132 mg/dL (70-110); Potassium 4.6 mmol/L (3.5-5.5); Sodium 137 mmol/L (135-145)
--- NOTE | 2024-06-24 12:38 | P.PN ---
Subjective Progress Note Date: 06/24/24 Principal diagnosis: fever; diverticulitis; left sided hernia; right hip pain s/p recent right total hip arthroplasty Patient seen at [facility] this morning with dressing over right hip. Patient states swelling has improved over past couple days. He states has not had any drainage today from incision. States hjkrystal still has left sided abdominal pain. Mentioned gen surg discussed ordering further imaging of abdomen. ID following cultures. Objective - Vital Signs Vital signs: Vital Signs Temp 98.4 F 06/24/24 07:01 Pulse 58 L 06/24/24 07:35 Resp 18 06/24/24 07:35 BP 105/95 06/24/24 07:01 Pulse Ox 95 06/24/24 07:01 FiO2 Intake & Output 06/23/24 06/24/24 06/24/24 18:59 06:59 18:59 Other: # Voids 0 2 - Exam Dressing present over the anterior incision on the right hip. Some mild swelling near incision on right anterior hip. Negative for any drainage. Scabbing present. Sensation is equal, symmetric, by intact throughout the extremities on exam. Patient does have fair amount of tenderness to palp near the incision on the right hip and some mild tenderness to palp extending laterally over the right hip. Patient does have some moderate tenderness to patient over the medial patellar facet and over the medial femoral epicondyle on the right knee. Nontender on rest of exam. Patient does have some limited range of motion in the right hip secondary to stiffness and referred pain due to the recent surgery. Patient does have good range of motion throughout the left lower extremity on exam in bilateral upper extremities on exam.4-/5 in right lower extremity in all major motor groups. 4+/5 in left lower extremity and bilateral upper extremities in all major motor groups. Radial pulse intact, 2+ bilaterally. Cap refill under 3 seconds in digits of upper extremities. Negative Homans bilaterally. Negative clonus bilaterally. - Labs CBC & Chem 7: 06/24/24 02:41 06/24/24 02:41 Labs: Abnormal Lab Results - Last 24 Hours (Table) 06/23/24 06/23/24 06/24/24 Range/Units 03:41 03:41 02:41 WBC (4.50-10.00) X 10*3/uL RBC (4.40-5.60) X 10*6/uL Hgb (13.0-17.0) g/dL Hct (39.6-50.0) % Immature Gran # (0.00-0.04) X 10*3/uL Neutrophils # (1.80-7.70) X 10*3/uL Lymphocytes # (0.90-5.00) X 10*3/uL Eosinophils # (0.04-0.35) X 10*3/uL ESR 31 H (0-20) mm/Hr Glucose 132 H (70-110) mg/dL C-Reactive Protein 20.40 H (0.00-0.80) mg/dL 06/24/24 Range/Units 02:41 WBC 11.04 H (4.50-10.00) X 10*3/uL RBC 3.86 L (4.40-5.60) X 10*6/uL Hgb 11.4 L (13.0-17.0) g/dL Hct 34.7 L (39.6-50.0) % Immature Gran # 0.07 H (0.00-0.04) X 10*3/uL Neutrophils # 9.74 H (1.80-7.70) X 10*3/uL Lymphocytes # 0.61 L (0.90-5.00) X 10*3/uL Eosinophils # 0.01 L (0.04-0.35) X 10*3/uL ESR (0-20) mm/Hr Glucose (70-110) mg/dL C-Reactive Protein (0.00-0.80) mg/dL Microbiology - Last 24 Hours (Table) 06/22/24 01:27 Gram Stain - Final Leg - Right Wound Culture - Final 06/21/24 23:37 Blood Culture - Preliminary Blood Assessment and Plan Assessment: 1. History of recent direct anterior right total hip arthroplasty; fever; diverticulitis; history of multiple hernia repairs Plan: 1. History of recent direct anterior right total hip arthroplasty; fever; diverticulitis;hernia; history of multiple hernia repairs -CT of the abdomen does reveal diverticulitis as well as hernia on the left side. Patient does have history of recent right total hip arthroplasty. WBC at 11, trending down. Decreased swelling and erythema surrounding right hipincison. No drainage. No plsan for orthopedic surgery at this time. Recommend continued conservative measures with IV abx. Abx per ID. cultures pending. Patient currently on vancomycin due to fever. General surgery following due to fever, diverticultiis and left sided hernia. Patient may weight-bear as tolerated with a walker. Pain medication as needed. We will continue to follow patient during stay in hospital. 2. Appreciate medical, general surgery, ID management 3. Pain management - tylenol with codeine 4. DVT prophylaxis - mechanical 5. GI prophylaxis - senna 6. PT/OT -weightbearing as tolerated with walker 7. Encourage incentive spirometer use Time with Patient: Less than 30
[2024-06-24] MEDS: Acetaminophen-Codeine 300-30mg TAB PO PRN (12:50)
--- NOTE | 2024-06-24 13:04 | P.PN ---
Subjective Progress Note Date: 06/24/24 SURGICAL PROGRESS NOTE CHIEF COMPLAINT: Abdominal pain HISTORY OF PRESENT ILLNESS: Patient reports abdominal pain is improving after his large bowel movement yesterday. He denies any nausea or vomiting. Tolerating clear liquids. Patient also reports improvement in his right hip and knee. Afebrile. WBC is up from 10.5-11.04 PHYSICAL EXAM: VITAL SIGNS: Reviewed. GENERAL: Well-developed in no acute distress. ABDOMEN: Soft. Nondistended. Mild tenderness left lower quadrant. Extremities: right anterior hip incision decreased erythema. No significant drainage. Scabbing noted at incision site. Swelling noted NEUROLOGIC: Alert and oriented. Cranial nerves II through XII grossly intact. ASSESSMENT: 1. Acute diverticulitis 2. Fat filled left inguinal hernia 3. Right hip surgical site infection PLAN: - Advance diet to full liquids - Continue antibiotics - Orthopedic service recommending conservative management for the right hip surgical site infection Physician Sorting And Folding Supervisor note has been reviewed by physician. Signing provider agrees with the documented findings, assessment, and plan of care. Objective - Vital Signs Vital signs: Vital Signs Temp 98.4 F 06/24/24 07:01 Pulse 58 L 06/24/24 07:35 Resp 18 06/24/24 07:35 BP 105/95 06/24/24 07:01 Pulse Ox 95 06/24/24 07:01 FiO2 Intake & Output 06/23/24 06/24/24 06/24/24 18:59 06:59 18:59 Other: # Voids 0 2 - Labs CBC & Chem 7: 06/24/24 02:41 06/24/24 02:41 Labs: Abnormal Lab Results - Last 24 Hours (Table) 06/23/24 06/23/24 06/24/24 Range/Units 03:41 03:41 02:41 WBC (4.50-10.00) X 10*3/uL RBC (4.40-5.60) X 10*6/uL Hgb (13.0-17.0) g/dL Hct (39.6-50.0) % Immature Gran # (0.00-0.04) X 10*3/uL Neutrophils # (1.80-7.70) X 10*3/uL Lymphocytes # (0.90-5.00) X 10*3/uL Eosinophils # (0.04-0.35) X 10*3/uL ESR 31 H (0-20) mm/Hr Glucose 132 H (70-110) mg/dL C-Reactive Protein 20.40 H (0.00-0.80) mg/dL 06/24/24 Range/Units 02:41 WBC 11.04 H (4.50-10.00) X 10*3/uL RBC 3.86 L (4.40-5.60) X 10*6/uL Hgb 11.4 L (13.0-17.0) g/dL Hct 34.7 L (39.6-50.0) % Immature Gran # 0.07 H (0.00-0.04) X 10*3/uL Neutrophils # 9.74 H (1.80-7.70) X 10*3/uL Lymphocytes # 0.61 L (0.90-5.00) X 10*3/uL Eosinophils # 0.01 L (0.04-0.35) X 10*3/uL ESR (0-20) mm/Hr Glucose (70-110) mg/dL C-Reactive Protein (0.00-0.80) mg/dL Microbiology - Last 24 Hours (Table) 06/22/24 01:27 Gram Stain - Final Leg - Right Wound Culture - Final 06/21/24 23:37 Blood Culture - Preliminary Blood
--- NOTE | 2024-06-24 15:17 | P.PN ---
Subjective Progress Note Date: 06/24/24 73-year-old male was brought in by his because of his severe left lower quadrant abdominal pain and diverticulitis for which patient on oral antibiotics as an outpatient patient is severe sigmoid diverticulitis without any abscess. Patient also had a hip surgery 2 weeks ago patient is surgical site appears to be infected because of which patient was started on daptomycin here patient had fever yesterday patient was eval by infectious disease and daptomycin is added to the Zosyn because of the possible surgical site area infection. Orthopedics will evaluate the patient. Orthopedic surgery recommending incision and drainage of the surgical site area. Patient also has left inguinal hernia had multiple surgeries in the past General Surgery. Will evaluate the patient as well 06/23/2024 Patient's right hip area redness almost completely resolved with the daptomycin. Orthopedic surgery is not planning on any incision and drainage as patient has significant improvement and patient does not have swelling in the joint. Patient still has left lower quadrant abdominal tenderness which is still significant patient remains on Zosyn. 06/24/2024 Patient is evaluated in follow up on the medical floor. Patient continues on IV daptomycin and IV Zosyn. His abdomen is less tender however he continues to have some diarrhea. He is tolerating a liquid diet at this time. Labs today reveal white blood cell count 1.04, hemoglobin 1.4, sodium of 137 potassium 4.6, BUN of 12 creatinine 0.9. Review of Systems Constitutional: Denied any fatigue denied any fever. Cardio vascular: denied any chest pain, palpitations Gastrointestinal: denied any nausea, vomiting, diarrhea Pulmonary: Denied any shortness of breath cough Neurologic denied any new focal deficits All inpatient medications were reviewed and appropriate changes in these medications as dictated in the interval history and assessment and plan. PHYSICAL EXAMINATION: GENERAL: The patient is alert and oriented x3, not in any acute distress. Well developed, well nourished. HEENT: Pupils are round and equally reacting to light. EOMI. No scleral icterus. No conjunctival pallor. Normocephalic, atraumatic. No pharyngeal erythema. No thyromegaly. CARDIOVASCULAR: S1 and S2 present. No murmurs, rubs, or gallops. PULMONARY: Chest is clear to auscultation, no wheezing or crackles. ABDOMEN: Mild distention with the left lower quadrant abdominal tenderness which is severe, normoactive bowel sounds. No palpable organomegaly. MUSCULOSKELETAL: Right hip surgical site area is red. Appears to be infected present EXTREMITIES: No cyanosis, clubbing, or pedal edema. NEUROLOGICAL: Gross neurological examination did not reveal any focal deficits. SKIN: No rashes. Assessment and plan -Sepsis secondary to sigmoid diverticulitis and possible infection of the surgical site area in the right hip. He had a replacement. Patient was started on Zosyn for diverticulitis and daptomycin for a right hip surgical site area infection, patient is on liquid diet General Surgery to evaluate the patient - Right hip surgical site area infection. For which patient is on daptomycin given improvement in redness of the surgical site area. -Recent right hip replacement - History of myasthenia gravis for which patient is on rivastigmine - Hypothyroidism history of thyroid cancer status post thyroidectomy patient is on immunosuppressive therapy DVT prophylaxis: Patient will be started on Lovenox The impression and plan of care has been dictated by Lissa Abbott Nurse Practitioner as directed. Dr. Wale MD I have performed a history and physical examination and medical decision making of this patient, discussed the same with the dictator, and agree with the dictators assessment and plan as written, documented as a scribe. Based on total visit time, I have performed more than 50% of this visit. Objective - Vital Signs Vital signs: Vital Signs Temp 97.6 F 06/24/24 14:55 Pulse 60 06/24/24 14:55 Resp 20 06/24/24 14:55 BP 125/71 06/24/24 14:55 Pulse Ox 94 L 06/24/24 14:55 FiO2 Intake & Output 06/23/24 06/24/24 06/24/24 18:59 06:59 18:59 Other: # Voids 0 2 - Labs CBC & Chem 7: 06/24/24 02:41 06/24/24 02:41 Labs: Abnormal Lab Results - Last 24 Hours (Table) 06/23/24 06/24/24 06/24/24 Range/Units 03:41 02:41 02:41 WBC 11.04 H (4.50-10.00) X 10*3/uL RBC 3.86 L (4.40-5.60) X 10*6/uL Hgb 11.4 L (13.0-17.0) g/dL Hct 34.7 L (39.6-50.0) % Immature Gran # 0.07 H (0.00-0.04) X 10*3/uL Neutrophils # 9.74 H (1.80-7.70) X 10*3/uL Lymphocytes # 0.61 L (0.90-5.00) X 10*3/uL Eosinophils # 0.01 L (0.04-0.35) X 10*3/uL Glucose 132 H (70-110) mg/dL C-Reactive Protein 20.40 H (0.00-0.80) mg/dL Microbiology - Last 24 Hours (Table) 06/21/24 23:37 Blood Culture - Preliminary Blood 06/22/24 01:27 Gram Stain - Final Leg - Right Wound Culture - Final Assessment and Plan Time with Patient: Less than 30
--- NOTE | 2024-06-24 21:30 | P.PN ---
Subjective Progress Note Date: 06/24/24 Principal diagnosis: Reason for follow-up is diverticulitis and right hip surgical site infection Patient is a 73-year-old with a past medical history significant for heart failure hypertension osteoarthritis myasthenia gravis patient did have a right hip arthroplasty on 06/07/2024 patient apparently has been dealing with fever and outpatient CT was positive for diverticulitis with the patient has been admitted to hospital. On today's evaluation that is 06/24/2024, patient has been afebrile, patient is breathing comfortably and is currently on room air, patient denies having any chest pain and cough, patient denies nausea vomiting abdominal pain has decreased in intensity feeling better. Patient white count is 11.04, creatinine 0.9 culture from the right hip site so far negative blood culture negative Objective - Vital Signs Vital signs: Vital Signs Temp 98.4 F 06/24/24 07:01 Pulse 58 L 06/24/24 07:35 Resp 18 06/24/24 07:35 BP 105/95 06/24/24 07:01 Pulse Ox 95 06/24/24 07:01 FiO2 Intake & Output 06/23/24 06/24/24 06/24/24 18:59 06:59 18:59 Other: # Voids 0 2 - Exam GENERAL DESCRIPTION: An elderly male lying in bed in no distress RESPIRATORY SYSTEM: Unlabored breathing , decreased breath sounds at bases HEART: S1 S2 regular rate and rhythm , ABDOMEN: Soft , left-sided tenderness EXTREMITIES: Right hip incision with less erythema - Labs CBC & Chem 7: 06/24/24 02:41 06/24/24 02:41 Labs: Abnormal Lab Results - Last 24 Hours (Table) 06/23/24 06/23/24 06/24/24 Range/Units 03:41 03:41 02:41 WBC (4.50-10.00) X 10*3/uL RBC (4.40-5.60) X 10*6/uL Hgb (13.0-17.0) g/dL Hct (39.6-50.0) % Immature Gran # (0.00-0.04) X 10*3/uL Neutrophils # (1.80-7.70) X 10*3/uL Lymphocytes # (0.90-5.00) X 10*3/uL Eosinophils # (0.04-0.35) X 10*3/uL ESR 31 H (0-20) mm/Hr Glucose 132 H (70-110) mg/dL C-Reactive Protein 20.40 H (0.00-0.80) mg/dL 06/24/24 Range/Units 02:41 WBC 11.04 H (4.50-10.00) X 10*3/uL RBC 3.86 L (4.40-5.60) X 10*6/uL Hgb 11.4 L (13.0-17.0) g/dL Hct 34.7 L (39.6-50.0) % Immature Gran # 0.07 H (0.00-0.04) X 10*3/uL Neutrophils # 9.74 H (1.80-7.70) X 10*3/uL Lymphocytes # 0.61 L (0.90-5.00) X 10*3/uL Eosinophils # 0.01 L (0.04-0.35) X 10*3/uL ESR (0-20) mm/Hr Glucose (70-110) mg/dL C-Reactive Protein (0.00-0.80) mg/dL Microbiology - Last 24 Hours (Table) 06/22/24 01:27 Gram Stain - Final Leg - Right Wound Culture - Final 06/21/24 23:37 Blood Culture - Preliminary Blood Assessment and Plan (1) Sepsis Current Visit: Yes Status: Acute Code(s): A41.9 - SEPSIS, UNSPECIFIED ORGANISM SNOMED Code(s): 64768601 (2) Diverticulitis Current Visit: Yes Status: Acute Code(s): K57.92 - DVTRCLI OF INTEST, PART UNSP, W/O PERF OR ABSCESS W/O BLEED SNOMED Code(s): 983167796 (3) Surgical site infection Current Visit: Yes Status: Acute Code(s): T81.49XA - INFECTION FOLLOWING A PROCEDURE, OTHER SURGICAL SITE, INIT SNOMED Code(s): 53986734 Plan: 1patient presented hospital with sepsis in this patient who did have fever tachycardia elevated white count meeting criteria for SIRS/sepsis source is likely acute diverticulitis however the patient also have recent right hip arthroplasty with the middle part of incision did have some erythema and the patient mention some drainage possible component of surgical site infection not entirely excluded and will need to cover for both the gram-positive as well as gram-negative enteric pathogen 2-blood culture as well as culture from the right hip surgical site has been obtained which are so far negative 3-patient did have resolution of his fever white count is slightly up today to monitor closely for now continue Zosyn 3.375 g every 8 hours and daptomycin 4 mg/kg daily while waiting for the workup to be completed Dictation was produced using [employer] dictation software. please excuse any grammatical, word or spelling errors. Time with Patient: Less than 30
[2024-06-25 08:36] LABS: Basophils # (A) 0.03 10*3/uL (0.00-0.10); Basophils % (A) 0.5 %; Eosinophils # (A) 0.14 10*3/uL (0.04-0.35); Eosinophils % (A) 2.5 %; HCT 33.2 % (39.6-50.0); HGB 11.2 g/dL (13.0-17.0); Lymphocytes # (A) 0.58 10*3/uL (0.90-5.00); Lymphocytes % (A) 10.4 %; MCH 30.1 pg (27.0-32.0); MCHC 33.7 g/dL (32.0-37.0); MCV 89.2 fL (80.0-97.0); Mean Platelet Volume 9.6 fL (9.5-12.2); Monocytes % (A) 7.2 %; Neutrophils # (A) 4.42 10*3/uL (1.80-7.70); Platelet Count 323 10*3/uL (140-440); RBC 3.72 10*6/uL (4.40-5.60); RDW 13.6 % (11.5-14.5); WBC 5.59 10*3/uL (4.50-10.00)
--- NOTE | 2024-06-25 11:26 | P.PN ---
Subjective Progress Note Date: 06/25/24 Principal diagnosis: fever; diverticulitis; left sided hernia; right hip pain s/p recent right total hip arthroplasty Patient was seen at bedside this morning sitting up in chair with dressing present over right anterior hip. Patient does note significant improvement in regards to the swelling in the right hip he says he has very mild pain this morning and it has been getting better every day since being in the hospital. Patient says he is still having some left lower abdominal pain at this time. He says he did have a bowel yesterday and the pain has improved since then. He says he is still been just on fluids in regards to his diet and has not had anything solid to eat. Cultures have been negative. Patient still on IV antibiotics. Patient does note significant treatment in regards to the pain he was having in his right knee. Objective - Vital Signs Vital signs: Vital Signs Temp 99.0 F 06/25/24 07:01 Pulse 58 L 06/25/24 07:01 Resp 18 06/25/24 07:01 BP 121/70 06/25/24 07:01 Pulse Ox 97 06/25/24 07:01 FiO2 Intake & Output 06/24/24 06/25/24 06/25/24 18:59 06:59 18:59 Intake Total 550 1500 Balance 550 1500 Intake: Intake, IV Titration 100 Amount Piperacillin-Tazobactam 3 100 .375 gm In Sodium Chloride 0.9% 100 ml @ 25 mls/hr IVPB Q8H [facility] Rx#: [id number] Oral 450 1500 Other: # Voids 2 2 - Exam Dressing present over the anterior incision on the right hip. Some mild swelling which is lessening over past couple days near incision on right anterior hip. Negative for any drainage. Scabbing present. Sensation is equal, symmetric, by intact throughout the extremities on exam. Patient does have mild tenderness to palp near the incision on the right hip and some mild tenderness to palp extending laterally over the right hip. Patient does have some mild tenderness to palpation over the medial patellar facet and over the medial femoral epicondyle on the right knee. Nontender on rest of exam. Patient does have some limited range of motion in the right hip secondary to stiffness and referred pain due to the recent surgery. Patient does have good range of motion throughout the left lower extremity on exam in bilateral upper extremities on exam.4-/5 in right lower extremity in all major motor groups. 4+/5 in left lower extremity and bilateral upper extremities in all major motor groups. Radial pulse intact, 2+ bilaterally. Cap refill under 3 seconds in digits of upper extremities. Negative Homans bilaterally. Negative clonus bilaterally. - Labs CBC & Chem 7: 06/25/24 08:13 06/24/24 02:41 Labs: Abnormal Lab Results - Last 24 Hours (Table) 06/25/24 Range/Units 08:13 RBC 3.72 L (4.40-5.60) 10*6/uL Hgb 11.2 L (13.0-17.0) g/dL Hct 33.2 L (39.6-50.0) % Lymphocytes # 0.58 L (0.90-5.00) 10*3/uL Microbiology - Last 24 Hours (Table) 06/21/24 23:37 Blood Culture - Preliminary Blood 06/22/24 01:27 Gram Stain - Final Leg - Right Wound Culture - Final Assessment and Plan Assessment: 1. History of recent direct anterior right total hip arthroplasty; diverticulitis; history of multiple hernia repairs Plan: 1. History of recent direct anterior right total hip arthroplasty; fever; diverticulitis;hernia; history of multiple hernia repairs -CT of the abdomen does reveal diverticulitis as well as hernia on the left side. Patient does have history of recent right total hip arthroplasty. WBC trending down. Decr eased swelling surrounding right hip incision. No drainage. No plan for orthopedic surgery at this time. Recommend continued conservative measures with IV abx. Abx per ID. Cultures negative. General surgery following due to diverticultiis and left sided hernia. Patient may weight-bear as tolerated with a walker. Pain medication as needed. We will defer rest of management to medicine, ID and gen surg during patient stay. Ortho will be available as needed. We do recommend patient to follow-up in the outpatient setting in [address] Grijalva. 2. Appreciate medical, general surgery, ID management 3. Pain management - tylenol with codeine 4. DVT prophylaxis - mechanical 5. GI prophylaxis - senna 6. PT/OT -weightbearing as tolerated with walker 7. Encourage incentive spirometer use Time with Patient: Less than 30
[2024-06-25] MEDS: CHOLESTYRAMINE (WITH SUGAR) 4 GM PACKET PO SCH (13:41)
--- NOTE | 2024-06-25 13:43 | P.PN ---
Subjective Progress Note Date: 06/25/24 73-year-old male was brought in by his because of his severe left lower quadrant abdominal pain and diverticulitis for which patient on oral antibiotics as an outpatient patient is severe sigmoid diverticulitis without any abscess. Patient also had a hip surgery 2 weeks ago patient is surgical site appears to be infected because of which patient was started on daptomycin here patient had fever yesterday patient was eval by infectious disease and daptomycin is added to the Zosyn because of the possible surgical site area infection. Orthopedics will evaluate the patient. Orthopedic surgery recommending incision and drainage of the surgical site area. Patient also has left inguinal hernia had multiple surgeries in the past General Surgery. Will evaluate the patient as well 06/23/2024 Patient's right hip area redness almost completely resolved with the daptomycin. Orthopedic surgery is not planning on any incision and drainage as patient has significant improvement and patient does not have swelling in the joint. Patient still has left lower quadrant abdominal tenderness which is still significant patient remains on Zosyn. 06/24/2024 Patient is evaluated in follow up on the medical floor. Patient continues on IV daptomycin and IV Zosyn. His abdomen is less tender however he continues to have some diarrhea. He is tolerating a liquid diet at this time. Labs today reveal white blood cell count 1.04, hemoglobin 1.4, sodium of 137 potassium 4.6, BUN of 12 creatinine 0.9. Patient is eval today in follow-up in the medical floor. His incision to the right hip arthroplasty approximated and scabbed over with minimal erythema surrounding the wound. It is no longer draining and dressing is dry and intact. His wound culture has been negative so far as well as a negative blood culture. He continues to report liquid stool and will add questran. He continues on IV daptomycin and IV Zosyn. Infectious disease following. Review of Systems Constitutional: Denied any fatigue denied any fever. Cardio vascular: denied any chest pain, palpitations Gastrointestinal: denied any nausea, vomiting, diarrhea Pulmonary: Denied any shortness of breath cough Neurologic denied any new focal deficits All inpatient medications were reviewed and appropriate changes in these medications as dictated in the interval history and assessment and plan. PHYSICAL EXAMINATION: GENERAL: The patient is alert and oriented x3, not in any acute distress. Well developed, well nourished. HEENT: Pupils are round and equally reacting to light. EOMI. No scleral icterus. No conjunctival pallor. Normocephalic, atraumatic. No pharyngeal erythema. No thyromegaly. CARDIOVASCULAR: S1 and S2 present. No murmurs, rubs, or gallops. PULMONARY: Chest is clear to auscultation, no wheezing or crackles. ABDOMEN: Mild distention with the left lower quadrant abdominal tenderness which is severe, normoactive bowel sounds. No palpable organomegaly. MUSCULOSKELETAL: Right hip surgical site area is red. Appears to be infected present EXTREMITIES: No cyanosis, clubbing, or pedal edema. NEUROLOGICAL: Gross neurological examination did not reveal any focal deficits. SKIN: No rashes. Assessment and plan -Sepsis secondary to sigmoid diverticulitis and possible infection of the surg ical site area in the right hip. He had a replacement. Patient was started on daptomycin for a right hip surgical site area infection, cultures are negative so far. - Right hip surgical site area infection. For which patient is on daptomycin given improvement in redness of the surgical site area. - Diverticulitis patient is on liquid diet which will be advanced to full liquid today. Patient is on IV zosyn. ID following. Questran added and will need to use cautiously with the mycophenalate. - Recent right hip replacement - History of myasthenia gravis for which patient is on rivastigmine - Hypothyroidism history of thyroid cancer status post thyroidectomy patient is on immunosuppressive therapy DVT prophylaxis: Patient will be started on Lovenox The impression and plan of care has been dictated by Lissa Abbott, Nurse Practitioner as directed. Dr. Wale MD I have performed a history and physical examination and medical decision making of this patient, discussed the same with the dictator, and agree with the dictators assessment and plan as written, documented as a scribe. Based on total visit time, I have performed more than 50% of this visit. Objective - Vital Signs Vital signs: Vital Signs Temp 99.0 F 06/25/24 07:01 Pulse 58 L 06/25/24 07:01 Resp 18 06/25/24 07:01 BP 121/70 06/25/24 07:01 Pulse Ox 97 06/25/24 07:01 FiO2 Intake & Output 06/24/24 06/25/24 06/25/24 18:59 06:59 18:59 Intake Total 550 1500 Balance 550 1500 Intake: Intake, IV Titration 100 Amount Piperacillin-Tazobactam 3 100 .375 gm In Sodium Chloride 0.9% 100 ml @ 25 mls/hr IVPB Q8H [facility] Rx#: [id number] Oral 450 1500 Other: Voiding Method Toilet # Voids 2 2 - Labs CBC & Chem 7: 06/25/24 08:13 06/24/24 02:41 Labs: Abnormal Lab Results - Last 24 Hours (Table) 06/25/24 Range/Units 08:13 RBC 3.72 L (4.40-5.60) 10*6/uL Hgb 11.2 L (13.0-17.0) g/dL Hct 33.2 L (39.6-50.0) % Lymphocytes # 0.58 L (0.90-5.00) 10*3/uL Microbiology - Last 24 Hours (Table) 06/21/24 23:37 Blood Culture - Preliminary Blood Assessment and Plan Time with Patient: Less than 30
--- NOTE | 2024-06-25 14:58 | P.PN ---
Subjective Progress Note Date: 06/25/24 Principal diagnosis: Reason for follow-up is diverticulitis and right hip surgical site infection Patient is a 73-year-old with a past medical history significant for heart failure hypertension osteoarthritis myasthenia gravis patient did have a right hip arthroplasty on 06/07/2024 patient apparently has been dealing with fever and outpatient CT was positive for diverticulitis with the patient has been admitted to hospital. On today's evaluation that is 06/25/2024, Patient is afebrile this morning patient denies having any chest pain shortness of breath or cough, the patient is currently on room air, patient denies any nausea vomiting abdominal pain has decreased intensity complaining of some diarrhea. Patient white count normalized to 5.59 creatinine 0.9 blood cultures so far negative Objective - Vital Signs Vital signs: Vital Signs Temp 98.4 F 06/25/24 14:05 Pulse 57 L 06/25/24 14:05 Resp 17 06/25/24 14:05 BP 125/85 06/25/24 14:05 Pulse Ox 98 06/25/24 14:05 FiO2 Intake & Output 06/24/24 06/25/24 06/25/24 18:59 06:59 18:59 Intake Total 550 1500 Balance 550 1500 Intake: Intake, IV Titration 100 Amount Piperacillin-Tazobactam 3 100 .375 gm In Sodium Chloride 0.9% 100 ml @ 25 mls/hr IVPB [facility] Rx#: [id number] Oral 450 1500 Other: Voiding Method Toilet # Voids 2 2 - Exam GENERAL DESCRIPTION: An elderly male lying in bed in no distress RESPIRATORY SYSTEM: Unlabored breathing , decreased breath sounds at bases HEART: S1 S2 regular rate and rhythm , ABDOMEN: Soft , left-sided tenderness EXTREMITIES: Right hip incision with less erythema - Labs CBC & Chem 7: 06/25/24 08:13 06/24/24 02:41 Labs: Abnormal Lab Results - Last 24 Hours (Table) 06/25/24 Range/Units 08:13 RBC 3.72 L (4.40-5.60) 10*6/uL Hgb 11.2 L (13.0-17.0) g/dL Hct 33.2 L (39.6-50.0) % Lymphocytes # 0.58 L (0.90-5.00) 10*3/uL Microbiology - Last 24 Hours (Table) 06/21/24 23:37 Blood Culture - Preliminary Blood Assessment and Plan (1) Sepsis Current Visit: Yes Status: Acute Code(s): A41.9 - SEPSIS, UNSPECIFIED ORGANISM SNOMED Code(s): 05656992 (2) Diverticulitis Current Visit: Yes Status: Acute Code(s): K57.92 - DVTRCLI OF INTEST, PART UNSP, W/O PERF OR ABSCESS W/O BLEED SNOMED Code(s): 216730211 (3) Surgical site infection Current Visit: Yes Status: Acute Code(s): T81.49XA - INFECTION FOLLOWING A PROCEDURE, OTHER SURGICAL SITE, INIT SNOMED Code(s): 72508127 Plan: 1patient presented hospital with sepsis in this patient who did have fever tachycardia elevated white count meeting criteria for SIRS/sepsis source is likely acute diverticulitis however the patient also have recent right hip arthr oplasty with the middle part of incision did have some erythema and the patient mention some drainage possible component of surgical site infection not entirely excluded and will need to cover for both the gram-positive as well as gram-negative enteric pathogen 2-blood culture as well as culture from the right hip surgical site has been obtained which are so far negative 3-patient did have resolution of his fever white count has normalized, 4patient will will be treated with Zosyn 3.375 g every 8 hours and daptomycin 4 mg/kg daily, will transition to oral antibiotic on discharge Dictation was produced using [employer] dictation software. please excuse any grammatical, word or spelling errors. Time with Patient: Less than 30
--- NOTE | 2024-06-25 15:00 | P.PN ---
Subjective Progress Note Date: 06/25/24 SURGICAL PROGRESS NOTE CHIEF COMPLAINT: Abdominal pain HISTORY OF PRESENT ILLNESS: Patient abdominal pain continues to improve. He does report having diarrhea. Denies any nausea or vomiting. Afebrile. WBC normalized at 5.59 PHYSICAL EXAM: VITAL SIGNS: Reviewed. GENERAL: Well-developed in no acute distress. ABDOMEN: Soft. Nondistended. Mild tenderness left lower quadrant. Extremities: right anterior hip incision decreased erythema. No significant drainage. Scabbing noted at incision site. Swelling noted NEUROLOGIC: Alert and oriented. Cranial nerves II through XII grossly intact. ASSESSMENT: 1. Acute diverticulitis 2. Fat filled left inguinal hernia 3. Right hip surgical site infection PLAN: -Continue full liquid diet. Anticipate advancing to low fiber tomorrow -Continue antibiotics -Orthopedic service recommending conservative management for the right hip surgical site infection Physician Hog Ribber note has been reviewed by physician. Signing provider agrees with the documented findings, assessment, and plan of care. Objective - Vital Signs Vital signs: Vital Signs Temp 98.4 F 06/25/24 14:05 Pulse 57 L 06/25/24 14:05 Resp 17 06/25/24 14:05 BP 125/85 06/25/24 14:05 Pulse Ox 98 06/25/24 14:05 FiO2 Intake & Output 06/24/24 06/25/24 06/25/24 18:59 06:59 18:59 Intake Total 550 1500 Balance 550 1500 Intake: Intake, IV Titration 100 Amount Piperacillin-Tazobactam 3 100 .375 gm In Sodium Chloride 0.9% 100 ml @ 25 mls/hr IVPB Q8H [facility] Rx#: [id number] Oral 450 1500 Other: Voiding Method Toilet # Voids 2 2 - Labs CBC & Chem 7: 06/25/24 08:13 06/24/24 02:41 Labs: Abnormal Lab Results - Last 24 Hours (Table) 06/25/24 Range/Units 08:13 RBC 3.72 L (4.40-5.60) 10*6/uL Hgb 11.2 L (13.0-17.0) g/dL Hct 33.2 L (39.6-50.0) % Lymphocytes # 0.58 L (0.90-5.00) 10*3/uL Microbiology - Last 24 Hours (Table) 06/21/24 23:37 Blood Culture - Preliminary Blood
[2024-06-26 08:35] LABS: Basophils # (A) 0.03 X 10*3/uL (0.00-0.10); Basophils % (A) 0.6 %; Eosinophils # (A) 0.22 X 10*3/uL (0.04-0.35); Eosinophils % (A) 4.3 %; HGB 11.1 g/dL (13.0-17.0); Lymphocytes # (A) 0.86 X 10*3/uL (0.90-5.00); MCH 29.2 pg (27.0-32.0); MCHC 32.6 g/dL (32.0-37.0); MCV 89.5 FL (80.0-97.0); Mean Platelet Volume 9.7 FL (9.5-12.2); Monocytes # (A) 0.51 X 10*3/uL (0.20-1.00); Monocytes % (A) 10.1 %; NRBC Per 100 WBC 0 X 10*3/uL (0.00-0.01); Neutrophils # (A) 3.42 X 10*3/uL (1.80-7.70); Neutrophils % (A) 67.6 %; Platelet Count 340 X 10*3/uL (140-440); RDW 13.7 % (11.5-14.5); WBC 5.06 X 10*3/uL (4.50-10.00)
[2024-06-26 08:57] LABS: Blood Urea Nitrogen 9.1 mg/dL (9.0-27.0); Calcium 8.8 mg/dL (8.7-10.3); Carbon Dioxide 23.3 mmol/L (21.6-31.8); Chloride 105 mmol/L (96-109); Glucose 78 mg/dL (70-110); Potassium 4.4 mmol/L (3.5-5.5); Sodium 140 mmol/L (135-145)
[2024-06-26] MEDS: PYRIDOSTIGMINE 60 MG TAB PO PRN (11:26)
--- NOTE | 2024-06-26 11:49 | P.PN ---
Subjective Progress Note Date: 06/26/24 Principal diagnosis: fever; diverticulitis; left sided hernia; right hip pain s/p recent right total hip arthroplasty Patient was seen at bedside this morning sitting up in chair with dressing present over right anterior hip. Patient does note significant improvement in regards to the swelling in the right hip he says he has very mild pain this morning and it has been getting better every day since being in the hospital. Patient says he is still having some left lower abdominal pain at this time. Patient says he has been having get up every hour due to having diarrhea. Patient says this morning he was finally able to have some more solid food as he has been liquid diet. Cultures have been negative. Patient still on IV antibiotics. Patient does note significant treatment in regards to the pain he was having in his right knee. Objective - Vital Signs Vital signs: Vital Signs Temp 99.6 F 06/26/24 07:08 Pulse 56 L 06/26/24 07:08 Resp 16 06/26/24 07:08 BP 148/78 06/26/24 07:08 Pulse Ox 98 06/26/24 07:08 FiO2 Intake & Output 06/25/24 06/26/24 06/26/24 18:59 06:59 18:59 Other: Voiding Method Toilet Toilet # Voids 3 # Bowel Movements 1 - Exam Dressing present over the anterior incision on the right hip. Some mild swelling which is lessening over past couple days near incision on right anterior hip. Negative for any drainage. Scabbing present. Sensation is equal, symmetric, by intact throughout the extremities on exam. Patient does have mild tenderness to palp near the incision on the right hip and some mild tenderness to palp extending laterally over the right hip. Patient does have some mild tenderness to palpation over the medial patellar facet and over the medial femoral epicondyle on the right knee. Nontender on rest of exam. Patient does have some limited range of motion in the right hip secondary to stiffness and referred pain due to the recent surgery. Patient does have good range of motion throughout the left lower extremity on exam in bilateral upper extremities on exam.4-/5 in right lower extremity in all major motor groups. 4+/5 in left lower extremity and bilateral upper extremities in all major motor groups. Radial pulse intact, 2+ bilaterally. Cap refill under 3 seconds in digits of upper extremities. Negative Homans bilaterally. Negative clonus bilaterally. - Labs CBC & Chem 7: 06/26/24 02:41 06/26/24 02:41 Labs: Abnormal Lab Results - Last 24 Hours (Table) 06/26/24 06/26/24 Range/Units 02:41 02:41 RBC 3.80 L (4.40-5.60) X 10*6/uL Hgb 11.1 L (13.0-17.0) g/dL Hct 34.0 L (39.6-50.0) % Lymphocytes # 0.86 L (0.90-5.00) X 10*3/uL BUN/Creatinine Ratio 9.10 L (12.00-20.00) Ratio Microbiology - Last 24 Hours (Table) 06/21/24 23:37 Blood Culture - Preliminary Blood Assessment and Plan Assessment: 1. History of recent direct anterior right total hip arthroplasty; diverticulitis; history of multiple hernia repairs Plan: 1. History of recent direct anterior right total hip arthroplasty; fever; diverticulitis;hernia; history of multiple hernia repairs -CT of the abdomen does reveal diverticulitis as well as hernia on the left side. Patient does have history of recent right total hip arthroplasty. WBC trending down. Decreased swelling surrounding right hip incision. No drainage. No plan for orthopedic surgery at this time. Recommend continued conservative measures with IV abx. Abx per ID. Cultures negative. General surgery following due to diverticultiis and left sided hernia. Patient may weight-bear as tolerated with a walker. Pain medication as needed. We will defer rest of management to medicine, ID and gen surg during patient stay. Ortho signing off at this time. Please do not hesitate to contact us for any further questions. Patient to follow-up in the outpatient setting in [address] Grijalva. 2. Appreciate medical, general surgery, ID management 3. Pain management - tylenol with codeine 4. DVT prophylaxis - mechanical 5. GI prophylaxis - senna 6. PT/OT -weightbearing as tolerated with walker 7. Encourage incentive spirometer use Time with Patient: Less than 30
--- NOTE | 2024-06-26 12:54 | P.PN ---
Subjective Progress Note Date: 06/26/24 SURGICAL PROGRESS NOTE CHIEF COMPLAINT: Abdominal pain HISTORY OF PRESENT ILLNESS: Patient reports increased abdominal pain after eating all of his breakfast. His diet had been advanced to low fiber. Patient does report feeling bloated. He did have multiple episodes of diarrhea. Denies any blood in his stool. Temp 99.6 WBC is 5.06 Hgb 11.1 PHYSICAL EXAM: VITAL SIGNS: Reviewed. GENERAL: Well-developed in no acute distress. ABDOMEN: Soft. Nondistended. tenderness with palpation to left lower quadrant. NEUROLOGIC: Alert and oriented. Cranial nerves II through XII grossly intact. ASSESSMENT: 1. Acute diverticulitis 2. Fat filled left inguinal hernia 3. Right hip surgical site infection PLAN: -Will repeat CT scan abdomen and pelvis with contrast tomorrow regarding abdominal pain -Continue low fiber diet -Continue antibiotics per ID -Repeat CBC in a.m. Physician Metallurgical Inspector note has been reviewed by physician. Signing provider agrees with the documented findings, assessment, and plan of care. Objective - Vital Signs Vital signs: Vital Signs Temp 99.6 F 06/26/24 07:08 Pulse 56 L 06/26/24 07:08 Resp 16 06/26/24 07:08 BP 148/78 06/26/24 07:08 Pulse Ox 98 06/26/24 07:08 FiO2 Intake & Output 06/25/24 06/26/24 06/26/24 18:59 06:59 18:59 Other: Voiding Method Toilet Toilet # Voids 3 # Bowel Movements 1 - Labs CBC & Chem 7: 06/26/24 02:41 06/26/24 02:41 Labs: Abnormal Lab Results - Last 24 Hours (Table) 06/26/24 06/26/24 Range/Units 02:41 02:41 RBC 3.80 L (4.40-5.60) X 10*6/uL Hgb 11.1 L (13.0-17.0) g/dL Hct 34.0 L (39.6-50.0) % Lymphocytes # 0.86 L (0.90-5.00) X 10*3/uL BUN/Creatinine Ratio 9.10 L (12.00-20.00) Ratio Microbiology - Last 24 Hours (Table) 06/21/24 23:37 Blood Culture - Preliminary Blood
--- NOTE | 2024-06-27 06:26 | P.PN ---
Subjective Progress Note Date: 06/26/24 73-year-old male was brought in by his because of his severe left lower quadrant abdominal pain and diverticulitis for which patient on oral antibiotics as an outpatient patient is severe sigmoid diverticulitis without any abscess. Patient also had a hip surgery 2 weeks ago patient is surgical site appears to be infected because of which patient was started on daptomycin here patient had fever yesterday patient was eval by infectious disease and daptomycin is added to the Zosyn because of the possible surgical site area infection. Orthopedics will evaluate the patient. Orthopedic surgery recommending incision and drainage of the surgical site area. Patient also has left inguinal hernia had multiple surgeries in the past General Surgery. Will evaluate the patient as well 06/23/2024 Patient's right hip area redness almost completely resolved with the daptomycin. Orthopedic surgery is not planning on any incision and drainage as patient has significant improvement and patient does not have swelling in the joint. Patient still has left lower quadrant abdominal tenderness which is still significant patient remains on Zosyn. 06/24/2024 Patient is evaluated in follow up on the medical floor. Patient continues on IV daptomycin and IV Zosyn. His abdomen is less tender however he continues to have some diarrhea. He is tolerating a liquid diet at this time. Labs today reveal white blood cell count 1.04, hemoglobin 1.4, sodium of 137 potassium 4.6, BUN of 12 creatinine 0.9. Patient is eval today in follow-up in the medical floor. His incision to the right hip arthroplasty approximated and scabbed over with minimal erythema surrounding the wound. It is no longer draining and dressing is dry and intact. His wound culture has been negative so far as well as a negative blood culture. He continues to report liquid stool and will add questran. He continues on IV daptomycin and IV Zosyn. Infectious disease following. 06/26/2024 Patient evaluated today in follow up. He is requesting PRN dose of mestinon as he states his vision is slightly blurry and he is beginning to notice some trouble swallowing. Supposed to have IVIG infusion as an outpatient on . His right hip incision is dry and scabbed. His cultures are all negative so far. ID recommending PO antibiotics on DC. He remains on liquid diet and still having abdominal pain and tenderness; worse after eating. He continues to have multiple episodes of loose stools. Review of Systems Constitutional: Denied any fatigue denied any fever. Cardio vascular: denied any chest pain, palpitations Gastrointestinal: denied any nausea, vomiting, diarrhea Pulmonary: Denied any shortness of breath cough Neurologic denied any new focal deficits All inpatient medications were reviewed and appropriate changes in these medications as dictated in the interval history and assessment and plan. PHYSICAL EXAMINATION: GENERAL: The patient is alert and oriented x3, not in any acute distress. Well d eveloped, well nourished. HEENT: Pupils are round and equally reacting to light. EOMI. No scleral icterus. No conjunctival pallor. Normocephalic, atraumatic. No pharyngeal erythema. No thyromegaly. CARDIOVASCULAR: S1 and S2 present. No murmurs, rubs, or gallops. PULMONARY: Chest is clear to auscultation, no wheezing or crackles. ABDOMEN: Mild distention with the left lower quadrant abdominal tenderness which is severe, normoactive bowel sounds. No palpable organomegaly. MUSCULOSKELETAL: Right hip surgical site area is red. Appears to be infected present EXTREMITIES: No cyanosis, clubbing, or pedal edema. NEUROLOGICAL: Gross neurological examination did not reveal any focal deficits. SKIN: No rashes. Assessment and plan - Sepsis secondary to sigmoid diverticulitis and possible infection of the surgical site area in the right hip. He had a replacement. Patient was started on daptomycin for a right hip surgical site area infection, cultures are negative so far. - Right hip surgical site area infection. For which patient is on daptomycin given improvement in redness of the surgical site area. - Diverticulitis patient is on liquid diet which will be advanced to full liquid today. Patient is on IV zosyn. ID following. - Diarrhea could be from antibiotics; check C.Dif - Recent right hip replacement - History of myasthenia gravis for which patient is on rivastigmine and requesting PRN dose today. Supposed to get IVIG outpatient on . - Hypothyroidism history of thyroid cancer status post thyroidectomy patient is on immunosuppressive therapy DVT prophylaxis: Patient will be started on Lovenox The impression and plan of care has been dictated by Lissa Abbott, Nurse Practitioner as directed. Dr. Wale MD I have performed a history and physical examination and medical decision making of this patient, discussed the same with the dictator, and agree with the dictators assessment and plan as written, documented as a scribe. Based on total visit time, I have performed more than 50% of this visit. Objective - Vital Signs Vital signs: Vital Signs Temp 98.4 F 06/27/24 01:23 Pulse 63 06/27/24 01:23 Resp 17 06/27/24 01:23 BP 142/74 06/27/24 01:23 Pulse Ox 97 06/27/24 01:23 FiO2 Intake & Output 06/26/24 06/26/24 06/27/24 06:59 18:59 06:59 Other: Voiding Method Toilet Toilet Toilet # Voids 3 1 3 # Bowel Movements 1 1 - Labs CBC & Chem 7: 06/26/24 02:41 06/26/24 02:41 Labs: Abnormal Lab Results - Last 24 Hours (Table) 06/26/24 06/26/24 Range/Units 02:41 02:41 RBC 3.80 L (4.40-5.60) X 10*6/uL Hgb 11.1 L (13.0-17.0) g/dL Hct 34.0 L (39.6-50.0) % Lymphocytes # 0.86 L (0.90-5.00) X 10*3/uL BUN/Creatinine Ratio 9.10 L (12.00-20.00) Ratio
[2024-06-27] MEDS: IOPAMIDOL CONTRAST (ORAL USE) VIAL PO PRN (06:36)
[2024-06-27] MEDS: LORazepam 1 MG/0.5 ML VIAL IV PRN (07:51)
--- NOTE | 2024-06-27 10:16 | CT ---
EXAMINATION TYPE: CT abdomen pelvis w con DATE OF EXAM: 06/27/2024 9:22 AM COMPARISON: 06/21/2024 CLINICAL INDICATION: Male, 73 years old with history of abdominal pain, follow-up on diverticulitis; abdominal pain, follow-up for diverticulitis TECHNIQUE: CT of the abdomen and pelvis after administration of:100ml mL of Isovue [address], delayed images of the kidneys and coronal/sagittal reconstructions performed. CT DLP: 1294.6 mGycm, Automated exposure control for dose reduction was used. FINDINGS: LOWER CHEST: Heart upper limits of normal in size. Strandy atelectasis or scarring redemonstrated in the lower lungs. ABDOMEN LIVER: Enlarged measuring at least 20.0 cm. No focal lesion. Portal venous system is patent. GALLBLADDER AND BILE DUCTS: Unremarkable. PANCREAS: Unremarkable. SPLEEN: Mildly enlarged at 14.9 cm. ADRENAL GLANDS: Unremarkable. KIDNEYS AND URETERS: A couple tiny cortical cysts right kidney measuring up to 8 mm. Symmetric uptake and excretion of contrast from both kidneys. PELVIS Not well assessed due to extensive metal artifact related to the patient's total hip arthroplasties. Bladder is urine distended. ABDOMEN & PELVIS STOMACH AND BOWEL: Diffuse gastric fold thickening. A prominent perivascular vessels or mild fat stra nding that can be correlated with symptoms. No evidence of bowel obstruction. Oral contrast progresse d into the proximal sigmoid colon. There is left-sided colonic diverticulosis and redemonstrated wall thickening and localized inflammation along the proximal sigmoid colon. Overall degree of inflammati on is similar though the suspected tiny microperforation may have now enlarged currently measuring up to 2.1 cm characterize by inflammatory soft tissue thickening, fluid, and air, axial image 68. Some reactive trace pelvic free fluid is now noted. PERITONEUM/RETROPERITONEUM: No evidence of pneumoperitoneum. Small amount of pelvic free fluid. VASCULATURE: No evidence of aortic aneurysm. MUSCULOSKELETAL: Bilateral total hip arthroplasties. Soft tissue swelling about the right hip has par tially improved. There is a fluid collection extending along the fascial planes lateral to the right hip measuring 8.5 x 6.2 x 2.7 cm that appears to have slightly decreased in size from prior. Correlat e as to time since patient's right hip surgery. LYMPH NODES: No gross evidence for lymphadenopathy. SOFT TISSUE/ABDOMINAL WALL: Small to moderate sized fat-containing indirect left inguinal hernia. IMPRESSION: 1. Redemonstrated acute diverticulitis along the proximal sigmoid colon. The degree of moderate local inflammation has not significantly changed though a suspected small contained microperforation along the anterior margin appears to have enlarged now measuring 2.1 cm. Some reactive mild pelvic free fl uid has developed. No free air otherwise seen. 2. Soft tissue swelling and edema along the right hip has partially improved. A poorly defined fluid collection along the intramuscular fascia lateral right hip is slightly smaller but still sizable 0.5 x 6.2 x 2.7 cm. Correlate as to time since surgery, suspected postsurgical. 3. Mild diffuse gastric fold thickening versus appearance due to nondistention. Query any signs/sympt oms of underlying gastritis. 4. Incidental: Hepatosplenomegaly (liver 20.0 cm and spleen 14.9 cm). [facility], , 06/27/2024 10:13 AM
--- NOTE | 2024-06-27 13:52 | P.PN ---
Subjective Progress Note Date: 06/27/24 SURGICAL PROGRESS NOTE CHIEF COMPLAINT: Abdominal pain HISTORY OF PRESENT ILLNESS: Patient complains of pain in the left groin. He did have a bowel movement yesterday. Denies any nausea or vomiting. Afebrile. WBC 5.[address] scan abdomen pelvis reports redemonstration of acute diverticulitis along the proximal sigmoid colon. Degree of moderate local inflammation has not significantly changed though a suspected small contained microperforation along the anterior margin appears to have enlarged now measuring 2.1 cm. Some reactive mild pelvic fluid is developed. No free air otherwise seen. Soft tissue swelling and edema along the right hip has partially improved. Poorly defined fluid collection along the intramuscular fascia of the lateral right hip slightly smaller. Mild diffuse gastric fold thickening. Hepatosplenomegaly. PHYSICAL EXAM: VITAL SIGNS: Reviewed. GENERAL: Well-developed in no acute distress. ABDOMEN: Soft. Nondistended. tenderness with palpation to left lower quadrant and more tender in the left groin. Groin is soft. NEUROLOGIC: Alert and oriented. Cranial nerves II through XII grossly intact. ASSESSMENT: 1. Acute sigmoid diverticulitis with CAT scan reporting suspected contained microperforation 2. Fat filled left inguinal hernia 3. Right hip surgical site infection PLAN: -Continue low fiber diet -Continue antibiotics per ID -Patient can be discharged with oral antibiotics from surgical standpoint when medically cleared. Patient is afebrile. With normal white count. Physician [employer] Plant Operator note has been reviewed by physician. Signing provider agrees with the documented findings, assessment, and plan of care. I have personally seen and examined the patient, reviewed the REAMING MACHINE TENDER /PAs history, exam and MDM and agree with the assessment and plan as written. Based on total visit time, I have performed more than 50% of the visit. As above: Patient feels slightly better today. No fevers. White blood cell count yesterday normal. Tolerating diet. Patient's CAT scan today was reviewed. The patient has evidence of a small microperforation which certainly makes sense given the impressive nests of his presentation on late Monday into Monday. I suspect the perforation occurred sometime Monday and that we are seeing the residual effects of that. Would explain his abdominal tenderness this week better than the initial CAT scan findings. No surgical intervention planned. No need for drainage or IR consult currently. Depending on the patient's outpatient course will consider follow-up CAT scan in 7 to 14 days. From our point of view the patient could be discharged on oral antibiotics. Follow-up with myself next week. Objective - Vital Signs Vital signs: Vital Signs Temp 98.1 F 06/27/24 07:35 Pulse 60 06/27/24 07:53 Resp 17 06/27/24 07:53 BP 148/84 06/27/24 07:35 Pulse Ox 98 06/27/24 07:35 FiO2 Intake & Output 06/26/24 06/27/24 06/27/24 18:59 06:59 18:59 Other: Voiding Method Toilet Toilet Toilet # Voids 1 3 # Bowel Movements 1 1 - Labs CBC & Chem 7: 06/26/24 02:41 06/26/24 02:41 Labs: Microbiology - Last 24 Hours (Table) 06/21/24 23:37 Blood Culture - Final Blood
--- NOTE | 2024-06-27 15:23 | P.PN ---
Subjective Progress Note Date: 06/26/24 Principal diagnosis: Reason for follow-up is diverticulitis and right hip surgical site infection Patient is a 73-year-old with a past medical history significant for heart failure hypertension osteoarthritis myasthenia gravis patient did have a right hip arthroplasty on 06/07/2024 patient apparently has been dealing with fever and outpatient CT was positive for diverticulitis with the patient has been admitted to hospital. On today's evaluation that is 06/26/2024,the patient denies any fever or any chills, patient is breathing comfortably on room air, the patient denies chest pain shortness of breath and no significant cough, patient has been complaining of more abdominal pain today no nausea vomiting have some diarrhea. Patient white count is 5.06 creatinine is 1.0 Objective - Vital Signs Vital signs: Vital Signs Temp 99.6 F 06/26/24 07:08 Pulse 56 L 06/26/24 07:08 Resp 16 06/26/24 07:08 BP 148/78 06/26/24 07:08 Pulse Ox 98 06/26/24 07:08 FiO2 Intake & Output 06/25/24 06/26/24 06/26/24 18:59 06:59 18:59 Other: Voiding Method Toilet Toilet # Voids 3 # Bowel Movements 1 - Exam GENERAL DESCRIPTION: An elderly male lying in bed in no distress RESPIRATORY SYSTEM: Unlabored breathing , decreased breath sounds at bases HEART: S1 S2 regular rate and rhythm , ABDOMEN: Soft , left-sided tenderness EXTREMITIES: Right hip incision with less erythema - Labs CBC & Chem 7: 06/26/24 02:41 06/26/24 02:41 Labs: Abnormal Lab Results - Last 24 Hours (Table) 06/26/24 06/26/24 Range/Units 02:41 02:41 RBC 3.80 L (4.40-5.60) X 10*6/uL Hgb 11.1 L (13.0-17.0) g/dL Hct 34.0 L (39.6-50.0) % Lymphocytes # 0.86 L (0.90-5.00) X 10*3/uL BUN/Creatinine Ratio 9.10 L (12.00-20.00) Ratio Microbiology - Last 24 Hours (Table) 06/21/24 23:37 Blood Culture - Preliminary Blood Assessment and Plan (1) Sepsis Current Visit: Yes Status: Acute Code(s): A41.9 - SEPSIS, UNSPECIFIED ORGANISM SNOMED Code(s): 23317416 (2) Diverticulitis Current Visit: Yes Status: Acute Code(s): K57.92 - DVTRCLI OF INTEST, PART UNSP, W/O PERF OR ABSCESS W/O BLEED SNOMED Code(s): 573394026 (3) Surgical site infection Current Visit: Yes Status: Acute Code(s): T81.49XA - INFECTION FOLLOWING A PROCEDURE, OTHER SURGICAL SITE, INIT SNOMED Code(s): 36526530 Plan: 1patient presented hospital with sepsis in this patient who did have fever tachycardia elevated white count meeting criteria for SIRS/sepsis source is likely acute diverticulitis however the patient also have recent right hip arthroplasty with the middle part of incision did have some erythema and the patient mention some drainage possible component of surgical site infection not entirely excluded and will need to cover for both the gram-positive as well as gram-negative enteric pathogen 2-blood culture as well as culture from the right hip surgical site has been obtained which are so far negative 3-patient did have resolution of his fever white count has normalized, has been complaining of more pain CT abdominal pelvis has been ordered results will follow 4patient to continue with Zosyn 3.375 g every 8 hours however discontinue daptomycin 4 mg/kg daily and monitor clinical course closely Dictation was produced using [employer] dictation software. please excuse any grammatical, word or spelling errors. Time with Patient: Less than 30
--- NOTE | 2024-06-27 15:24 | P.PN ---
Subjective Progress Note Date: 06/27/24 Principal diagnosis: Reason for follow-up is diverticulitis and right hip surgical site infection Patient is a 73-year-old with a past medical history significant for heart failure hypertension osteoarthritis myasthenia gravis patient did have a right hip arthroplasty on 06/07/2024 patient apparently has been dealing with fever and outpatient CT was positive for diverticulitis with the patient has been admitted to hospital. On today's evaluation that is 06/27/2024,the patient remains to be afebrile, patient is on room air not requiring supplemental oxygen and denies any shortness of breath no chest pain or cough.Patient denies having any nausea or vomiting, abdominal pain is controlled with the pain medication. No new lab has been obtained today CT abdomen pelvis did shows acute diverticulitis suspect small contained microperforation with a small abscess. Objective - Vital Signs Vital signs: Vital Signs Temp 98.1 F 06/27/24 07:35 Pulse 60 06/27/24 07:53 Resp 17 06/27/24 07:53 BP 148/84 06/27/24 07:35 Pulse Ox 98 06/27/24 07:35 FiO2 Intake & Output 06/26/24 06/27/24 06/27/24 18:59 06:59 18:59 Other: Voiding Method Toilet Toilet Toilet # Voids 1 3 # Bowel Movements 1 1 - Exam GENERAL DESCRIPTION: An elderly male lying in bed in no distress RESPIRATORY SYSTEM: Unlabored breathing , decreased breath sounds at bases HEART: S1 S2 regular rate and rhythm , ABDOMEN: Soft , left-sided tenderness EXTREMITIES: Right hip incision with less erythema - Labs CBC & Chem 7: 06/26/24 02:41 06/26/24 02:41 Assessment and Plan (1) Sepsis Current Visit: Yes Status: Acute Code(s): A41.9 - SEPSIS, UNSPECIFIED ORGANISM SNOMED Code(s): 66541887 (2) Diverticulitis Current Visit: Yes Status: Acute Code(s): K57.92 - DVTRCLI OF INTEST, PART UNSP, W/O PERF OR ABSCESS W/O BLEED SNOMED Code(s): 696824643 (3) Surgical site infection Current Visit: Yes Status: Acute Code(s): T81.49XA - INFECTION FOLLOWING A PROCEDURE, OTHER SURGICAL SITE, INIT SNOMED Code(s): 63218705 Plan: 1patient presented hospital with sepsis in this patient who did have fever tachycardia elevated white count meeting criteria for SIRS/sepsis source is likely acute diverticulitis however the patient also have recent right hip arthroplasty with the middle part of incision did have some erythema and the patient mention some drainage possible component of surgical site infection not entirely excluded and will need to cover for both the gram-positive as well as gram-negative enteric pathogen 2-blood culture as well as culture from the right hip surgical site has been ob tained which are so far negative 3-patient did have resolution of his fever white count has normalized, CT today shows evidence of diverticulitis with microperforation and small abscess surgery recommending no intervention and has cleared him for discharge on oral antibiotic for now we will continue with the IV Zosyn once cleared by other [employer] retailer sales consultant will transition to oral Ceftin and Flagyl for 10 days Dictation was produced using [employer] dictation software. please excuse any grammatical, word or spelling errors. Time with Patient: Less than 30
[2024-06-28 04:28] LABS: Basophils # (A) 0.03 10*3/uL (0.00-0.10); Basophils % (A) 0.4 %; Eosinophils # (A) 0.24 10*3/uL (0.04-0.35); Eosinophils % (A) 3.3 %; HGB 11.6 g/dL (13.0-17.0); Lymphocytes # (A) 0.96 10*3/uL (0.90-5.00); Lymphocytes % (A) 13.4 %; MCH 29.1 pg (27.0-32.0); MCHC 33.1 g/dL (32.0-37.0); MCV 87.9 fL (80.0-97.0); Mean Platelet Volume 9.7 fL (9.5-12.2); Monocytes # (A) 0.45 10*3/uL (0.20-1.00); Monocytes % (A) 6.3 %; Neutrophils # (A) 5.47 10*3/uL (1.80-7.70); Neutrophils % (A) 76.2 %; Platelet Count 370 10*3/uL (140-440); RBC 3.98 10*6/uL (4.40-5.60); RDW 13.6 % (11.5-14.5); WBC 7.18 10*3/uL (4.50-10.00)
[2024-06-28 07:22] VITALS: BP 134/74; PULSE 54; RESP 18; TEMP 98.3
--- NOTE | 2024-06-28 11:33 | P.PN ---
Subjective Progress Note Date: 06/28/24 Principal diagnosis: Diverticulitis Patient doing better today. Pain continues to improve. Minimal discomfort currently. Tolerating diet. No nausea or vomiting. No fevers. White blood cell count normal. Objective - Vital Signs Vital signs: Vital Signs Temp 98.3 F 06/28/24 06:48 Pulse 54 L 06/28/24 08:11 Resp 18 06/28/24 09:22 BP 134/74 06/28/24 06:48 Pulse Ox 97 06/28/24 06:48 FiO2 Intake & Output 06/27/24 06/28/24 06/28/24 18:59 06:59 18:59 Intake Total 240 Balance 240 Intake: Oral 240 Other: Voiding Method Toilet Toilet Toilet # Voids 2 2 # Bowel Movements 2 - Exam Abdomen: Soft, nondistended, minimal left lower quadrant tenderness - Labs CBC & Chem 7: 06/28/24 03:28 06/26/24 02:41 Labs: Abnormal Lab Results - Last 24 Hours (Table) 06/28/24 Range/Units 03:28 RBC 3.98 L (4.40-5.60) 10*6/uL Hgb 11.6 L (13.0-17.0) g/dL Hct 35.0 L (39.6-50.0) % Microbiology - Last 24 Hours (Table) 06/21/24 23:37 Blood Culture - Final Blood Assessment and Plan (1) Diverticulitis Narrative/Plan: Patient doing well at this time. Continue outpatient oral antibiotics. Follow- up 1 week. Current Visit: Yes Status: Acute Code(s): K57.92 - DVTRCLI OF INTEST, PART UNSP, W/O PERF OR ABSCESS W/O BLEED SNOMED Code(s): 953604213
--- NOTE | 2024-06-28 15:03 | P.PN ---
Subjective Progress Note Date: 06/28/24 Principal diagnosis: Reason for follow-up is diverticulitis and right hip surgical site infection Patient is a 73-year-old with a past medical history significant for heart failure hypertension osteoarthritis myasthenia gravis patient did have a right hip arthroplasty on 06/07/2024 patient apparently has been dealing with fever and outpatient CT was positive for diverticulitis with the patient has been admitted to hospital. On today's evaluation that is 06/28/2024, the patient continues to be afebrile, the patient is on room air and breathing comfortably, the Pt denies having any chest pain or cough, the patient did have improvement in his abdominal pain no nausea vomiting feeling better. Patient white count 7.18 creat is 1.0 Objective - Vital Signs Vital signs: Vital Signs Temp 98.3 F 06/28/24 06:48 Pulse 54 L 06/28/24 08:11 Resp 18 06/28/24 09:22 BP 134/74 06/28/24 06:48 Pulse Ox 97 06/28/24 06:48 FiO2 Intake & Output 06/27/24 06/28/24 06/28/24 18:59 06:59 18:59 Intake Total 240 Balance 240 Intake: Oral 240 Other: Voiding Method Toilet Toilet Toilet # Voids 2 2 # Bowel Movements 2 - Exam GENERAL DESCRIPTION: An elderly male lying in bed in no distress RESPIRATORY SYSTEM: Unlabored breathing , decreased breath sounds at bases HEART: S1 S2 regular rate and rhythm , ABDOMEN: Soft , left-sided tenderness EXTREMITIES: Right hip incision with less erythema - Labs CBC & Chem 7: 06/28/24 03:28 06/26/24 02:41 Labs: Abnormal Lab Results - Last 24 Hours (Table) 06/28/24 Range/Units 03:28 RBC 3.98 L (4.40-5.60) 10*6/uL Hgb 11.6 L (13.0-17.0) g/dL Hct 35.0 L (39.6-50.0) % Microbiology - Last 24 Hours (Table) 06/21/24 23:37 Blood Culture - Final Blood Assessment and Plan (1) Sepsis Status: Acute Code(s): A41.9 - SEPSIS, UNSPECIFIED ORGANISM SNOMED Code(s): 76057814 (2) Diverticulitis Status: Acute Code(s): K57.92 - DVTRCLI OF INTEST, PART UNSP, W/O PERF OR A BSCESS W/O BLEED SNOMED Code(s): 527146244 (3) Surgical site infection Status: Acute Code(s): T81.49XA - SNOMED Code(s): 75369318 Plan: 1patient presented hospital with sepsis in this patient who did have fever tachycardia elevated white count meeting criteria for SIRS/sepsis source is likely acute diverticulitis however the patient also have recent right hip arthroplasty with the middle part of incision did have some erythema and the patient mention some drainage possible component of surgical site infection not entirely excluded and will need to cover for both the gram-positive as well as gram-negative enteric pathogen 2-blood culture as well as culture from the right hip surgical site has been obtained which are so far negative 3-patient did have resolution of his fever white count has normalized, CT repeat shows evidence of diverticulitis with microperforation and small abscess surgery recommending no intervention 4plan is for 10-day course of oral Ceftin and Flagyl on discharge and close outpatient follow-up Dictation was produced using [employer] dictation software. please excuse any grammatical, word or spelling errors. Time with Patient: Less than 30
--- NOTE | 2024-07-02 09:14 | P.PN ---
Subjective Progress Note Date: 06/27/24 73-year-old male was brought in by his because of his severe left lower quadrant abdominal pain and diverticulitis for which patient on oral antibiotics as an outpatient patient is severe sigmoid diverticulitis without any abscess. Patient also had a hip surgery 2 weeks ago patient is surgical site appears to be infected because of which patient was started on daptomycin here patient had fever yesterday patient was eval by infectious disease and daptomycin is added to the Zosyn because of the possible surgical site area infection. Orthopedics will evaluate the patient. Orthopedic surgery recommending incision and drainage of the surgical site area. Patient also has left inguinal hernia had multiple surgeries in the past General Surgery. Will evaluate the patient as well 06/23/2024 Patient's right hip area redness almost completely resolved with the daptomycin. Orthopedic surgery is not planning on any incision and drainage as patient has significant improvement and patient does not have swelling in the joint. Patient still has left lower quadrant abdominal tenderness which is still significant patient remains on Zosyn. 06/24/2024 Patient is evaluated in follow up on the medical floor. Patient continues on IV daptomycin and IV Zosyn. His abdomen is less tender however he continues to have some diarrhea. He is tolerating a liquid diet at this time. Labs today reveal white blood cell count 1.04, hemoglobin 1.4, sodium of 137 potassium 4.6, BUN of 12 creatinine 0.9. Patient is eval today in follow-up in the medical floor. His incision to the right hip arthroplasty approximated and scabbed over with minimal erythema surrounding the wound. It is no longer draining and dressing is dry and intact. His wound culture has been negative so far as well as a negative blood culture. He continues to report liquid stool and will add questran. He continues on IV daptomycin and IV Zosyn. Infectious disease following. 06/26/2024 Patient evaluated today in follow up. He is requesting PRN dose of mestinon as he states his vision is slightly blurry and he is beginning to notice some trouble swallowing. Supposed to have IVIG infusion as an outpatient on . His right hip incision is dry and scabbed. His cultures are all negative so far. ID recommending PO antibiotics on DC. He remains on liquid diet and still having abdominal pain and tenderness; worse after eating. He continues to have multiple episodes of loose stools. 06/27/2024 Patient evaluated today in follow up. Patients MG symptoms improved and states he will hold off on the IVIG for when he is discharged. Repeat abdominal pelvis CT reveals microperforation. Soft tissue swelling and edema along the right hip is partially improved. There is a poorly defined fluid collection along the intermuscular fascia lateral right hip is slightly smaller but still sizable. Mild diffuse gastric thickening versus appearance due to nondistention. Review of Systems Constitutional: Denied any fatigue denied any fever. Cardio vascular: denied any chest pain, palpitations Gastrointestinal: denied any nausea, vomiting, diarrhea Pulmonary: Denied any shortness of breath cough Neurologic denied any new focal deficits All inpatient medications were reviewed and appropriate changes in these medications as dictated in the interval history and assessment and plan. PHYSICAL EXAMINATION: GENERAL: The patient is alert and oriented x3, not in any acute distress. Well developed, well nourished. HEENT: Pupils are round and equally reacting to light. EOMI. No scleral icterus. No conjunctival pallor. Normocephalic, atraumatic. No pharyngeal erythema. No thyromegaly. CARDIOVASCULAR: S1 and S2 present. No murmurs, rubs, or gallops. PULMONARY: Chest is clear to auscultation, no wheezing or crackles. ABDOMEN: Mild distention with the left lower quadrant abdominal tenderness which is severe, normoactive bowel sounds. No palpable organomegaly. MUSCULOSKELETAL: Right hip surgical site area is red. Appears to be infected present EXTREMITIES: No cyanosis, clubbing, or pedal edema. NEUROLOGICAL: Gross neurological examination did not reveal any focal deficits. SKIN: No rashes. Assessment and plan - Sepsis secondary to sigmoid diverticulitis and possible infection of the surgical site area in the right hip. He had a replacement. Patient was started on daptomycin for a right hip surgical site area infection, cultures are negative so far. - Right hip surgical site area infection. For which patient is on daptomycin given improvement in redness of the surgical site area. - Diverticulitis patient is on liquid diet which will be advanced to full liquid today. Patient is on IV zosyn. ID following. - Diarrhea could be from antibiotics; check C.Dif - Recent right hip replacement - History of myasthenia gravis for which patient is on rivastigmine and requesting PRN dose today. Supposed to get IVIG outpatient on . - Hypothyroidism history of thyroid cancer status post thyroidectomy patient is on immunosuppressive therapy DVT prophylaxis: Patient will be started on Lovenox The impression and plan of care has been dictated by Lissa Abbott, Nurse Practitioner as directed. Dr. Wale MD I have performed a history and physical examination and medical decision making of this patient, discussed the same with the dictator, and agree with the dictators assessment and plan as written, documented as a scribe. Based on total visit time, I have performed more than 50% of this visit. Objective - Vital Signs Vital signs: Vital Signs Temp 97.7 F 06/27/24 13:56 Pulse 61 06/27/24 13:56 Resp 17 06/27/24 13:56 BP 163/82 06/27/24 13:56 Pulse Ox 97 06/27/24 13:56 FiO2 Intake & Output 06/26/24 06/27/24 06/27/24 18:59 06:59 18:59 Other: Voiding Method Toilet Toilet Toilet # Voids 1 3 2 # Bowel Movements 1 1 2 - Labs CBC & Chem 7: 06/28/24 03:28 06/26/24 02:41 Labs: Microbiology - Last 24 Hours (Table) 06/21/24 23:37 Blood Culture - Final Blood Assessment and Plan Time with Patient: Less than 30
--- NOTE | 2024-07-02 09:19 | P.DS ---
Providers Date of admission: 06/24/24 09:37 Expected date of discharge: 06/28/24 Attending physician: Timur Chapman Consults: 06/22/24 03:30 Consult Physician Routine Consulting Provider: Luciano Grijalva Consult Reason/Comments: post op infxn Do you want consulting provider notified?: Yes, Notify in am 06/22/24 09:04 Consult Physician Routine Consulting Provider: Serg Ruiz Consult Reason/Comments: diverticulitis Do you want consulting provider notified?: Yes 06/22/24 09:05 Consult Physician Routine Consulting Provider: Lam Vincent Consult Reason/Comments: ID management; diverticulitis; fever; recent right hip arthroplasty Do you want consulting provider notified?: Yes Primary care physician: Stated None Hospital Course: Final Diagnosis - Sepsis secondary to sigmoid diverticulitis - Right hip surgical site area infection. - Diverticulitis - Diarrhea - Recent right hip replacement - History of myasthenia gravis for which patient is on rivastigmine and r equesting PRN dose today. Supposed to get IVIG outpatient on . - Hypothyroidism history of thyroid cancer status post thyroidectomy patient is on immunosuppressive therapy Discharge Disposition Patient stable for discharge home with overall guarded prognosis. He will continue on antibiotic therapy in the form of oral Ceftin for the next 10 days as well as oral Flagyl for the next 10 days. The cephalexin be discontinued on discharge. Patient has a follow-up with general surgery on July 04 at 915. Patient has a follow-up with orthopedic surgery on July 10 at 10 AM. He should follow-up with his PCP also. Repeat blood work in 2 to 3 days. Hospital Course This is a 73-year-old male was brought in by his because of his severe left lower quadrant abdominal pain and diverticulitis. Patient has been on oral antibiotics as an outpatient for suspected surgical site infection of his recent right hip procedure. Patient is severe sigmoid diverticulitis without any abscess. Patient also had a hip surgery 2 weeks ago patient is surgical site appears to be infected because of which patient was started on daptomycin here and infectious disease and orthopedics were consulted. Patient had fever yesterday patient was eval by infectious disease and daptomycin is added to the Zosyn because of the possible surgical site area infection. Orthopedics will evaluate the patient. Orthopedic surgery recommending incision and drainage of the surgical site area. Patient also has left inguinal hernia had multiple surgeries in the past. General surgery was consulted as well. Patient's right hip area redness almost completely resolved with the daptomycin. Orthopedic surgery is not planning on any incision and drainage as patient has significant improvement and patient does not have swelling in the joint. Patient still has left lower quadrant abdominal tenderness which is still significant patient remains on Zosyn.His wound culture has been negative so far as well as a nega tive blood culture. He continues to report liquid stool and will add questran. C.Dif was not collected as his stool has began to form. He is requesting PRN dose of mestinon as he states his vision is slightly blurry and he is beginning to notice some trouble swallowing. Supposed to have IVIG infusion as an outpatient on . States his symptoms were better with the dose of mestinon and will reschedule his IVIG. Repeat abdominal pelvis CT reveals microperforation. Soft tissue swelling and edema along the right hip is partially improved. There is a poorly defined fluid collection along the intermuscular fascia lateral right hip is slightly smaller but still sizable. Mild diffuse gastric thickening versus appearance due to nondistention. He is not having any overt abdominal pain and is tolerating diet. He was cleared by all consultations for discharge home. Please see medication reconciliation for a list of current medications. Thank you for allowing us to participate in the care of this patient. The impression and plan of care has been dictated by Lissa Abbott, Nurse Practitioner as directed. Dr. Wale MD I have performed a history and physical examination and medical decision making of this patient, discussed the same with the dictator, and agree with the dictators assessment and plan as written, documented as a scribe. Based on total visit time, I have performed more than 50% of this visit. Patient Condition at Discharge: Stable Plan - Discharge Summary Discharge Rx Participant: Yes New Discharge Prescriptions: New cefuroxime axetiL [Ceftin] 500 mg PO 20 #10 tab metroNIDAZOLE [Flagyl] 500 mg PO TID 10 Days #30 tab Continue Potassium Chloride [Klor-Con 20] 20 meq PO HS Terazosin HCl [Hytrin] 10 mg PO HS Calcium/Magnesium/Zinc [Sansfyf-Icwxfzyle-Sufh Tablet] 1 tab PO HS Metoprolol Tartrate [Lopressor] 25 mg PO HS Cholecalciferol [Vitamin D3 (125 Mcg = 5000 Iu)] 125 mcg PO HS Aspirin [Adult Low Dose Aspirin EC] 81 mg PO BID #60 tab Acetaminophen-Codeine 300-30mg [Tylenol w/codeine #3] 1 tab PO Q6H PRN PRN Reason: Pain Pyridostigmine [place] [Mestinon] 60 mg PO DAILY PRN PRN Reason: mild symptoms of mg mycophenolate mofetiL [Cellcept] 1,000 mg PO BID Ondansetron [Zofran] 4 mg PO Q8HR PRN #12 tab PRN Reason: Nausea predniSONE [Deltasone] 20 mg PO PANIAGUA HYDROcodone/APAP 7.5-325MG [[place] 7.5-325] 1 tab PO Q6H PRN PRN Reason: Pain ALPRAZolam [Xanax] 0.5 - 1 mg PO BID PRN PRN Reason: procedure Discontinued Cephalexin [Keflex] 500 mg PO Q12HR No Action Amoxicillin 2,000 mg PO ONCE PRN PRN Reason: 1 hr prior to dental procedure Discharge Medication List Potassium Chloride [Klor-Con 20] 20 meq PO HS 11/12/15 [History] Terazosin HCl [Hytrin] 10 mg PO HS 11/12/15 [History] Calcium/Magnesium/Zinc [Mrwxnte-Tycbgoxvl-Bvoo Tablet] 1 tab PO HS 10/09/18 [History] Metoprolol Tartrate [Lopressor] 25 mg PO HS 10/09/18 [History] Cholecalciferol [Vitamin D3 (125 Mcg = 5000 Iu)] 125 mcg PO HS 03/15/23 [History] mycophenolate mofetiL [Cellcept] 1,000 mg PO BID 03/15/23 [History] Aspirin [Adult Low Dose Aspirin EC] 81 mg PO BID #60 tab 06/07/24 [Rx] Ondansetron [Zofran] 4 mg PO Q8HR PRN #12 tab 06/07/24 [Rx] ALPRAZolam [Xanax] 0.5 - 1 mg PO BID PRN 06/22/24 [History] Acetaminophen-Codeine 300-30mg [Tylenol w/codeine #3] 1 tab PO Q6H PRN 06/22/24 [History] Amoxicillin 2,000 mg PO ONCE PRN 06/22/24 [History] HYDROcodone/APAP 7.5-325MG [[place] 7.5-325] 1 tab PO Q6H PRN 06/22/24 [History] Pyridostigmine [place] [Mestinon] 60 mg PO DAILY PRN 06/22/24 [History] predniSONE [Deltasone] 20 mg PO PANIAGUA 06/22/24 [History] cefuroxime axetiL [Ceftin] 500 mg PO 20 #10 tab 06/27/24 [Rx] metroNIDAZOLE [Flagyl] 500 mg PO TID 10 Days #30 tab 06/27/24 [Rx] Follow up Appointment(s)/Referral(s): Serg Ruiz MD [Medical Doctor] - 07/04/24 9:15 am [facility], [NON-STAFF] - As Needed None,Stated [Primary Care Provider] - 1-2 days Lam iVncent MD [STAFF PHYSICIAN] - 1 Week Luciano Grijalva MD [STAFF PHYSICIAN] - 07/10/24 10:00 am Ambulatory/Diagnostic Orders: Basic Metabolic Panel [LAB.AMB] Location: None Selected Complete Blood Count w/diff [LAB.AMB] Time Frame: 3 Days, Location: None Selected Patient Instructions/Handouts: Gout (GEN), Diverticulitis Diet (DC) Discharge/Stand Alone Forms: Area PCPs Discharge Disposition: HOME SELF-CARE
== END 2024-06-28 14:57 | disposition home or self-care (01) | DRG 862 ==
LOC: EC 22:52 → 6NMEDSUR 06-22 03:30 → 5NMEDONC 06-22 06:51 → 4SSUR 06-22 10:51 → OBSVTOIN 06-24 09:37 → 4SSUR 06-26 22:23
PROVIDERS: ADMIT Hospitalist; ATTEND Hospitalist
DX: T81.41XA Infection following a procedure, superficial incisional surgical site, initial encounter (principal); A41.9 Sepsis, unspecified organism; D84.821 Immunodeficiency due to drugs; K57.20 Diverticulitis of large intestine with perforation and abscess without bleeding; R16.2 Hepatomegaly with splenomegaly, not elsewhere classified; R13.10 Dysphagia, unspecified; I11.0 Hypertensive heart disease with heart failure; E89.0 Postprocedural hypothyroidism; K57.32 Diverticulitis of large intestine without perforation or abscess without bleeding; I50.9 Heart failure, unspecified; G70.00 Myasthenia gravis without (acute) exacerbation; K40.90 Unilateral inguinal hernia, without obstruction or gangrene, not specified as recurrent; Z96.643 Presence of artificial hip joint, bilateral; H91.91 Unspecified hearing loss, right ear; Z85.850 Personal history of malignant neoplasm of thyroid; Z79.624 Long term (current) use of inhibitors of nucleotide synthesis; Z79.82 Long term (current) use of aspirin; Z79.899 Other long term (current) drug therapy; Z79.52 Long term (current) use of systemic steroids; Y83.8 Other surgical procedures as the cause of abnormal reaction of the patient, or of later complication, without mention of misadventure at the time of the procedure
CPT/HCPCS: 36415; 74177; 80048; 80053; 83605; 85025; 85027; 85610; 85652; 85730; 86140; 87040; 87070; 87205; 96361; 96365; 96366; 96367; 96375; 99285

== ENCOUNTER → 2024-06-21 | Outpatient (CLI) | payer MEDICARE, BC ==
--- NOTE | 2024-06-21 16:26 | CT ---
EXAMINATION TYPE: CT abdomen pelvis wo con CT DLP: 656.7 mGycm, Automated exposure control for dose reduction was used. DATE OF EXAM: 06/21/2024 4:11 PM COMPARISON: No direct comparisons. CLINICAL INDICATION:Male, 73 years old with history of R10.32 LEFT LOWER QUADRANT PAIN; LLQ pain and a feeling of lump in that area. TECHNIQUE: Standard CT of the abdomen and pelvis without IV or oral contrast. Lack of IV or oral co ntrast limits evaluation of solid and hollow organ viscera. Coronal and sagittal reformats were perfo rmed. FINDINGS: LOWER CHEST: Cardiomegaly. Bibasilar dependent subsegmental atelectasis. Elevation of the right hemid iaphragm. ABDOMEN LIVER: Unremarkable noncontrast appearance. GALLBLADDER AND BILE DUCTS: Unremarkable noncontrast appearance. PANCREAS: Unremarkable noncontrast appearance. SPLEEN: Unremarkable noncontrast appearance. ADRENAL GLANDS: Unremarkable noncontrast appearance.. KIDNEYS AND URETERS: No evidence of hydronephrosis or renal calculus. Nonspecific bilateral perinephr ic fat stranding. PELVIS BLADDER: Limited examination due to streak artifact from hip prosthesis. There is some surrounding fa shioning from sigmoid diverticulitis. REPRODUCTIVE: Limited evaluation due to streak artifact from hip prosthesis. ABDOMEN & PELVIS STOMACH AND BOWEL: Stomach and duodenum are unremarkable. Distal colonic diverticulosis with fat stra nding, wall thickening and surrounding inflammatory changes involving the sigmoid colon. No organized fluid collection. No evidence of bowel obstruction. PERITONEUM: No evidence of pneumoperitoneum or free fluid. VASCULATURE: No evidence of aortic aneurysm. MUSCULOSKELETAL: No acute osseous abnormalities and post surgical changes from bilateral total hip ar throplasty and posterior lumbar fusion L3-L5 with bilateral pedicle screws and rods and disc spaces. Hardware appears intact with appropriate alignment. Mild retrolisthesis of L2 on L3. Anterior osteoph ytosis of the visualized lower thoracic spine. Degenerative changes of the pubic symphysis and bilate ral SI joints. LYMPH NODES: No gross evidence for lymphadenopathy. SOFT TISSUE/ABDOMINAL WALL: Fat filled left inguinal hernia. IMPRESSION: 1. Acute uncomplicated sigmoid diverticulitis. 2. Fat filled left inguinal hernia. A [place] level critical message alert has been initiated for Luis A Ramirez MD via the [employer] Critical Results System on 06/21/2024 4:24 PM. This message alert has been sent to Luis A Ramirez MD via the preferences provided by the clinician for the receipt of Radiology Critical Findings. Message ID [id number]. [facility], , 06/21/2024 4:24 PM
--- NOTE | 2024-06-21 20:13 | P.EN ---
I was called by bed board as the patient had a CT abd pelvis that was flagged as urgent by the radiologist. As the covering sound physician at night, I was asked to manage this radiology interpretation as the patient's PCP, Dr. Gunn was attempted to be contacted with the results to no avail and bedboard had reported that [facility] [place] [facility] covers Dr. Gunn's patient's in the hospital. I had contacted the patient and had discussed findings had shown acute sigmoid diverticulitis. He is unaware of what of diverticulitis entails. i had explained to him the significance of diverticulitis. He explains to me that he is currently on keflex for an allergic reaction to adhesive tape during his most recent arthoplasty and will be on keflex for 3 more days. i had explained to him I would like to prescribe him other antibiotics. I had called his pharmacy [facility] choice[facility] listed on EMR. I had left a voicemail to the pharmacy prescribing ceftin 500 mg bid x7 days along with metronidazole 500 mg BID x7 days. I had explained to Mr. Fabian he should see Dr. Gunn/pcp next week for follow up. I should clarify, i have not personally seen this patient or established care with this patient. I am strictly the covering [facility] [place] [facility] cutter barrel drum at night and I was paged in regards to the significance of the CT abd pelvis as the ordering physician/Dr. Gunn was unable to be reached regarding the interpretation of the urgent results of the patient's CT abd pelvis he had today on 06/21/2024.
== END | disposition home or self-care (01) ==
LOC: RADCTMAIN 15:05
PROVIDERS: ATTEND Family Medicine
DX: K57.32 Diverticulitis of large intestine without perforation or abscess without bleeding (principal); K40.90 Unilateral inguinal hernia, without obstruction or gangrene, not specified as recurrent
CPT/HCPCS: 74176

== ENCOUNTER → 2024-07-02 | Outpatient (CLI) | payer MEDICARE, BC ==
[2024-07-02 14:48] LABS: Basophils # (A) 0.04 X 10*3/uL (0.00-0.10); Basophils % (A) 0.5 %; Eosinophils # (A) 0.16 X 10*3/uL (0.04-0.35); Eosinophils % (A) 2.1 %; HGB 13.1 g/dL (13.0-17.0); Lymphocytes # (A) 0.86 X 10*3/uL (0.90-5.00); Lymphocytes % (A) 11.5 %; MCH 29.3 pg (27.0-32.0); MCHC 32.8 g/dL (32.0-37.0); MCV 89.5 FL (80.0-97.0); Mean Platelet Volume 10.1 FL (9.5-12.2); Monocytes # (A) 0.59 X 10*3/uL (0.20-1.00); Monocytes % (A) 7.9 %; NRBC Per 100 WBC 0 X 10*3/uL (0.00-0.01); Neutrophils % (A) 77.5 %; Platelet Count 415 X 10*3/uL (140-440); RBC 4.47 X 10*6/uL (4.40-5.60); RDW 14.3 % (11.5-14.5); WBC 7.49 X 10*3/uL (4.50-10.00)
[2024-07-02 14:58] LABS: BUN/Creat Ratio 28.64 Ratio (12.00-20.00); Blood Urea Nitrogen 31.5 mg/dL (9.0-27.0); Calcium 9.5 mg/dL (8.7-10.3); Chloride 108 mmol/L (96-109); Glucose 109 mg/dL (70-110); Potassium 4.2 mmol/L (3.5-5.5); Sodium 142 mmol/L (135-145)
== END | disposition home or self-care (01) ==
LOC: LABWHC1 10:06
PROVIDERS: ATTEND Nurse Practitioner Family
DX: K57.92 Diverticulitis of intestine, part unspecified, without perforation or abscess without bleeding (principal)
CPT/HCPCS: 36415; 80048; 85025

== ENCOUNTER → 2024-07-11 | Outpatient (CLI) | payer MEDICARE, BC ==
[2024-07-11 10:25] LABS: African American GFR (CKD) 82 (>60 ml/min/1.73 sqM); Blood Urea Nitrogen 32 mg/dL (9-20); Non-African American GFR(CKD) 71 (>60 ml/min/1.73 sqM)
--- NOTE | 2024-07-11 15:01 | CT ---
EXAMINATION TYPE: CT abdomen pelvis w con DATE OF EXAM: 07/11/2024 11:48 AM COMPARISON: 06/27/2024 CLINICAL INDICATION: Male, 73 years old with history of K57.32 DIVERTICULITIS; abdominal pain, follow up TECHNIQUE: CT abdomen pelvis w con; delayed images through the kidneys. Sagittal and coronal reformat s were created on a separate workstation. Contrast used:100mL mL of Isovue 300 with IV Contrast, (none if empty) Oral contrast used: with Oral Contrast CT DLP: 1335.1 mGycm, Automated exposure control for dose reduction was used. FINDINGS: Heart upper limits of normal in size without pericardial effusion. Coronary calcifications. Prominent postinflammatory scarring redemonstrated at the lung bases. Small hiatal hernia. Hepatomegaly at 19.6 cm. No focal liver lesion. Portal venous system is patent. No biliary ductal dil atation. Gallbladder, adrenal glands, kidneys, and pancreas within normal limits. Redemonstrated splenomegaly at 16.1 cm. No dilated small bowel, free fluid, or free air. No mesenteric or retroperitoneal lymphadenopathy. Scattered mild to moderate stool. Sigmoid diverticulosis redemonstrated. There is residual mild to mo derate inflammatory fat stranding and edema along the proximal to mid sigmoid colon with correspondin g wall thickening corresponding to ongoing inflammatory changes of acute diverticulitis. Overall oropeza ges show some improvement compared to 06/27/2024. There is residual contained leak measuring 2.0 x 2.3 x 2.2 cm projecting anteriorly versus residual inflamed large diverticulum. Refer to axial image 75 and sagittal image 31. Fat-containing indirect left inguinal hernia again noted. The previous inflammatory edema within the hernia sac has resolved. Bladder is urine distended. Extensive metal artifact related to the patient's total hip arthroplasty limits visualization of pelvic structures. Bones: Status post L3-L5 posterior and interbody lumbar fusion with laminectomies. Degenerative grade 1 retrolisthesis above the fusion at L2-L3. IMPRESSION: 1. Improving but residual inflammatory changes related to the patient's proximal to mid sigmoid diver ticulitis. Mild to moderate inflammation remains. There is either a 2.3 x 2.2 x 2.0 cm contained leak projecting anteriorly versus residual inflammation around a large diverticulum. This measured 2.1 cm , previously. 2. Hepatosplenomegaly (liver 19.6 cm and spleen 16.1 cm). 3. Small to moderate-sized fat-containing left indirect inguinal hernia. Small hiatal hernia. 4. Prominent postinflammatory scarring at the visualized lower lungs. [facility], , 07/11/2024 2:59 PM
== END | disposition home or self-care (01) ==
LOC: RADCTMAIN 07-08 14:28
PROVIDERS: ATTEND Surgery
DX: K57.32 Diverticulitis of large intestine without perforation or abscess without bleeding (principal); R16.2 Hepatomegaly with splenomegaly, not elsewhere classified; K40.90 Unilateral inguinal hernia, without obstruction or gangrene, not specified as recurrent; K44.9 Diaphragmatic hernia without obstruction or gangrene
CPT/HCPCS: 82565; 84520; 74177; 36415; Q9967

== ENCOUNTER → 2024-08-14 | Outpatient (CLI) | payer MEDICARE, BC ==
[2024-08-14 09:20] LABS: African American GFR (CKD) 74 (>60 ml/min/1.73 sqM); Blood Urea Nitrogen 28 mg/dL (9-20); Non-African American GFR(CKD) 64 (>60 ml/min/1.73 sqM)
--- NOTE | 2024-08-17 18:55 | CT ---
EXAMINATION TYPE: CT abdomen pelvis w con DATE OF EXAM: 08/14/2024 11:19 AM COMPARISON: None. 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 Reconstructed images are reviewed on the computer in the coronal plane. CONTRAST: mL of . Study performed DLP: mGycm, Automated exposure control for dose reduction was used. FINDINGS: Limited CT sections are obtained the lung bases. There is a 0.8 cm nodule lateral right lung. Series 3 image 1. Follow-up is recommended. There is some mild infiltrate through the left lung base and po sterior right lung base likely in the basis of atelectasis. Mild Coronary artery calcification is pr esent CT ABDOMEN: Liver: Normal Spleen: Normal Pancreas: Normal Adrenal glands: The adrenal glands are normal. Gallbladder: Normal Kidneys: No masses are evident. No hydronephrosis is present. No cysts are present. Delayed images were obtained through the kidneys, which remain unremarkable. Aorta: Normal Inferior vena cava: Normal. CT PELVIS: Bilateral inferior pelvic obscuration from a lateral hip prostheses is present. There are diverticuli within the sigmoid colon. Some minimal wall thickening may be present along the anterior sigmoid colon wall. There is an adjacent air collection which appears to communicate with t he sigmoid colon. A large diverticulum likely present in this location, example image series 3 image 79. This was present previously and does not appear enlarged. This may be slightly smaller than the c omparison. No definite abscess formation identified on this exam. There are loops of bowel which are incompletely distended or lack oral contrast limiting their evaluation. Appendix: Normal as visualized. Urinary bladder: Poor visualization. The portion visualized is normal Genitourinary structures: Prostate appears normal Osseous structures: No suspicious lytic or sclerotic lesions. Postsurgical changes are within the lum bar spine IMPRESSION: 1. Right lung base nodule discussed above. Follow-up recommended. 2. Diverticulosis. No definite acute diverticulitis identified. 3. Previous collection anterior sigmoid with diverticular changes appears more suggestive for diverti culum at this time. No thickened wall or abscess formation identified. This area may be slightly smal ler than the comparison. [facility], , 08/17/2024 6:52 PM
== END | disposition home or self-care (01) ==
LOC: RADCTMAIN 08:40
PROVIDERS: ATTEND Surgery
DX: K57.90 Diverticulosis of intestine, part unspecified, without perforation or abscess without bleeding (principal); R91.1 Solitary pulmonary nodule
CPT/HCPCS: 82565; 84520; 74177; 36415; Q9967